=== PATIENT | female | born 1975 | race Caucasian/White ===

== ENCOUNTER 2024-11-18 18:51 | Inpatient (IN) | payer OTHER, SELFPAY ==
[2024-11-18 18:59] VITALS: BP 154/92; PULSE 102; RESP 20; TEMP 36.8; O2SAT 95; BMI 28.7
--- NOTE | 2024-11-18 19:41 | PD.EDFMALE ---
ED Female Urogenital RME/HPI General Chief complaint: Urogenital-Female Stated complaint: UTI, kidney transplant needs Ertapenem IV Time Seen by Provider: 11/18/24 19:24 Arrival date/time: 11/18/24 18:51 RME / HPI RME / HPI Narrative: 48-year-old female with a past medical history of type 1 diabetes and kidney transplant in June, presents to the ED under the direction of her metal products viewer for IV antibiotics due to a urine culture that was resulted on 11/16/2024. She has been taking Macrobid for a urinary tract infection, but the culture results indicate there is no sensitivity to Macrobid. A note was sent to the patient by [facility] that indicates she needs IV ertapenem for 10 days. She does not indicate a specific dose whether 1 g or 500 mg for renal disease dosing. A new urinalysis was obtained and CBC and CMP were ordered for evaluation of her renal function. Related Data Home Medications ?Medication ?Instructions ?Recorded ?Confirmed clonazepam 0.5 mg tablet 0.5 mg PO HS 06/02/21 01/28/24 duloxetine 60 mg capsule,delayed 60 mg PO HS 07/02/21 01/28/24 release hydralazine 100 mg tablet 100 mg PO TID 09/06/21 01/28/24 pregabalin 150 mg capsule (Lyrica) 150 mg PO HS 05/26/22 01/28/24 ondansetron HCl 4 mg tablet 4 mg PRN PRN Nausea 10/14/22 01/28/24 glucagon 1 mg/0.2 mL subcutaneous 1 mg subcut PRN PRN Hypoglycemia 02/16/23 01/28/24 auto-injector (Gvoke HypoPen 2-Pack) sevelamer carbonate 800 mg tablet 800 mg PO TID 02/16/23 01/28/24 bupropion HCl 150 mg 24 hr tablet, 150 mg PO DAILY 11/18/23 01/28/24 extended release furosemide 80 mg tablet 80 mg PO DAILY 11/18/23 01/28/24 losartan 100 mg tablet 100 mg PO DAILY 11/18/23 01/28/24 vitamin B complex-vitamin C-folic 1 tab DAILY 11/18/23 01/28/24 acid 0.8 mg tablet (Alma-Farzana) Allergies Allergy/AdvReac Type Severity Reaction Status Date / Time No Known Allergies Allergy Verified 11/18/24 18:56 Course Course Course Narrative: Initial vital signs blood pressure 154/92, pulse 102, respirations 20 and nonlabored, temperature 98.3, O2 sat 95% on room air. CBC reveals a normal white count of 7.4, elevated H&H of 16.5 and 49.1 with normal platelets. ANC is normal at 6.6. CMP reveals a low sodium of 128, low chloride of 94, normal potassium, normal CO2 and gap. BUN and creatinine are mildly elevated at 27/1.4. Glucose is severely elevated at 659. Urinalysis reveals clear colorless urine with a specific gravity of 1.023 with 4+ glucose, negative ketones, negative leukocyte esterase, 1 RBC, 5 WBCs, and rare bacteria. Patient has an insulin pump and she gave herself 13 units of insulin after the lab result came back with 659. Recheck of her blood sugar revealed the low 300s. She was given 1 L of sodium chloride. Although the note from [facility] kidney transplant center indicated that the patient needed to be on IV ertapenem for 10 days, this facility does not carry or ertapenem therefore the patient was given meropenem 1000 mg IV. Contact was made with [facility] hygiene coordinator, Rafaela, who indicates the patient should be admitted to our facility at this time and if her physicians determine she needs to be transferred, they will contact this facility tomorrow. Resident hospitalist service contacted for admission. Quality Measures none Orders Category Date Time Status COVID-19 Screening Questionnaire NOW Care 11/18/24 23:19 Active Fingerstick [Bedside Blood Glucose] NOW Care 11/18/24 23:06 Active IV [Insert IV] NOW Care 11/18/24 19:44 Completed CBC Stat Lab 11/18/24 20:21 Completed CMP [Comprehensive Metabolic Panel] Stat Lab 11/18/24 20:21 Completed Urinalysis, C/S if Indicated Stat Lab 11/18/24 19:48 Completed Meropenem Inj [Merrem Inj] 1,000 mg Med 11/19/24 00:11 Discontinued SODIUM CHLORIDE 0.9% (Popper) [Ns 0.9% (P)] 50 ml IV X1 Sodium Chloride 0.9% 1000 ml [Ns] 1,000 ml Med 11/18/24 22:19 Discontinued IV 999 mls/hr Vital Signs Vital signs: Vital Signs Temperature 98.3 F 11/18/24 18:59 Pulse Rate 102 H 11/18/24 18:59 Respiratory Rate 20 11/18/24 18:59 Blood Pressure 154/92 H 11/18/24 18:59 Pulse Oximetry (%) 95 11/18/24 18:59 Oxygen Delivery Method Room Air 11/18/24 18:59 Urogenital - Female Medications / Prescriptions Medication administrations:: Medication Administration History Discontinued Medications Sodium Chloride (Ns) 1,000 mls @ 999 mls/hr IV .Q1H1M ONE Stop: 11/18/24 23:19 Last Admin: 11/18/24 23:18 Dose: 999 mls/hr Documented By: CVL Meropenem 1,000 mg/ Sodium (Chloride) 50 mls @ 100 mls/hr IV X1 ONE Stop: 11/19/24 00:12 Discharge Plan Prescriptions/Referrals Prescriptions/Med Rec: No Action clonazepam 0.5 mg tablet 0.5 mg PO HS duloxetine 60 mg capsule,delayed release(DR/EC) 60 mg PO HS Patient Comments: TAKE 1 CAPSULE BY MOUTH AT BEDTIME hydralazine 100 mg tablet 100 mg PO TID pregabalin [Lyrica] 150 mg Capsule 150 mg PO HS sevelamer carbonate 800 mg tablet 800 mg PO TID Patient Comments: TAKE 1 TABLET BY MOUTH THREE TIMES A DAY WITH MEALS Gvoke HypoPen 2-Pack 1 mg/0.2 mL auto-injector 1 mg SUBCUT PRN PRN (Reason: Hypoglycemia) Patient Comments: INJECT 1MG SUBCUTANEOUS NEEDED FOR LOW BS 30 DAYS furosemide 80 mg tablet 80 mg PO DAILY Alma-Farzana 0.8 mg Tablet 1 tab DAILY losartan 100 mg tablet 100 mg PO DAILY Patient Comments: TAKE 1 TABLET BY MOUTH EVERY DAY bupropion HCl 150 mg tablet extended release 24 hr 150 mg PO DAILY Patient Comments: TAKE 1 TABLET BY MOUTH EVERY DAY IN THE MORNING FOR 30 DAYS ondansetron HCl 4 mg tablet 4 mg PRN PRN (Reason: Nausea) Patient Comments: TAKE 1 TABLET BY MOUTH EVERY 8 HOURS NEEDED FOR NAUSEA Referrals: Sofi Granados MD [Primary Care Provider] - In 1 week Patient/Caregiver Discharge Instructions Print Language: Greek
[2024-11-18 19:52] LABS: Collection Type, Urine Clean Catch; Squamous Epithelial Cell,Urine 0 /hpf (0-5)
[2024-11-18 20:13] LABS: Bacteria,Urine Rare; Bilirubin,Urine Negative (Negative); Blood,Urine Negative (Negative); Clarity,Urine Clear (Clear/Hazy); Color,Urine Colorless (Lt Yel-Yel); Culture Indicated,Urine Not Indicated; Glucose, Urine 4+ (Negative); Ketones,Urine Negative (Negative); Leukocyte Esterase,Urine Negative (Negative); Nitrite,Urine Negative (Negative); PH,Urine 6.0 (5.0-7.0); Protein,Urine Negative (Neg - Trace); RBC,Urine 1 /hpf (0-3); Specific Gravity,Urine 1.023 (1.001-1.035); Urobilinogen,Urine Negative mg/dL (0.0-1.0); WBC,Urine 5 /hpf (0-5)
[2024-11-18 20:41] LABS: Basophils # (Auto) 0.0 Thou/mm3 (0.0-0.2); Basophils % (Auto) 0 % (0-2.5); Eosinophils # (Auto) 0.0 Thou/mm3 (0.0-0.5); Eosinophils % (Auto) 0 % (0-10); Hematocrit 49.1 % (36.0-46.0); Hemoglobin 16.5 g/dL (12.0-16.0); Immature Granulocytes Auto 0.02 Thou/mm3 (0.00-0.00); Lymphocytes # (Auto) 0.2 Thou/mm3 (1.0-4.8); Lymphocytes % (Auto) 2 % (10-50); Mean Corpuscular HGB Conc 33.6 g/dl (31.0-37.0); Mean Corpuscular Hemoglobin 32.2 pg (25.0-35.0); Mean Corpuscular Volume 96 fL (80-100); Monocytes # (Auto) 0.6 Thou/mm3 (0.0-0.8); Monocytes % (Auto) 8 % (0-12); Neutrophils # (Auto) 6.6 Thou/mm3 (1.8-7.7); Neutrophils % (Auto) 89 % (37-80); Nucleated Red Blood Cell # 0.00 Thou/mm3 (0.00-0.00); Nucleated Red Blood Cell % 0 /100 WBC (0); Platelet Count 172 Thou/mm3 (140-440); RDW Standard Deviation 45.3 fL (36.4-46.3); Red Blood Count 5.13 Miln/mm3 (4.00-5.20); White Blood Count 7.4 Thou/mm3 (3.6-11.0)
[2024-11-18 21:11] LABS: Alanine Aminotransferase 15 U/L (10-49); Albumin, Serum 4.2 gm/dL (3.5-5.0); Albumin/Globulin Ratio 1.8 (1.2-2.2); Alkaline Phosphatase 135 U/L (46-116); Anion Gap 10 (7-16); Aspartate Amino Transferase 12 U/L (0-34); BUN/Creatinine Ratio 19 Ratio (12-20); Bilirubin,Total 0.7 mg/dL (0.3-1.2); Blood Urea Nitrogen 27 mg/dL (9-23); Calcium 9.5 mg/dL (8.3-10.6); Calcium (Corrected) 9.5 mg/dL (8.5-10.1); Carbon Dioxide 23.9 mMol/L (20.0-31.0); Chloride 94 mMol/L (98-107); Creatinine (Component) 1.4 mg/dL (0.6-1.3); Estimated Creatinine Clearance 58.7 mL/min (>60); Globulin 2.3 gm/dL (2.3-3.5); Osmolality,Calculated 293 (275-295); Potassium 4.5 mMol/L (3.4-5.1); Sodium 128 mMol/L (136-145); Total Protein 6.5 gm/dL (5.7-8.2); eGFR 46 See Note
[2024-11-18 21:14] LABS: Glucose 659 mg/dL (74-106)
--- NOTE | 2024-11-18 21:19 | PC.NURSE ---
Lab called with critical lab value blood glucose of 659. Patient is type one diabetic. Patient alert and oriented, denies malaise, abdominal pain, n/v. Patient wears insulin pump but does not have CGM on so pump has not been auto-correcting. Patient input blood glucose to insulin pump and bolus'd 13 units short acting Humalog. Provider in room with patient during bolus. Charge nurse made aware. Recheck blood sugar @8983.
[2024-11-18 23:10] VITALS: BP 120/76; PULSE 85; RESP 20; TEMP 37.1; O2SAT 97
[2024-11-18] MEDS: SODIUM CHLORIDE 0.9% 1000 ML 1,000 ML 999 ML IV (23:18)
--- NOTE | 2024-11-19 01:07 | ESHP_ITS ---
<Statement entered by Gurdeep Ledbetter MD - 11/20/24 06:26> I have discussed and was present for the essential components of the history, physical examination, diagnosis, and treatment plan with the resident. I agree with the patient's care as documented by the resident and amended herein by me. Gurdeep Ledbetter MD FACP. Documentation for date of: 11/19/24 HPI History of Present Illness Chief complaint: I was told by my transplant team to come for IV antibiotics History of present illness: 48-year-old female with history of type 1 diabetes mellitus, ESRD s/p kidney transplant (08/14/24 at [facility]), and MRSA osteomyelitis (remote) presenting at the request of her transplant team for initiation of IV antibiotics for a urinary tract infection. UTI symptoms began ~1 week ago, with urinary pressure and incomplete emptying. Initially started on nitrofurantoin (Macrobid) as outpatient, but [facility] culture revealed resistance; she was contacted today by her plastic surgery coordinator and instructed to present for 10 days of IV antibiotics. Due to recent transplant, PICC line is avoided. Currently denies dysuria, urgency, frequency, flank pain, hematuria, foul- smelling urine, fever, or chills. No history of resistant gram-negative UTIs, but history of MRSA osteomyelitis. Found to have hyperglycemia in ED (BG 659) due to missed insulin overnight, her Dexcom sensor was charging and not connected to pump; she gave herself 13 units before arrival. BG improved to low 300s with fluids and insulin. No symptoms of DKA or HHS. No missed immunosuppressant doses. No chest pain, palpitations, SOB, orthopnea, edema, headache, vision changes, nausea, vomiting, diarrhea, constipation, or focal neurologic deficits. Review of Systems: All systems reviewed and negative except as noted above. Past Medical History: * ESRD secondary to type 1 DM * Type 1 diabetes mellitus * MRSA osteomyelitis (remote) * Hypertension * Dyslipidemia * Orthostatic hypotension Past Surgical History: * Kidney transplant (08/14/24) * AV fistula placement (2022) * Partial toe amputation for osteomyelitis * * Appendectomy * Tonsillectomy * Cataract extraction with lens replacement Medications (per patient?s [facility] binder, confirmed with patient) Immunosuppressants / Prophylaxis: (All continue) * Tacrolimus (Prograf) ? 2 mg AM, 1.5 mg PM * Mycophenolate mofetil (Cellcept) ? 750 mg AM, 750 mg PM * Prednisone ? 5 mg daily * Valganciclovir ? 450 mg daily * Fluconazole ? 100 mg daily (lifelong) * Dapsone ? 100 mg daily for polycythemia Other chronic meds: (All continued, besides losartan and nifedipine) * Pantoprazole 40 mg daily * Docusate 100 mg BID * Ezetimibe 10 mg daily * Pregabalin 150 mg at bedtime * Duloxetine 60 mg daily * Clonazepam 0.5 mg at bedtime * Bupropion XL 150 mg AM * Nifedipine 30 mg BID (held) * Losartan 50 mg daily (held) * Hydralazine 100 mg TID PRN SBP >140 * Ondansetron 4 mg q4?6h PRN * Phosphate neutral 250 mg BID * ASA 81 mg daily * Diclofenac topical PRN neck pain Diabetes management: * Insulin pump (basal/bolus per home settings) linked to Dexcom sensor Allergies: * Chlorhexidine ? rash * Most adhesive tapes ? rash/irritation (tolerates briefly) Family History: * Mother: Rheumatoid arthritis, glomerulonephritis * Father: Autoimmune arthritis (unspecified) Social History: * Lives with , mother, and daughter. * No tobacco, alcohol, or illicit drug use. Exam Vital Signs Temp Pulse Resp BP Pulse Ox O2 Del Method 98.7 F 85 20 120/76 97 Room Air 11/18/24 23:10 11/18/24 23:10 11/18/24 23:10 11/18/24 23:10 11/18/24 23:10 11/18/24 23:10 Narrative Exam General: Well-appearing, alert, and oriented ?3; in no acute distress. HEENT: Normocephalic, atraumatic. PERRLA, EOMI. No scleral icterus or conjunctival injection. Oropharynx clear, mucous membranes moist. Neck: Supple, no lymphadenopathy, no JVD. Cardiac: Regular rate and rhythm; normal S1, S2; no murmurs, rubs, or gallops. Lungs: Clear to auscultation bilaterally; no wheezes, rales, or rhonchi. Non- labored respirations. Abdomen: Soft, non-tender, non-distended. No CVA tenderness bilaterally. No suprapubic tenderness. Bowel sounds present. Extremities: No peripheral edema; pulses 2+ bilaterally in all extremities. Skin: Warm, dry, intact; no rash or lesions. Neuro: Alert and oriented ?3; normal speech; no focal motor or sensory deficits. Psych: Cooperative, normal mood and affect. Results: Labs 11/18/24 20:21 11/18/24 20:21 Labs: Short CBC 11/18/24 Range/Units 20:21 WBC 7.4 (3.6-11.0) Thou/mm3 Hgb 16.5 H (12.0-16.0) g/dL Hct 49.1 H (36.0-46.0) % Plt Count 172 (140-440) Thou/mm3 BMP 11/18/24 20:21 Sodium 128 L Potassium 4.5 Chloride 94 L Carbon Dioxide 23.9 BUN 27 H Creatinine 1.4 H Glucose 659 H* Calcium 9.5 Liver Function 11/18/24 Range/Units 20:21 Total Bilirubin 0.7 (0.3-1.2) mg/dL AST 12 (0-34) U/L ALT 15 (10-49) U/L Alkaline Phosphatase 135 H (46-116) U/L Albumin 4.2 (3.5-5.0) gm/dL Urine 11/18/24 Range/Units 19:48 Urine Color Colorless A (Lt Yel-Yel) Urine Clarity Clear (Clear/Hazy) Urine pH 6.0 (5.0-7.0) Ur Specific Eldred 1.023 (1.001-1.035) Urine Protein Negative (Neg - Trace) Urine Glucose (UA) 4+ A (Negative) Quality Measures Quality Measures VTE prophylaxis Medications Home Medications and Allergies Home Medications ?Medication ?Instructions ?Recorded ?Confirmed ?Type clonazepam 0.5 mg tablet 0.5 mg PO HS 06/02/21 History duloxetine 60 mg capsule,delayed 60 mg PO .AM 07/02/21 11/19/24 History release pregabalin 150 mg capsule (Lyrica) 150 mg PO HS 11/19/24 History ondansetron HCl 4 mg tablet 4 mg PO PRN PRN Nausea 10/3011/19/24 History glucagon 1 mg/0.2 mL subcutaneous 1 mg subcut PRN PRN Hypoglycemia 02/16/23 11/19/24 History auto-injector (Erniealan Tayoen 2-Pack) bupropion HCl 150 mg 24 hr tablet, 150 mg PO DAILY 01/3111/19/24 History extended release losartan 100 mg tablet 100 mg PO DAILY 11/18/2304/03 History Held on 11/19/24. Instructions: Doctor's Order aspirin 81 mg tablet,delayed 81 mg PO QDAY 11/19/24 History release (Adult Low Dose Aspirin) dapsone 100 mg tablet 100 mg PO DAILY 11/19/2404/03 History docusate sodium 100 mg capsule 100 mg PO BID 11/19/24 11/19/24 History ezetimibe 10 mg tablet 10 mg PO QDAY 11/19/2411/19 History fluconazole 100 mg tablet 100 mg PO Q24H 11/19/2411/08 History mycophenolate mofetil 250 mg 750 mg PO Q12H 11/19/24 0 11/19/24 History capsule nifedipine 90 mg tablet,extended 90 mg PO PRN 11/19/24 11/19/24 History release 24 hr pantoprazole 40 mg tablet,delayed 40 mg PO DAILY 11/1911/19/24 History release prednisone 5 mg tablet 5 mg PO DAILY 11/19/2411/19 History sodium di- and 2 tab PO BID 11/19/24 History monophosphate-potassium phos monobasic 250 mg tablet (Phospha Neutral) tacrolimus 1 mg capsule, 2 mg PO .AM 11/19/24 5 History immediate-release valganciclovir 450 mg tablet 450 mg PO DAILY 11/19/24 11/19/24 History Allergies Allergy/AdvReac Type Severity Reaction Status Date / Time No Known Allergies Allergy Verified 11/18/24 18:56 Visit Medications Discontinued Medications Sodium Chloride (Ns) 1,000 mls @ 999 mls/hr IV .Q1H1M ONE Stop: 11/18/24 23:19 Last Infusion: 11/19/24 00:28 Dose: Infused Meropenem 1,000 mg/ Sodium (Chloride) 50 mls @ 100 mls/hr IV X1 ONE Stop: 11/19/24 00:12 Assessment & Plan Plan 48F with type 1 DM s/p kidney transplant (08/14/24) presenting for IV antibiotics per transplant team for resistant UTI, unable to receive PICC, on meropenem; also had hyperglycemia from missed insulin, now improving. # Urinary Tract Infection Kidney transplant patient with culture-confirmed nitrofurantoin-resistant UTI, afebrile, hemodynamically stable, minimal urinary symptoms, UA with mild pyuria; PICC avoided due to infection risk in early post-transplant period. [facility] transplant team recommended ertapenem for 10 days, but ertapenem is not available at this facility, initiating meropenem as alternative. Plan: * Meropenem 1 g IV q8h (start: 11/19- ) in place of ertapenem * Anticipate 10-day course; confirmed duration with [facility] transplant ID * Monitor for fever, flank pain, dysuria, or worsening labs * Request [facility] records for urine culture, sensitivities, and ID report instead of repeating urine culture here # s/p Kidney Transplant 08/14/24 transplant for ESRD from type 1 DM; no prior rejection, creatinine slightly above baseline, on triple immunosuppression with antiviral, antifungal, and PJP prophylaxis; fully adherent by report. Plan: * Continue tacrolimus, mycophenolate, prednisone * Continue valganciclovir, fluconazole, dapsone * Avoid nephrotoxic medications * Notify [facility] plastic surgery coordinator * Daily BMP # Type 1 Diabetes Mellitus with Hyperglycemia Long-standing type 1 DM on insulin pump; hyperglycemia to 659 due to missed insulin overnight from Dexcom charging; improved to low 300s with insulin/fluids; no symptoms or labs consistent with DKA. Plan: * Resume insulin pump per home settings * BG q6hr * Check b-hydroxybutyrate to definitively exclude ketosis # Hyponatremia Mild, asymptomatic hyponatremia (Na 128); likely pseudohyponatremia without true hypotonic state. Plan: * Repeat BMP once BG normalized * Daily BMP monitoring # Orthostatic Hypotension Chronic issue post-transplant; BP medications (nifedipine, losartan) held unless SBP elevated; no recent syncope. Plan: * Continue to hold nifedipine/losartan unless SBP elevated * Orthostatic vitals daily Health Maintenance: Dispo: Admit to medicine Diet: Diabetic DVT prophylaxis: N/A GI prophylaxis: Pantoprazole Code status: Full ----- Plan discussed with attending physician Dr. Khloe Saavedra MD PGY-1 Internal Medicine
--- NOTE | 2024-11-19 01:07 | PD.RESHP ---
Documentation for date of: 11/19/24 HPI History of Present Illness Chief complaint: I was told by my transplant team to come for IV antibiotics History of present illness: 48-year-old female with history of type 1 diabetes mellitus, ESRD s/p kidney transplant (08/14/[address] [facility]), and MRSA osteomyelitis (remote) presenting at the request of her transplant team for initiation of IV antibiotics for a urinary tract infection. UTI symptoms began ~1 week ago, with urinary pressure and incomplete emptying. Initially started on nitrofurantoin (Macrobid) as outpatient, but [facility] culture revealed resistance; she was contacted today by her talent development coordinator and instructed to present for 10 days of IV antibiotics. Due to recent transplant, PICC line is avoided. Currently denies dysuria, urgency, frequency, flank pain, hematuria, foul-smelling urine, fever, or chills. No history of resistant gram-negative UTIs, but history of MRSA osteomyelitis. Found to have hyperglycemia in ED (BG 659) due to missed insulin overnight, her Dexcom sensor was charging and not connected to pump; she gave herself 13 units before arrival. BG improved to low 300s with fluids and insulin. No symptoms of DKA or HHS. No missed immunosuppressant doses. No chest pain, palpitations, SOB, orthopnea, edema, headache, vision changes, nausea, vomiting, diarrhea, constipation, or focal neurologic deficits. Review of Systems: All systems reviewed and negative except as noted above. Past Medical History: ESRD secondary to type 1 DM Type 1 diabetes mellitus MRSA osteomyelitis (remote) Hypertension Dyslipidemia Orthostatic hypotension Past Surgical History: Kidney transplant (08/14/24) AV fistula placement (2022) Partial toe amputation for osteomyelitis Appendectomy Tonsillectomy Cataract extraction with lens replacement Medications (per patient?s [facility] binder, confirmed with patient) Immunosuppressants / Prophylaxis: (All continue) Tacrolimus (Prograf) ? 2 mg AM, 1.5 mg PM Mycophenolate mofetil (Cellcept) ? 750 mg AM, 750 mg PM Prednisone ? 5 mg daily Valganciclovir ? 450 mg daily Fluconazole ? 100 mg daily (lifelong) Dapsone ? 100 mg daily for polycythemia Other chronic meds: (All continued, besides losartan and nifedipine) Pantoprazole 40 mg daily Docusate 100 mg BID Ezetimibe 10 mg daily Pregabalin 150 mg at bedtime Duloxetine 60 mg daily Clonazepam 0.5 mg at bedtime Bupropion XL 150 mg AM Nifedipine 30 mg BID (held) Losartan 50 mg daily (held) Hydralazine 100 mg TID PRN SBP >140 Ondansetron 4 mg q4?6h PRN Phosphate neutral 250 mg BID ASA 81 mg daily Diclofenac topical PRN neck pain Diabetes management: Insulin pump (basal/bolus per home settings) linked to Dexcom sensor Allergies: Chlorhexidine ? rash Most adhesive tapes ? rash/irritation (tolerates briefly) Family History: Mother: Rheumatoid arthritis, glomerulonephritis Father: Autoimmune arthritis (unspecified) Social History: Lives with , mother, and daughter. No tobacco, alcohol, or illicit drug use. Exam Vital Signs Temp Pulse Resp BP Pulse Ox O2 Del Method 98.7 F 85 20 120/76 97 Room Air 11/18/24 23:10 11/18/24 23:10 11/18/24 23:10 11/18/24 23:10 11/18/24 23:10 11/18/24 23:10 Narrative Exam General: Well-appearing, alert, and oriented ?3; in no acute distress. HEENT: Normocephalic, atraumatic. PERRLA, EOMI. No scleral icterus or conjunctival injection. Oropharynx clear, mucous membranes moist. Neck: Supple, no lymphadenopathy, no JVD. Cardiac: Regular rate and rhythm; normal S1, S2; no murmurs, rubs, or gallops. Lungs: Clear to auscultation bilaterally; no wheezes, rales, or rhonchi. Non-labored respirations. Abdomen: Soft, non-tender, non-distended. No CVA tenderness bilaterally. No suprapubic tenderness. Bowel sounds present. Extremities: No peripheral edema; pulses 2+ bilaterally in all extremities. Skin: Warm, dry, intact; no rash or lesions. Neuro: Alert and oriented ?3; normal speech; no focal motor or sensory deficits. Psych: Cooperative, normal mood and affect. Results: Labs 11/18/24 20:21 11/18/24 20:21 Labs: Short CBC 11/18/24 Range/Units 20:21 WBC 7.4 (3.6-11.0) Thou/mm3 Hgb 16.5 H (12.0-16.0) g/dL Hct 49.1 H (36.0-46.0) % Plt Count 172 (140-440) Thou/mm3 BMP 11/18/24 20:21 Sodium 128 L Potassium 4.5 Chloride 94 L Carbon Dioxide 23.9 BUN 27 H Creatinine 1.4 H Glucose 659 H* Calcium 9.5 Liver Function 11/18/24 Range/Units 20:21 Total Bilirubin 0.7 (0.3-1.2) mg/dL AST 12 (0-34) U/L ALT 15 (10-49) U/L Alkaline Phosphatase 135 H (46-116) U/L Albumin 4.2 (3.5-5.0) gm/dL Urine 11/18/24 Range/Units 19:48 Urine Color Colorless A (Lt Yel-Yel) Urine Clarity Clear (Clear/Hazy) Urine pH 6.0 (5.0-7.0) Ur Specific [place] 1.023 (1.001-1.035) Urine Protein Negative (Neg - Trace) Urine Glucose (UA) 4+ A (Negative) Quality Measures Quality Measures VTE prophylaxis Medications Home Medications and Allergies Home Medications ?Medication ?Instructions ?Recorded ?Confirmed ?Type clonazepam 0.5 mg tablet 0.5 mg PO HS 06/02/21 11/19/24 History duloxetine 60 mg capsule,delayed 60 mg PO .AM 07/02/21 11/19/24 History release pregabalin 150 mg capsule (Lyrica) 150 mg PO HS 05/26/22 11/19/24 History ondansetron HCl 4 mg tablet 4 mg PO PRN PRN Nausea 10/14/22 11/19/24 History glucagon 1 mg/0.2 mL subcutaneous 1 mg subcut PRN PRN Hypoglycemia 02/16/23 11/19/24 History auto-injector (Gvoke HypoPen 2-Pack) bupropion HCl 150 mg 24 hr tablet, 150 mg PO DAILY 11/18/23 11/19/24 History extended release losartan 100 mg tablet 100 mg PO DAILY 11/18/23 11/19/24 History Held on 11/19/24. Instructions: Doctor's Order aspirin 81 mg tablet,delayed 81 mg PO QDAY 11/19/24 11/19/24 History release (Adult Low Dose Aspirin) dapsone 100 mg tablet 100 mg PO DAILY 11/19/24 11/19/24 History docusate sodium 100 mg capsule 100 mg PO BID 11/19/24 11/19/24 History ezetimibe 10 mg tablet 10 mg PO QDAY 11/19/24 11/19/24 History fluconazole 100 mg tablet 100 mg PO Q24H 11/19/24 11/19/24 History mycophenolate mofetil 250 mg 750 mg PO Q12H 11/19/24 11/19/24 History capsule nifedipine 90 mg tablet,extended 90 mg PO PRN 11/19/24 11/19/24 History release 24 hr pantoprazole 40 mg tablet,delayed 40 mg PO DAILY 11/19/24 11/19/24 History release prednisone 5 mg tablet 5 mg PO DAILY 11/19/24 11/19/24 History sodium di- and 2 tab PO BID 11/19/24 11/19/24 History monophosphate-potassium phos monobasic 250 mg tablet (Phospha Neutral) tacrolimus 1 mg capsule, 2 mg PO .AM 11/19/24 11/19/24 History immediate-release valganciclovir 450 mg tablet 450 mg PO DAILY 11/19/24 11/19/24 History Allergies Allergy/AdvReac Type Severity Reaction Status Date / Time No Known Allergies Allergy Verified 11/18/24 18:56 Visit Medications Discontinued Medications Sodium Chloride (Ns) 1,000 mls @ 999 mls/hr IV .Q1H1M ONE Stop: 11/18/24 23:19 Last Infusion: 11/19/24 00:28 Dose: Infused Meropenem 1,000 mg/ Sodium (Chloride) 50 mls @ 100 mls/hr IV X1 ONE Stop: 11/19/24 00:12 Assessment & Plan Plan 48F with type 1 DM s/p kidney transplant (08/14/24) presenting for IV antibiotics per transplant team for resistant UTI, unable to receive PICC, on meropenem; also had hyperglycemia from missed insulin, now improving. # Urinary Tract Infection Kidney transplant patient with culture-confirmed nitrofurantoin-resistant UTI, afebrile, hemodynamically stable, minimal urinary symptoms, UA with mild pyuria; PICC avoided due to infection risk in early post-transplant period. [facility] transplant team recommended ertapenem for 10 days, but ertapenem is not available at this facility, initiating meropenem as alternative. Plan: Meropenem 1 g IV q8h (start: 11/19- ) in place of ertapenem Anticipate 10-day course; confirmed duration with [facility] transplant ID Monitor for fever, flank pain, dysuria, or worsening labs Request [facility] records for urine culture, sensitivities, and ID report instead of repeating urine culture here # s/p Kidney Transplant 08/14/24 transplant for ESRD from type 1 DM; no prior rejection, creatinine slightly above baseline, on triple immunosuppression with antiviral, antifungal, and PJP prophylaxis; fully adherent by report. Plan: Continue tacrolimus, mycophenolate, prednisone Continue valganciclovir, fluconazole, dapsone Avoid nephrotoxic medications Notify [facility] talent development coordinator Daily BMP # Type 1 Diabetes Mellitus with Hyperglycemia Long-standing type 1 DM on insulin pump; hyperglycemia to 659 due to missed insulin overnight from Dexcom charging; improved to low 300s with insulin/fluids; no symptoms or labs consistent with DKA. Plan: Resume insulin pump per home settings BG q6hr Check b-hydroxybutyrate to definitively exclude ketosis # Hyponatremia Mild, asymptomatic hyponatremia (Na 128); likely pseudohyponatremia without true hypotonic state. Plan: Repeat BMP once BG normalized Daily BMP monitoring # Orthostatic Hypotension Chronic issue post-transplant; BP medications (nifedipine, losartan) held unless SBP elevated; no recent syncope. Plan: Continue to hold nifedipine/losartan unless SBP elevated Orthostatic vitals daily Health Maintenance: Dispo: Admit to medicine Diet: Diabetic DVT prophylaxis: N/A GI prophylaxis: Pantoprazole Code status: Full ----- Plan discussed with attending physician Dr. Khloe Saavedra MD PGY-1 Internal Medicine
[2024-11-19 01:33] LABS: Beta Hydroxybutyrate 0.2 mmol/L (<0.6)
[2024-11-19] MEDS: MEROPENEM INJ 1,000 MG in SODIUM CHLORIDE 0.9% (Popper) 50 ML 100 MG IV ×4 (01:38→21:17)
--- NOTE | 2024-11-19 02:03 | PC.NURSE ---
MYCOPHENOLATE AND FUCONAZOLE NOT GIVEN PT ALREADY TOOK IT.
--- NOTE | 2024-11-19 02:24 | PC.LAC ---
REPORT GIVEN TO ARABELLA MYERS AT [facility].
[2024-11-19 02:36] VITALS: BMI 30.4
[2024-11-19 02:56] VITALS: BP 146/84; PULSE 88; RESP 18; TEMP 36.2; O2SAT 95
--- NOTE | 2024-11-19 03:30 | PC.NURSE ---
called Dr. Saavedra regarding patient's sodium of 128 on admission, per doctor, no need to add fluids as of now, hyponatremia may be related to her hyperglycemia and patient has no symptoms. Per doctor to wait for chemistry draw in the AM labs to see how her sodium is. No new orders at this time.
[2024-11-19 04:00] VITALS: BP 135/79; PULSE 78; RESP 18; TEMP 36.2; O2SAT 94
--- NOTE | 2024-11-19 06:03 | XR_ITS ---
Examination: Renal sonography Renal Doppler sonographic evaluation transplant kidney Date and time: November 19, 2024 0726 hours INDICATIONS: Status post renal transplant August 14, 2024 with urinary tract infections beginning November 13, 2024. FINDINGS: Transplant kidney 12.3 cm renal cortex 2.3 cm No elevation of peak systolic velocities Renal arterial and venous flow noted Normal resistive index Mildly dilated renal pelvis IMPRESSION: No renal cortical thinning No elevation of peak systolic velocities No sonographic Doppler findings of renal artery stenosis
[2024-11-19 06:29] LABS: Basophils # (Auto) 0.0 Thou/mm3 (0.0-0.2); Basophils % (Auto) 1 % (0-2.5); Eosinophils # (Auto) 0.1 Thou/mm3 (0.0-0.5); Eosinophils % (Auto) 2 % (0-10); Hematocrit 49.4 % (36.0-46.0); Hemoglobin 16.4 g/dL (12.0-16.0); Immature Granulocytes Auto 0.03 Thou/mm3 (0.00-0.00); Lymphocytes # (Auto) 0.2 Thou/mm3 (1.0-4.8); Lymphocytes % (Auto) 3 % (10-50); Mean Corpuscular HGB Conc 33.2 g/dl (31.0-37.0); Mean Corpuscular Hemoglobin 31.8 pg (25.0-35.0); Mean Corpuscular Volume 96 fL (80-100); Monocytes # (Auto) 0.7 Thou/mm3 (0.0-0.8); Monocytes % (Auto) 11 % (0-12); Neutrophils # (Auto) 5.3 Thou/mm3 (1.8-7.7); Neutrophils % (Auto) 83 % (37-80); Nucleated Red Blood Cell # 0.00 Thou/mm3 (0.00-0.00); Nucleated Red Blood Cell % 0 /100 WBC (0); Platelet Count 155 Thou/mm3 (140-440); RDW Standard Deviation 44.2 fL (36.4-46.3); Red Blood Count 5.15 Miln/mm3 (4.00-5.20); White Blood Count 6.3 Thou/mm3 (3.6-11.0)
[2024-11-19 06:45] LABS: Anion Gap 11 (7-16); BUN/Creatinine Ratio 16 Ratio (12-20); Blood Urea Nitrogen 16 mg/dL (9-23); Calcium 9.5 mg/dL (8.3-10.6); Carbon Dioxide 23.5 mMol/L (20.0-31.0); Chloride 101 mMol/L (98-107); Creatinine (Component) 1.0 mg/dL (0.6-1.3); Estimated Creatinine Clearance 84.6 mL/min (>60); Glucose 337 mg/dL (74-106); Magnesium 1.7 mg/dL (1.6-2.6); Osmolality,Calculated 284 (275-295); Potassium 4.2 mMol/L (3.4-5.1); Sodium 135 mMol/L (136-145); eGFR > 60 See Note
[2024-11-19] MEDS: ACETAMINOPHEN 325 MG TABLET 650 MG PO (07:03)
[2024-11-19 07:24] LABS: Beta Hydroxybutyrate 0.3 mmol/L (<0.6)
[2024-11-19 08:00] VITALS: BP 128/81; PULSE 77; RESP 17; TEMP 36.2; O2SAT 96
[2024-11-19 08:25] LABS: Phosphorous 2.2 mg/dL (2.4-5.1)
[2024-11-19 08:26] LABS: Glucose Estimated Average 154 mg/dL (80-131); Hemoglobin A1C 7.0 % Hgb (4.8-6.0)
[2024-11-19] MEDS: ASPIRIN EC 81 MG TABEC PO (09:10)
[2024-11-19] MEDS: PANTOPRAZOLE 40 MG TABLET PO (09:10)
[2024-11-19] MEDS: EZETIMIBE 10 MG TABLET PO (09:10)
[2024-11-19] MEDS: DULoxetine HCL 30 MG CAPSULE 60 MG PO (09:11)
[2024-11-19] MEDS: MYCOPHENOLATE 250 MG CAPSULE (NON-FORMULARY) 750 MG PO ×2 (10:40→21:14)
[2024-11-19] MEDS: BuPROPion HCL XL 150 MG TABCR PO (10:40)
[2024-11-19] MEDS: DAPSONE 100 MG TABLET PO (10:41)
[2024-11-19] MEDS: TACROLIMUS 1 MG CAPSULE (NON-FORMULARY) 2 MG PO (10:41)
[2024-11-19 12:00] VITALS: BP 128/79; PULSE 70; RESP 17; TEMP 36.2; O2SAT 93
[2024-11-19] MEDS: PHOSPHA 250 NEUTRAL TABLET PO ×2 (12:06→18:38)
[2024-11-19] MEDS: VALGANCICLOVIR 450 MG TABLET PO (12:08)
--- NOTE | 2024-11-19 15:06 | PC.SS ---
SS met with patient who is alert/oriented. Patient states she resides at home with . Patient was admitted for a UTI. Patient states she's independent with ADL's. Patient does not use any DME. Patient states she's post kidney transplant in August of this year at [facility]. Patient follows with an [employer] in [place] for her insulin pump, [employer] Technician in [place], Storage Facility Rental Clerk is Dr. Samaniego and PCP: Dr. Emre Granados. Last p.c.p. appointment was a month ago. Patient may need a picc line for i.v. antibiotics up to 10 days. Patient preference was [facility] as she has had them before. Alt medical decision maker: Trell Rutherford, spouse, D/c plan: [facility] if needing i.v. antibiotics transportation: family
[2024-11-19 16:00] VITALS: BP 129/71; PULSE 79; RESP 17; TEMP 36.3; O2SAT 94
[2024-11-19 20:00] VITALS: BP 115/76; PULSE 85; RESP 18; TEMP 36.2; O2SAT 95
--- NOTE | 2024-11-19 20:21 | ESPR_ITS ---
<Statement entered by John Beltran MD - 11/20/24 15:10> Patient was seen and examined at bedside. Called Clarissa Judah the transplant nurse and coordinator verbalized that the patient can have a PICC line for IV abx ertapeneme for total of 10 days. I reviewed the medication list with her also to confirm getting the patient the right dosages. Anticipated discharge tomorrow with ertapeneme for 10 days till the 11/29/2024 - Patient's plan and care discussed with my attending, Dr. Contreras Beltran MD Internal Medicine PGY-3 Documentation for date of: 11/19/24 Subjective Subjective Interval history: Patient seen at bedside, she is comfortable and calm. She has no complaints, stating she is here for her UTI s/p renal transplant and that she has no current feelings of fever, NVD, SOB, chest pain, or discomfort at all. The transplant center was also called for clarity on PICC line and urine and blood culture sensitivities. They confirm a PICC line is OK as there are no signs of blood infection currently and since meropenem is the only suitable alternative our hospital has for their drug of choice ertapenem. Patient is agreeable to these plans. Patient also confirms she insulin pump and glucose monitor that she is charging and can manage her diabetes without hospital help. Exam Vital Signs Temp Pulse Resp BP Pulse Ox O2 Del Method 97.3 F 79 17 129/71 94 L Room Air 11/19/24 16:00 11/19/24 16:11/19/24 16:11/19/24 16:11/19/24 16:11/19/24 16:00 Narrative Exam General: Well-appearing, alert, and oriented ?3; in no acute distress. HEENT: Normocephalic, atraumatic. PERRLA, EOMI. No scleral icterus or conjunctival injection. Oropharynx clear, mucous membranes moist. Neck: Supple, no lymphadenopathy, no JVD. Cardiac: Regular rate and rhythm; normal S1, S2; no murmurs, rubs, or gallops. Lungs: Clear to auscultation bilaterally; no wheezes, rales, or rhonchi. Non- labored respirations. Abdomen: Soft, non-tender, non-distended. No CVA tenderness bilaterally. No suprapubic tenderness. Bowel sounds present. Extremities: No peripheral edema; pulses 2+ bilaterally in all extremities. Skin: Warm, dry, intact; no rash or lesions. Neuro: Alert and oriented ?3; normal speech; no focal motor or sensory deficits. Psych: Cooperative, normal mood and affect. Objective Labs 11/20/24 05:13 11/20/24 05:13 Labs: Laboratory Results - last 24 hr 11/18/24 11/19/24 11/19/24 20:21 01:20 06:07 WBC 7.4 6.3 RBC 5.13 5.15 Hgb 16.5 H 16.4 H Hct 49.1 H 49.4 H MCV 96 96 MCH 32.2 31.8 MCHC 33.6 33.2 RDW Std Deviation 45.3 44.2 Plt Count 172 155 Neut % (Auto) 89 H 83 H Lymph % (Auto) 2 L 3 L [place] % (Auto) 8 11 Eos % (Auto) 0 2 Baso % (Auto) 0 1 Neut # (Auto) 6.6 5.3 Lymph # (Auto) 0.2 L 0.2 L [place] # (Auto) 0.6 0.7 Eos # (Auto) 0.0 0.1 Baso # (Auto) 0.0 0.0 Immature Gran # (Auto) 0.02 H 0.03 H Absolute Nucleated RBC 0.00 0.00 Immature Gran % 0 1 H Nucleated RBC % 0 0 Sodium 128 L 135 L Potassium 4.5 4.2 Chloride 94 L 101 Carbon Dioxide 23.9 23.5 Anion Gap 10 11 BUN 27 H 16 Creatinine 1.4 H 1.0 Estim Creat Clear Calc 58.7 L 84.6 eGFR 46 L > 60 BUN/Creatinine Ratio 19 16 Glucose 659 H* [address] Glu mg/dL 154 H Hemoglobin A1c 7.0 H Calculated Osmolality 293 284 Calcium 9.5 9.5 Corrected Calcium 9.5 Phosphorus 2.2 L Magnesium 1.7 Total Bilirubin 0.7 AST 12 ALT 15 Alkaline Phosphatase 135 H Total Protein 6.5 Albumin 4.2 Globulin 2.3 Albumin/Globulin Ratio 1.8 Beta-Hydroxybutyrate/Acetoacetate 0.2 0.3 Quality Measures Quality Measures VTE prophylaxis Assessment & Plan Assessment Current Active Medications: Generic Name Dose Route Start Last Admin Trade Name Freq PRN Reason Stop Dose Admin Acetaminophen 650 mg 11/19/24 01:01 11/19/24 07:03 Acetaminophen 325 Mg Tablet PO 12/19/24 01:00 650 mg Q6H PRN Administration Fever >100.4 Aspirin 81 mg 11/19/24 09:00 11/19/24 09:10 Aspirin Ec 81 Mg Tabec PO 12/19/24 08:59 81 mg QDAY CRISTIANE Administration Bupropion HCl 150 mg 11/19/24 09:00 11/19/24 10:40 Bupropion Hcl Xl 150 Mg Tabcr PO 12/19/24 08:59 150 mg DAILY CRISTIANE Administration Clonazepam 0.5 mg 11/19/24 21:00 Clonazepam 0.5 Mg Tablet PO 11/24/24 20:59 HS CRISTIANE Valganciclovir 450 0 ea 11/19/24 11:00 11/19/24 12:08 Mg Tablet PO 12/19/24 10:59 1 tablet QDAY CRISTIANE Administration Dapsone 100 Mg 0 ea 11/19/24 10:00 11/19/24 10:41 Tablet PO 12/19/24 09:59 1 tablet QDAY CRISTIANE Administration Phospha 250 Neutral 0 ea 11/19/24 12:00 11/19/24 18:38 Tablet PO 12/19/24 11:59 2 tablet BIDWM CRISTIANE Administration Dextrose 25 ml 11/19/24 07:53 Dextrose 50%-Water Inj 50 Ml Syringe IV 12/19/24 07:52 Q15MIN PRN BG 50-70 responsive npo pt Dextrose 50 ml 11/19/24 07:53 Dextrose 50%-Water Inj 50 Ml Syringe IV 12/19/24 07:52 Q15MIN PRN BG <50 OR BG <70 & pt unresponsive Docusate Sodium 100 mg 11/19/24 09:00 11/19/24 09:17 Docusate Sod 100 Mg Capsule PO 12/19/24 08:59 Not Given BID CRISTIANE Protocol Duloxetine HCl 60 mg 11/19/24 09:00 11/19/24 09:11 Duloxetine Hcl 30 Mg Capsule PO 12/19/24 08:59 60 mg QDAY CRISTIANE Administration Ezetimibe 10 mg 11/19/24 09:00 11/19/24 09:10 Ezetimibe 10 Mg Tablet PO 12/19/24 08:59 10 mg QDAY CRISTIANE Administration Fluconazole 100 mg 11/19/24 01:45 11/19/24 02:01 Fluconazole 100 Mg Tablet PO 11/26/24 01:44 Not Given Q24H CRISTIANE Glucagon 1 mg 11/19/24 07:53 Glucagon Inj 1 Mg Vial IM Q15MIN PRN BG <70, and no IV access Meropenem 1,000 mg/ Sodium 50 mls @ 100 mls/hr 11/19/24 07:45 11/19/24 14:48 Chloride IV 11/26/24 07:44 100 mls/hr Q8HR CRISTIANE Administration Insulin Human Lispro 0 unit 11/19/24 11:30 11/19/24 17:00 Insulin Lispro (Admelog) 1 Unit/0.01 Ml Unit SC 12/19/24 11:29 Not Given AC CRISTIANE Protocol Mycophenolate Mofetil 750 mg 11/19/24 09:00 11/19/24 10:40 Mycophenolate 250 Mg Capsule (Non-Formulary) PO 12/19/24 01:44 750 mg Q12HR CRISTIANE Administration Ondansetron HCl 4 mg 11/19/24 03:12 Ondansetron Odt 4 Mg Tabrap PO 12/19/24 01:38 Q6HR PRN Nausea Protocol Pantoprazole Sodium 40 mg 11/19/24 09:00 11/19/24 09:10 Pantoprazole 40 Mg Tablet PO 12/19/24 08:59 40 mg DAILY CRISTIANE Administration Prednisone 5 mg 11/19/24 09:00 11/19/24 09:10 Prednisone 5 Mg Tablet PO 12/19/24 08:59 5 mg DAILY CRISTIANE Administration Pregabalin 150 mg 11/19/24 21:00 Pregabalin 50 Mg Capsule PO 12/19/24 20:59 HS CRISTIANE Tacrolimus 2 mg 11/19/24 09:00 11/19/24 10:41 Tacrolimus 1 Mg Capsule (Non-Formulary) PO 12/19/24 08:59 2 mg QDAY CRISTIANE Administration Plan 48F with type 1 DM s/p kidney transplant (08/14/24) presenting for IV antibiotics per transplant team for resistant UTI, PICC line ok per transplant center, on meropenem; also had hyperglycemia from missed insulin, now improved.. # Urinary Tract Infection Kidney transplant patient with culture-confirmed nitrofurantoin-resistant UTI, afebrile, hemodynamically stable, minimal urinary symptoms, UA with mild pyuria; PICC avoided due to infection risk in early post-transplant period. [facility] transplant team recommended ertapenem for 10 days, but ertapenem is not available at this facility, initiating meropenem as alternative. Plan: * Meropenem 1 g IV q8h (start: 11/19- ) in place of ertapenem * Anticipate 10-day course; confirmed duration with [facility] transplant ID * Monitor for fever, flank pain, dysuria, or worsening labs * Request [facility] records for urine culture, sensitivities, and ID report instead of repeating urine culture here * PICC line ordered # s/p Kidney Transplant 08/14/24 transplant for ESRD from type 1 DM; no prior rejection, creatinine slightly above baseline, on triple immunosuppression with antiviral, antifungal, and PJP prophylaxis; fully adherent by report. Plan: * Continue tacrolimus, mycophenolate, prednisone * Continue valganciclovir, fluconazole, dapsone * Avoid nephrotoxic medications * Notify [facility] lab coordinator - completed * Daily BMP # Type 1 Diabetes Mellitus with Hyperglycemia Long-standing type 1 DM on insulin pump; hyperglycemia to 659 due to missed insulin overnight from Dexcom charging; improved to low 300s with insulin/fluids; no symptoms or labs consistent with DKA. Plan: * Resume insulin pump per home settings * BG q6hr * ISS * Check b-hydroxybutyrate to definitively exclude ketosis # Hyponatremia Mild, asymptomatic hyponatremia (Na 128); likely pseudohyponatremia without true hypotonic state. Plan: * Repeat BMP once BG normalized * Daily BMP monitoring # Orthostatic Hypotension Chronic issue post-transplant; BP medications (nifedipine, losartan) held unless SBP elevated; no recent syncope. Plan: * Continue to hold nifedipine/losartan unless SBP elevated * Orthostatic vitals daily Health Maintenance: Dispo: Admit to medicine Diet: Carb consistent DVT prophylaxis: N/A GI prophylaxis: Pantoprazole Code status: Full ----- Plan discussed with attending physician Dr. Chairez and supervising resident Dr. Devin Preciado MD PGY-1 Internal Medicine Attending Provider Attestation/Addendum I have discussed and was present for the essential components of the history, physical examination, diagnosis, and treatment plan with the resident. I agree with the patient's care as documented by the resident and amended herein by me. Abhijeet Chairez DO. Although this document has been carefully reviewed, there may still be some phonetic and other typographical errors. These errors are purely grammatical due to imperfections in the software program and should not be construed in any way to compromise the substance of the patient's medical care during this visit. Continue meropenem for now, will reach out to [facility], transplant nephrology, would like to place a PICC line to get the patient out of the hospital on ertapenem but we will verify their recommendations
[2024-11-19] MEDS: PREGABALIN 50 MG CAPSULE 150 MG PO (21:12)
[2024-11-19] MEDS: DOCUSATE SOD 100 MG CAPSULE PO (21:12)
[2024-11-19] MEDS: TACROLIMUS 0.5 MG CAPSULE PO (22:57)
[2024-11-20] VITALS (16 sets, daily range): BP systolic 139–166; BP diastolic 78–94; PULSE 75–92; RESP 16–19; TEMP 35.9–36.4; O2SAT 95–99
--- NOTE | 2024-11-20 | XR_ITS ---
Examination: No successful venous access right arm for PICC line placement Ultrasound-guided needle placement right internal jugular vein. Triple lumen tunneled central line Fluoroscopy AP chest, portable, single view Exam date and time:November 20, 2024 0909 hours INDICATIONS: Need for long-term intravenous antibiotic therapy A timeout was completed verifying correct patient, procedure, site, positioning Informed consent provided Technique: The patient's site was prepped and draped in sterile fashion. Maximum Sterile Barrier Technique used including cap, mask, sterile gown, sterile gloves, and sterile full body drape. If ultrasound technique used: sterile gel and sterile probe covers. Hand Hygiene performed using proper scrub, soap and water, or alcohol-based hand rub. Site right portable apparatus utilized to confirm patency of the right internal jugular vein Utilizing ultrasonographic guidance successful 21-gauge needle puncture into the right internal jugular vein Ultrasound images recorded and stored. 5 cc 1% lidocaine administered for local anesthetic. Successful micropuncture with a 21-gauge needle is performed. 0.18 wire guide is then introduced into the SVC under fluoroscopic guidance. Subcutaneous tunnel formed in the upper anterior chest and triple-lumen tunneled dialysis catheter placed through a venous sheath into the superior vena cava in satisfactory position. Successful aspiration of blood and flushing with heparinized saline is then performed in the 2 venous limbs. The catheter sutured in place. Findings: Under fluoroscopy, the tip of the catheter is in good position in the vena cava. Portable chest x-ray, post line placement is ordered. Estimated blood loss 1 cc The patient tolerated the procedure well and was in stable and satisfactory condition at completion of the procedure Impression: Successful ultrasound-guided needle placement right internal jugular vein Successful placement tunneled central line in the right internal jugular vein, tip in the SVC satisfactory position Fluoroscopy 0.1 minute radiation dose 0.12 milligray. AP chest completion procedure demonstrates satisfactory position central line. May use central line.
--- NOTE | 2024-11-20 | XR_ITS ---
Examination: AP chest single view TECHNIQUE: AP portable sitting chest single view Date and time: November 20, 2024 1421 hours Comparison February 27, 2024 INDICATIONS: Shortness of breath leg swelling this week. FINDINGS: Mild heart failure Moderate enlargement cardiac contour Prominent vascular congestion with early edema at the lung bases IMPRESSION: Mild heart failure
--- NOTE | 2024-11-20 05:28 | PC.NURSE ---
Dr. Butler was made aware that pt is requesting to get diflucan pill at 8/9 am instead of the dose at 0145 am. will change the order.
[2024-11-20] MEDS: ONDANSETRON ODT 4 MG TABRAP PO (05:54)
[2024-11-20] MEDS: MEROPENEM INJ 1,000 MG in SODIUM CHLORIDE 0.9% (Popper) 50 ML 100 MG IV ×3 (05:54→21:06)
[2024-11-20] MEDS: FLUCONAZOLE 100 MG TABLET PO (05:54)
[2024-11-20 06:33] LABS: Basophils # (Auto) 0.0 Thou/mm3 (0.0-0.2); Basophils % (Auto) 1 % (0-2.5); Eosinophils # (Auto) 0.1 Thou/mm3 (0.0-0.5); Eosinophils % (Auto) 2 % (0-10); Hematocrit 53.2 % (36.0-46.0); Hemoglobin 17.4 g/dL (12.0-16.0); Immature Granulocytes Auto 0.02 Thou/mm3 (0.00-0.00); Lymphocytes # (Auto) 0.3 Thou/mm3 (1.0-4.8); Lymphocytes % (Auto) 4 % (10-50); Mean Corpuscular HGB Conc 32.7 g/dl (31.0-37.0); Mean Corpuscular Hemoglobin 31.4 pg (25.0-35.0); Mean Corpuscular Volume 96 fL (80-100); Monocytes # (Auto) 0.7 Thou/mm3 (0.0-0.8); Monocytes % (Auto) 12 % (0-12); Neutrophils # (Auto) 5.1 Thou/mm3 (1.8-7.7); Neutrophils % (Auto) 82 % (37-80); Nucleated Red Blood Cell # 0.00 Thou/mm3 (0.00-0.00); Nucleated Red Blood Cell % 0 /100 WBC (0); Platelet Count 195 Thou/mm3 (140-440); RDW Standard Deviation 45.5 fL (36.4-46.3); Red Blood Count 5.54 Miln/mm3 (4.00-5.20); White Blood Count 6.2 Thou/mm3 (3.6-11.0)
[2024-11-20 06:54] LABS: Anion Gap 10 (7-16); BUN/Creatinine Ratio 14 Ratio (12-20); Blood Urea Nitrogen 11 mg/dL (9-23); Calcium 10.0 mg/dL (8.3-10.6); Carbon Dioxide 26.4 mMol/L (20.0-31.0); Chloride 105 mMol/L (98-107); Creatinine (Component) 0.8 mg/dL (0.6-1.3); Estimated Creatinine Clearance 105.7 mL/min (>60); Glucose 95 mg/dL (74-106); Magnesium 1.7 mg/dL (1.6-2.6); Osmolality,Calculated 280 (275-295); Phosphorous 2.3 mg/dL (2.4-5.1); Potassium 3.7 mMol/L (3.4-5.1); Sodium 141 mMol/L (136-145); eGFR > 60 See Note
[2024-11-20 06:58] LABS: INR 1.0 (0.9-1.3); Partial Thromboplastin Time 23.8 Seconds (22.0-36.0); Prothrombin Time 10.9 Seconds (9.0-12.2)
[2024-11-20] MEDS: DULoxetine HCL 30 MG CAPSULE 60 MG PO (09:11)
[2024-11-20] MEDS: DOCUSATE SOD 100 MG CAPSULE PO (09:11)
[2024-11-20] MEDS: EZETIMIBE 10 MG TABLET PO (09:12)
[2024-11-20] MEDS: TACROLIMUS 1 MG CAPSULE (NON-FORMULARY) 2 MG PO (09:13)
[2024-11-20] MEDS: BuPROPion HCL XL 150 MG TABCR PO (09:13)
[2024-11-20] MEDS: MYCOPHENOLATE 250 MG CAPSULE (NON-FORMULARY) 750 MG PO ×2 (09:13→21:02)
[2024-11-20] MEDS: VALGANCICLOVIR 450 MG TABLET PO (09:14)
[2024-11-20] MEDS: PHOSPHA 250 NEUTRAL TABLET PO ×2 (09:14→17:46)
[2024-11-20] MEDS: DAPSONE 100 MG TABLET PO (09:15)
--- NOTE | 2024-11-20 10:19 | PD.RESDS ---
Planned Discharge Date 11/20/24 DS: Providers Provider Date of admission: 11/19/24 00:54 Primary care physician: Sofi Granados MD Admitting Provider: Gurdeep Ledbetter MD Attending Provider on Admission: Gurdeep Ledbetter MD Consults: 11/19/24 02:56 Referral [place]ablito Routine Comment: Referral Respiratory Therapy Routine Comment: 11/19/24 09:36 Consult to Infectious Diseases Stat Comment: MERROPENEM ORDERED PER PROTOCOL NEED ID CONSULT Consulting Provider: Shashank Gonslaez Attending Provider on DC: RESIDENT Donta Discharging Provider: RESIDENT Donta Hospital Course Hospital Course Hospital course: 77 M with PMHx CPAP 5L H2O with supplemental oxygen at home, hypertension, hyperlipidemia, type 2 diabetes mellitus, obesity, CHF, SP, CKD stage III who was BIBA from SNF due to slurred speech and left sided weakness admitted for stroke work up. ED Course Summary: In the ED he had elevated HR and blood pressure. Stroke work up was negative. ABG revealed hypercarbia. Patient started on 4L O2 nasal cannula. Hospital Course: Patient was seen by Neurology NIHSS: 2 with asterixis deemed most likely secondary to lyrica. Repeat ABG confirmed hypercarbia and patient deemed to be encephalopathic due to CO2 retention. Patient improved on CPAP with settings: IPAP: 14, EPAP: 6, FiO2:50% on 4-5 L nasal cannula. Family confirmed back to baseline. Patient encouraged to follow up with resistance welder to adjust vent settings. Discharge Instructions: #Acute encephalopathy #Stroke ruled out #Respiratory acidosis with metabolic alkalosis, in setting of #SP #PAH #Hx of HTN #HLD #Non insulin dependent type II Diabetes mellitus Patient's plan and care discussed with my attending, Dr. Chairez, and supervising residents John Beltran MD, and MD Miller Parrish MD Internal Medicine PGY-1 Time Spent with Patient Time attestation: Total time spent providing and/or coordinating discharge services: Exam Vital Signs Temp Pulse Resp BP Pulse Ox O2 Del Method 97.0 F 75 18 148/94 H 97 Room Air 11/20/24 08:00 11/20/24 10:05 11/20/24 10:05 11/20/24 08:00 11/20/24 10:05 11/20/24 10:05 Narrative Exam General: Well-appearing, alert, and oriented ?3; in no acute distress. HEENT: Normocephalic, atraumatic. PERRLA, EOMI. No scleral icterus or conjunctival injection. Oropharynx clear, mucous membranes moist. Neck: Supple, no lymphadenopathy, no JVD. Cardiac: Regular rate and rhythm; normal S1, S2; no murmurs, rubs, or gallops. Lungs: Clear to auscultation bilaterally; no wheezes, rales, or rhonchi. Non-labored respirations. Abdomen: Soft, non-tender, non-distended. No CVA tenderness bilaterally. No suprapubic tenderness. Bowel sounds present. Extremities: No peripheral edema; pulses 2+ bilaterally in all extremities. Skin: Warm, dry, intact; no rash or lesions. Neuro: Alert and oriented ?3; normal speech; no focal motor or sensory deficits. Psych: Cooperative, normal mood and affect. Discharge Plan Plan Patient condition on transfer: Stable Prescriptions/Referrals Prescriptions/Med Rec: No Action clonazepam 0.5 mg tablet 0.5 mg PO HS duloxetine 60 mg capsule,delayed release(DR/EC) 60 mg PO .AM Patient Comments: TAKE 1 CAPSULE BY MOUTH AT BEDTIME pregabalin [Lyrica] 150 mg Capsule 150 mg PO HS Gvoke HypoPen 2-Pack 1 mg/0.2 mL auto-injector 1 mg SUBCUT PRN PRN (Reason: Hypoglycemia) Patient Comments: INJECT 1MG SUBCUTANEOUS NEEDED FOR LOW BS 30 DAYS losartan 100 mg tablet 100 mg PO DAILY Patient Comments: TAKE 1 TABLET BY MOUTH EVERY DAY bupropion HCl 150 mg tablet extended release 24 hr 150 mg PO DAILY Patient Comments: TAKE 1 TABLET BY MOUTH EVERY DAY IN THE MORNING FOR 30 DAYS ondansetron HCl 4 mg tablet 4 mg PO PRN PRN (Reason: Nausea) Patient Comments: TAKE 1 TABLET BY MOUTH EVERY 8 HOURS NEEDED FOR NAUSEA tacrolimus 1 mg capsule 2 mg PO .AM fluconazole 100 mg tablet 100 mg PO Q24H Patient Comments: TAKE 1 TABLET BY MOUTH EVERY DAY valganciclovir 450 mg tablet 450 mg PO DAILY Patient Comments: TAKE 1 TABLET BY MOUTH EVERY DAY mycophenolate mofetil 250 mg capsule 750 mg PO Q12H Patient Comments: TAKE 2 CAPSULES BY MOUTH TWICE A DAY dapsone 100 mg tablet 100 mg PO DAILY Patient Comments: TAKE 1 TABLET BY MOUTH EVERY DAY pantoprazole 40 mg tablet,delayed release (DR/EC) 40 mg PO DAILY nifedipine 90 mg tablet extended release 24hr 90 mg PO PRN Patient Comments: TAKE 1 TABLET BY MOUTH TWICE A DAY docusate sodium 100 mg capsule 100 mg PO BID Phospha 250 Neutral 250 mg tablet 2 tab PO BID Patient Comments: TAKE 1 TABLET BY MOUTH TWICE A DAY prednisone 5 mg tablet 5 mg PO DAILY Patient Comments: TAKE 1 TABLET BY MOUTH DAILY WITH FOOD ezetimibe 10 mg tablet 10 mg PO QDAY aspirin [Adult Low Dose Aspirin] 81 mg tablet,delayed release (DR/EC) 81 mg PO QDAY tacrolimus [Prograf] 0.5 mg capsule 1.5 mg PO HS Patient Comments: take 1.5 mg po every night Referrals: Sofi Granados MD [Primary Care Provider] - Patient/Caregiver Discharge Instructions Print Language: Azeri
--- NOTE | 2024-11-20 11:27 | PC.NURSE ---
pt spoke with Dr buchanan: taking protonix at night instead of morning, he said he would change it
--- NOTE | 2024-11-20 11:58 | PC.CC ---
Addendum entered by Yissel Jc RN 11/20/24 18:20: Informed Dr. Chairez, [facility] can see the pt tomorrow. Pt can be discharged tomorrow after abx dose. [facility] hasn't confirmed the delivery yet. Addendum entered by Yissel Jc RN 11/20/24 18:15: [facility] the pt [facility], booked [facility]. Addendum entered by Yissel Jc RN 11/20/24 18:03: Spoke to pt and informed [facility] is able to accept and they wants to see her before 1400 tomorrow. Addendum entered by Yissel Jc RN 11/20/24 18:03: [facility] at [facility] stated they are able to see the pt tomorrow. But before 1400. Their nurses don't go out to admit pt after 1400. Addendum entered by Yissel Jc RN 11/20/24 17:18: sent referral to [facility] again. Addendum entered by Yissel Jc RN 11/20/24 17:18: I informed [facility] , pt doesn't want to wait till Monday and therefore unbooking the referral. Addendum entered by Yissel Jc RN 11/20/24 17:13: I asked [facility] if there is any out of pocket cost for abx. [facility] responded Looks as though patient has met their annual deductible and out of pocket max so insurance should cover at 100%. We will send an advisory letter in the event that there is portion due. Addendum entered by Yissel Jc RN 11/20/24 17:12: Pt doesn't want to wait until Monday and request that she is willing to pay out of pocket for the visits for . She prefers [facility]. I called [facility], spoke to Mylene. She stated they can accept the pt and pt doesn't have to pay anything out of pocket. But they will be able to cover only 6 visits or less. I informed her pt only need 9 days of abx which will be less than 6 visits. [facility] stated to find out from [facility] if there will be any out of pocket cost for abx. Addendum entered by Yissel Jc RN 11/20/24 15:40: Informed [facility] Stephanie about soonest SOC available is 11/23/24. Addendum entered by Yissel Jc RN 11/20/24 15:39: [facility]. [facility]ed [facility]. Addendum entered by Yissel Jc RN 11/20/24 15:39: [facility] accepted the pt. Soonest SOC is Monday11/23/24. [facility]ed [facility]. Addendum entered by Yissel Jc RN 11/20/24 14:38: called [facility] , spoke to Perla. She stated they no longer take pt insurance which is [facility] PPO. There are total 11 HH agencies declined the pt. Addendum entered by Yissel Jc RN 11/20/24 12:55: HH referral sent to other HH agencies. Addendum entered by Yissel Jc RN 11/20/24 12:55: [facility] declined the referral saying insurance is out of network. Original Note: pt needs Home health for IV abx. Per SS notes pt preference is [facility]. [facility] referral sent to [facility] and [facility] on [address]. Awaiting responses. Pending start of care date.
[2024-11-20] MEDS: NAPH,KPH MBDB 1 PACKET (1.5 GM) 2 PACKET PO (12:06)
--- NOTE | 2024-11-20 12:26 | PC.NURSE ---
consulted dr weiner regarding order for tunneled central line placement, patient took aspirin 81mg yesterday, review coagulation labs, ok to proceed with procedure.
[2024-11-20] MEDS: fentaNYL CIT INJ 50 mCg/ML AMP 2ML IVP (13:15)
[2024-11-20] MEDS: LIDOCAINE INJ PF 1% 30 ML VIAL 5 ML INFL (13:16)
[2024-11-20] MEDS: HEPARIN SOD LOCK SYR 100 UNIT/ML 500 UNIT STFIELD (13:16)
--- NOTE | 2024-11-20 13:44 | PC.NURSE ---
1344 patient is awake, alert, breathing unlabored, s/p tunneled central line insertion to right IJ, no bleeding noted. report given to Meghan MYERS, patient transferred to room 368.
--- NOTE | 2024-11-20 13:47 | ESPR_ITS ---
Subjective Subjective Interval history: unable to see pt. prior txp noted. presumably txp team where she was transplanted does not want to take her back.ua with just 5 wbc. cxr last nearly a year ago in january. pt out of room so visit limited on that basis. Exam Vital Signs Temp Pulse Resp BP Pulse Ox O2 Del Method O2 Flow Rate 97.5 F 87 16 160/85 H 96 Nasal Cannula 3 11/20/24 12:00 11/20/24 13:35 11/20/24 13:35 11/20/24 13:35 11/20/24 13:35 11/20/24 13:35 11/20/24 13:35 Narrative Exam unable to see as out of room. will see monday Objective - Internal Medicine Labs 11/20/24 05:13 11/20/24 05:13 Labs: Laboratory Results - last 24 hr 11/20/24 05:13 WBC 6.2 RBC 5.54 H Hgb 17.4 H Hct 53.2 H MCV 96 MCH 31.4 MCHC 32.7 RDW Std Deviation 45.5 Plt Count 195 D Neut % (Auto) 82 H Lymph % (Auto) 4 L [place] % (Auto) 12 Eos % (Auto) 2 Baso % (Auto) 1 Neut # (Auto) 5.1 Lymph # (Auto) 0.3 L [place] # (Auto) 0.7 Eos # (Auto) 0.1 Baso # (Auto) 0.0 Immature Gran # (Auto) 0.02 H Absolute Nucleated RBC 0.00 Immature Gran % 0 Nucleated RBC % 0 PT 10.9 INR 1.0 APTT 23.8 Sodium 141 Potassium 3.7 D Chloride 105 Carbon Dioxide 26.4 Anion Gap 10 BUN 11 Creatinine 0.8 Estim Creat Clear Calc 105.7 eGFR > 60 BUN/Creatinine Ratio 14 Glucose 95 D Calculated Osmolality 280 Calcium 10.0 Phosphorus 2.3 L Magnesium 1.7 Assessment & Plan A&P Narrative prior txp. on immunosuppression usually the txp team wants first dibs on txp pts so you may want to document the refusal of the txp team to take her in transfer unless she is transferred. will see otherwise on monday late am if still here . no active id issues noted on review of record. role of abx in doubt and it looks like merrem was stopped. looks ok as no fever and neg cx and neg ua Time Spent With Patient Time: Total time spent is greater than 50% in coordination of care (as documented) at patient's floor/unit and/or counseling patient:
--- NOTE | 2024-11-20 14:27 | PC.SS ---
darrell note: Unable to get a picc line. Patient to have a central line then d/c home with services for i.v. antibiotics for 10 days.
--- NOTE | 2024-11-20 16:30 | ESCONSULT_ITS ---
RE: LUCRETIA PINA : 1975 DATE OF CONSULTATION: 11/19/2024 REFERRING PHYSICIAN: Gurdeep Ledbetter MD. REASON FOR CONSULTATION: Acute illness. HISTORY OF PRESENT ILLNESS: The patient was admitted for presumptive UTI. She has a transplant. I am not sure what organ, but it seems to be working well. It looks like it may be the kidneys. She is on immunosuppression and has been afebrile. Empiric antibiotics were initiated by an ICU presumably with meropenem, but all cultures have been negative. The patient is discharged at this time or may go home. That is okay or she may be transferred to a transplant center, which is also acceptable. Usually transplant patients are transferred. Her medical problems are as listed in the record. She is unable to offer any history at this time. The patient's surgical history is similar. Allergies are similar. Family and social history are unchanged from prior records. Her exam is limited because she is out of the room. I will see her again on Monday if she remains. If she goes home or to her txp center, I have no objection. It does not look like there are any positive cultures of any kind. I will check on her again on Monday if she remains. DT: 13:58:06 TT: 16:21:00 Ref: [id number] - TID: [id number] MTDD
--- NOTE | 2024-11-20 18:49 | ESPR_ITS ---
<Statement entered by Josse Marr MD - 11/21/24 13:47> I have reviewed the note and agree with the resident's assessment & plan with exceptions as below. I have personally reviewed labs, imaging, home meds/prior records, examined the patient, formulated and discussed management plan with the IM team. Patient examined at bedside today. No acute overnight events. Patient continues to improve, pending authorization with home health for IV antibiotics as she will need ertapenem and this will be dosed once a day, will continue with meropenem while inpatient. Repeat hematology and chemistry in AM. Anticipate discharge within the next 24 to 48 hours pending authorization. Josse Marr, PGY-2 Internal Medicine Documentation for date of: 11/20/24 Subjective Subjective Interval history: Patient seen and examined bedside. Due to unfortunate circumstances insurances will not be able to OK IV medication until Monday possibly. PICC line placement not possible either, so tunneled IV catheter was placed instead. Today she tells me she gets nauseas from the protonix and would like it to be distributed at night. She denies SOB, chest pain, fevers, chills night, sweats. Exam Vital Signs Temp Pulse Resp BP Pulse Ox O2 Del Method O2 Flow Rate 97.1 F 80 17 146/89 H 97 Nasal Cannula 3 11/20/24 16:00 11/20/24 16:00 11/20/24 16:11/20/24 16:00 11/20/24 16:00 11/20/24 16:11/20/24 16:00 Narrative Exam General: Well-appearing, alert, and oriented ?3; in no acute distress. HEENT: Normocephalic, atraumatic. PERRLA, EOMI. No scleral icterus or conjunctival injection. Oropharynx clear, mucous membranes moist. Neck: Supple, no lymphadenopathy, no JVD. Cardiac: Regular rate and rhythm; normal S1, S2; no murmurs, rubs, or gallops. Lungs: Clear to auscultation bilaterally; no wheezes, rales, or rhonchi. Non- labored respirations. Abdomen: Soft, non-tender, non-distended. No CVA tenderness bilaterally. No suprapubic tenderness. Bowel sounds present. Extremities: No peripheral edema; pulses 2+ bilaterally in all extremities. Skin: Warm, dry, intact; no rash or lesions. Neuro: Alert and oriented ?3; normal speech; no focal motor or sensory deficits. Psych: Cooperative, normal mood and affect. Objective Labs 11/21/24 05:20 11/21/24 05:20 Labs: Laboratory Results - last 24 hr 11/20/24 05:13 WBC 6.2 RBC 5.54 H Hgb 17.4 H Hct 53.2 H MCV 96 MCH 31.4 MCHC 32.7 RDW Std Deviation 45.5 Plt Count 195 D Neut % (Auto) 82 H Lymph % (Auto) 4 L [place] % (Auto) 12 Eos % (Auto) 2 Baso % (Auto) 1 Neut # (Auto) 5.1 Lymph # (Auto) 0.3 L [place] # (Auto) 0.7 Eos # (Auto) 0.1 Baso # (Auto) 0.0 Immature Gran # (Auto) 0.02 H Absolute Nucleated RBC 0.00 Immature Gran % 0 Nucleated RBC % 0 PT 10.9 INR 1.0 APTT 23.8 Sodium 141 Potassium 3.7 D Chloride 105 Carbon Dioxide 26.4 Anion Gap 10 BUN 11 Creatinine 0.8 Estim Creat Clear Calc 105.7 eGFR > 60 BUN/Creatinine Ratio 14 Glucose 95 D Calculated Osmolality 280 Calcium 10.0 Phosphorus 2.3 L Magnesium 1.7 Quality Measures Quality Measures VTE prophylaxis Assessment & Plan Assessment Current Active Medications: Generic Name Dose Route Start Last Admin Trade Name Freq PRN Reason Stop Dose Admin Acetaminophen 650 mg 11/19/24 01:01 11/19/24 07:03 Acetaminophen 325 Mg Tablet PO 12/19/24 01:00 650 mg Q6H PRN Administration Fever >100.4 Aspirin 81 mg 11/19/24 09:00 11/20/24 11:26 Aspirin Ec 81 Mg Tabec PO 12/19/24 08:59 Not Given QDAY CRISTIANE Bupropion HCl 150 mg 11/19/24 09:00 11/20/24 09:13 Bupropion Hcl Xl 150 Mg Tabcr PO 12/19/24 08:59 150 mg DAILY CRISTIANE Administration Clonazepam 0.5 mg 11/19/24 21:00 11/19/24 21:12 Clonazepam 0.5 Mg Tablet PO 11/24/24 20:59 0.5 mg HS CRISTIANE Administration Valganciclovir 450 0 ea 11/19/24 11:00 11/20/24 09:14 Mg Tablet PO 12/19/24 10:59 1 tablet QDAY CRISTIANE Administration Dapsone 100 Mg 0 ea 11/19/24 10:00 11/20/24 09:15 Tablet PO 12/19/24 09:59 1 tablet QDAY CRISTIANE Administration Phospha 250 Neutral 0 ea 11/19/24 12:00 11/20/24 17:46 Tablet PO 12/19/24 11:59 2 tablet BIDWM CRISTIANE Administration Tacrolimus 0.5 Mg 0 ea 11/19/24 22:45 11/19/24 22:57 Capsule PO 12/19/24 22:44 3 capsule HS CRISTIANE Administration Dextrose 25 ml 11/19/24 07:53 Dextrose 50%-Water Inj 50 Ml Syringe IV 12/19/24 07:52 Q15MIN PRN BG 50-70 responsive npo pt Dextrose 50 ml 11/19/24 07:53 Dextrose 50%-Water Inj 50 Ml Syringe IV 12/19/24 07:52 Q15MIN PRN BG <50 OR BG <70 & pt unresponsive Docusate Sodium 100 mg 11/19/24 09:00 11/20/24 09:11 Docusate Sod 100 Mg Capsule PO 12/19/24 08:59 100 mg BID CRISTIANE Administration Protocol Duloxetine HCl 60 mg 11/19/24 09:00 11/20/24 09:11 Duloxetine Hcl 30 Mg Capsule PO 12/19/24 08:59 60 mg QDAY CRISTIANE Administration Ezetimibe 10 mg 11/19/24 09:00 11/20/24 09:12 Ezetimibe 10 Mg Tablet PO 12/19/24 08:59 10 mg QDAY CRISTIANE Administration Fluconazole 100 mg 11/20/24 05:27 11/20/24 05:54 Fluconazole 100 Mg Tablet PO 11/26/24 07:59 100 mg Q24H CRISTIANE Administration Glucagon 1 mg 11/19/24 07:53 Glucagon Inj 1 Mg Vial IM Q15MIN PRN BG <70, and no IV access Meropenem 1,000 mg/ Sodium 50 mls @ 100 mls/hr 11/19/24 07:45 11/20/24 14:47 Chloride IV 11/26/24 07:44 100 mls/hr Q8HR CRISTIANE Administration Insulin Human Lispro 0 unit 11/19/24 11:30 11/20/24 17:46 Insulin Lispro (Admelog) 1 Unit/0.01 Ml Unit SC 12/19/24 11:29 Not Given AC CRISTIANE Protocol Mycophenolate Mofetil 750 mg 11/19/24 09:00 11/20/24 09:13 Mycophenolate 250 Mg Capsule (Non-Formulary) PO 12/19/24 01:44 750 mg Q12HR CRISTIANE Administration Ondansetron HCl 4 mg 11/19/24 03:12 11/20/24 05:54 Ondansetron Odt 4 Mg Tabrap PO 12/19/24 01:38 4 mg Q6HR PRN Administration Nausea Protocol Pantoprazole Sodium 40 mg 11/20/24 21:00 Pantoprazole 40 Mg Tablet PO 12/20/24 20:59 HS CRISTIANE Prednisone 5 mg 11/19/24 09:00 11/20/24 09:11 Prednisone 5 Mg Tablet PO 12/19/24 08:59 5 mg DAILY CRISTIANE Administration Pregabalin 150 mg 11/19/24 21:00 11/19/24 21:12 Pregabalin 50 Mg Capsule PO 12/19/24 20:59 150 mg HS CRISTIANE Administration Tacrolimus 2 mg 11/19/24 09:00 11/20/24 09:13 Tacrolimus 1 Mg Capsule (Non-Formulary) PO 12/19/24 08:59 2 mg QDAY CRISTIANE Administration Tacrolimus 1.5 mg 11/19/24 10:45 Tacrolimus 0.5 Mg Capsule (Non-Formulary) PO 12/19/24 10:44 QPM CRISTIANE Tacrolimus 0.5 mg 11/20/24 21:00 Tacrolimus 0.5 Mg Capsule (Non-Formulary) PO 11/20/24 21:01 X1 ONE Tacrolimus 1 mg 11/20/24 21:00 Tacrolimus 1 Mg Capsule (Non-Formulary) PO 11/20/24 21:01 X1 ONE Plan 48F with type 1 DM s/p kidney transplant (08/14/24) presenting for IV antibiotics per transplant team for resistant UTI, PICC line ok per transplant center, on meropenem; also had hyperglycemia from missed insulin, now improved. Awaiting discharge pending insurance approval for IV antibiotics. # Urinary Tract Infection Kidney transplant patient with culture-confirmed nitrofurantoin-resistant UTI, afebrile, hemodynamically stable, minimal urinary symptoms, UA with mild pyuria; PICC avoided due to infection risk in early post-transplant period. [facility] transplant team recommended ertapenem for 10 days, but ertapenem is not available at this facility, initiating meropenem as alternative. [facility] contacted and ok with our plan. Plan: * Meropenem 1 g IV q8h (start: 11/19- ) in place of ertapenem * Anticipate 10-day course; confirmed duration with [facility] transplant ID * Monitor for fever, flank pain, dysuria, or worsening labs * Request [facility] records for urine culture, sensitivities, and ID report instead of repeating urine culture here * PICC line ordered --> changed to tunneled IV catheter (unable to find vein for PICC line) # s/p Kidney Transplant 08/14/24 transplant for ESRD from type 1 DM; no prior rejection, creatinine slightly above baseline, on triple immunosuppression with antiviral, antifungal, and PJP prophylaxis; fully adherent by report. Plan: * Continue tacrolimus, mycophenolate, prednisone * Continue valganciclovir, fluconazole, dapsone * Avoid nephrotoxic medications * Notify [facility] receiving coordinator - completed * Daily BMP # Type 1 Diabetes Mellitus with Hyperglycemia Long-standing type 1 DM on insulin pump; hyperglycemia to 659 due to missed insulin overnight from Dexcom charging; improved to low 300s with insulin/fluids; no symptoms or labs consistent with DKA. Plan: * Resume insulin pump per home settings * BG q6hr * ISS * Check b-hydroxybutyrate to definitively exclude ketosis # Hyponatremia Mild, asymptomatic hyponatremia (Na 128); likely pseudohyponatremia without true hypotonic state. Plan: * Repeat BMP once BG normalized * Daily BMP monitoring # Orthostatic Hypotension Chronic issue post-transplant; BP medications (nifedipine, losartan) held unless SBP elevated; no recent syncope. Plan: * Continue to hold nifedipine/losartan unless SBP elevated * Orthostatic vitals daily Health Maintenance: Dispo: Admit to medicine Diet: Carb consistent DVT prophylaxis: N/A GI prophylaxis: Pantoprazole Code status: Full ----- Plan discussed with attending physician Dr. Chairez and supervising resident Dr. Devin Marr. Miller Preciado MD PGY-1 Internal Medicine Attending Provider Attestation/Addendum I have discussed and was present for the essential components of the history, physical examination, diagnosis, and treatment plan with the resident. I agree with the patient's care as documented by the resident and amended herein by me. Abhijeet Chairez DO. Although this document has been carefully reviewed, there may still be some phonetic and other typographical errors. These errors are purely grammatical due to imperfections in the software program and should not be construed in any way to compromise the substance of the patient's medical care during this visit. Continue meropenem for now, will reach out to Kaye, transplant nephrology, would like to place a PICC line to get the patient out of the hospital on ertapenem but we will verify their recommendations
[2024-11-20] MEDS: PANTOPRAZOLE 40 MG TABLET PO (21:02)
[2024-11-20] MEDS: PREGABALIN 50 MG CAPSULE 150 MG PO (21:02)
[2024-11-20] MEDS: TACROLIMUS 0.5 MG CAPSULE (NON-FORMULARY) PO (21:05)
[2024-11-20] MEDS: TACROLIMUS 1 MG CAPSULE (NON-FORMULARY) PO (21:06)
[2024-11-21] VITALS: BP 151/83; PULSE 79; RESP 17; TEMP 35.9; O2SAT 95
[2024-11-21 04:00] VITALS: BP 139/84; PULSE 74; RESP 16; TEMP 35.9; O2SAT 95
[2024-11-21] MEDS: MEROPENEM INJ 1,000 MG in SODIUM CHLORIDE 0.9% (Popper) 50 ML 100 MG IV (05:48)
[2024-11-21] MEDS: FLUCONAZOLE 100 MG TABLET PO (05:48)
[2024-11-21 05:57] LABS: Basophils # (Auto) 0.0 Thou/mm3 (0.0-0.2); Basophils % (Auto) 0 % (0-2.5); Eosinophils # (Auto) 0.1 Thou/mm3 (0.0-0.5); Eosinophils % (Auto) 2 % (0-10); Hematocrit 53.6 % (36.0-46.0); Hemoglobin 17.3 g/dL (12.0-16.0); Immature Granulocytes Auto 0.03 Thou/mm3 (0.00-0.00); Lymphocytes # (Auto) 0.2 Thou/mm3 (1.0-4.8); Lymphocytes % (Auto) 3 % (10-50); Mean Corpuscular HGB Conc 32.3 g/dl (31.0-37.0); Mean Corpuscular Hemoglobin 31.4 pg (25.0-35.0); Mean Corpuscular Volume 97 fL (80-100); Monocytes # (Auto) 0.9 Thou/mm3 (0.0-0.8); Monocytes % (Auto) 13 % (0-12); Neutrophils # (Auto) 5.4 Thou/mm3 (1.8-7.7); Neutrophils % (Auto) 81 % (37-80); Nucleated Red Blood Cell # 0.00 Thou/mm3 (0.00-0.00); Nucleated Red Blood Cell % 0 /100 WBC (0); Platelet Count 176 Thou/mm3 (140-440); RDW Standard Deviation 46.6 fL (36.4-46.3); Red Blood Count 5.51 Miln/mm3 (4.00-5.20); White Blood Count 6.7 Thou/mm3 (3.6-11.0)
[2024-11-21 06:28] LABS: Anion Gap 8 (7-16); BUN/Creatinine Ratio 12 Ratio (12-20); Blood Urea Nitrogen 11 mg/dL (9-23); Calcium 9.6 mg/dL (8.3-10.6); Carbon Dioxide 26.1 mMol/L (20.0-31.0); Chloride 107 mMol/L (98-107); Creatinine (Component) 0.9 mg/dL (0.6-1.3); Estimated Creatinine Clearance 93.0 mL/min (>60); Glucose 89 mg/dL (74-106); Magnesium 1.8 mg/dL (1.6-2.6); Osmolality,Calculated 279 (275-295); Phosphorous 2.8 mg/dL (2.4-5.1); Potassium 3.9 mMol/L (3.4-5.1); Sodium 141 mMol/L (136-145); eGFR > 60 See Note
[2024-11-21 08:00] VITALS: BP 151/91; PULSE 80; RESP 18; TEMP 36.1; O2SAT 97
--- NOTE | 2024-11-21 09:14 | ESDS_ITS ---
<Statement entered by Josse Marr MD - 11/21/24 14:21> I have reviewed the note and agree with the resident's assessment & plan with exceptions as below. I have personally reviewed labs, imaging, home meds/prior records, examined the patient, formulated and discussed management plan with the IM team. Patient examined at bedside today. No acute overnight events. Patient continues to improve, and will be discharged with ertapenem home health IV antibiotics. Pt was then discharged with home health IV Ertapenem as she is to complete 10 days of tx (stop date of 11/28). Patient was then discharged with the following instructions listed below. Josse Marr, PGY-2 Internal Medicine Planned Discharge Date 11/21/24 DS: Providers Provider Date of admission: 11/19/24 00:54 Primary care physician: Sofi Granados MD Admitting Provider: Gurdeep Ledbetter MD Attending Provider on Admission: Gurdeep Ledbetter MD Consults: 11/19/24 02:56 Referral Cascade Routine Comment: Referral Respiratory Therapy Routine Comment: 11/19/24 09:36 Consult to Infectious Diseases Stat Comment: MERROPENEM ORDERED PER PROTOCOL NEED ID CONSULT Consulting Provider: Shashank Gonsalez Attending Provider on DC: Kartik Chairez DO Discharging Provider: Kartik Chairez DO DS: Diagnosis Problem List Completed Was Problem List Reviewed/Reconciled?: Yes Hospital Course Hospital Course Hospital course: 48F with type 1 DM s/p kidney transplant (08/14/24) presenting for IV antibiotics per transplant team for resistant UTI. In the ED f/t/h hyperglycemia in (BG 659) due to missed insulin overnight, she gave herself 13 units before arrival. BG improved to low 300s with fluids and insulin. In the hospital the transplant center was contacted and OK'd PICC line placement, use of meropenem, and confirmed her cultures and sensitivities. She managed her diabetes with CGM and insulin pump and ISS and we continued her home meds of immunosuppressants. A tunneled IV catheter was placed due to inability to find veins for PICC line. Pt was then discharged with home health IV Ertapenem as she is to complete 10 days of tx (stop date of 11/28). Discharge Instructions: Follow-up with your PCP within 1 week Follow up with your marbleizing machine tender Continue Take your medicines as prescribed Return to ED if your symptoms worsen or return Rickey [phone] # Urinary Tract Infection # s/p Kidney Transplant # Type 1 Diabetes Mellitus with Hyperglycemia # Hyponatremia # Orthostatic Hypotension Patient's plan and care discussed with my attending, Dr. Chairez, and supervising residents John Beltran MD, and MD Miller Parrish MD Internal Medicine PGY-1 Time Spent with Patient Time attestation: Total time spent providing and/or coordinating discharge services: Time spent: Greater than 30 minutes Home Health Home Health Referral Orders: 11/20/24 11:35 Home Health Referral Routine Reason For Exam: IV Abx Home-Bound The patient must either because of illness or injury, need the aid of supportive devices such as crutches, canes, wheelchairs, and walkers; the use of special transportation; or the assistance of another person in order to leave their place of residence; OR have a condition such that leaving his or her home is medically contraindicated. In addition, the patient also meets the following criteria: patient is normally unable to leave the home and leaving home requires considerable taxing effort. Addendum to Home Health Certification Practitioner's Certification: I certify that the patient has been under my care in the hospital and the care of attending physician (see below). We had a vuqe-ow-[id number] encounter on (see date below). My clinical findings indicate that the patient is home bound per the above criteria and the Home Health Services noted in these orders are medically necessary. The primary reason for the [id number]-bm-[id number] encounter is related to the fact that the patient requires home health services. Date Certifying Oskc-ct-Tocw Physician Encounter: 11/19/24 Physician's Name who will Assume Oversight for Services: Sofi Granados Physician's Phone No.who will Assume Oversight for Service: CHIEF DIGITAL MEDIA OFFICER - Community Resources: No PT to Evaluate: No PT to evaluate and provide a treatmnet plan to increase patient's mobility and strength. Wound Care: No IV Therapy: Yes IV Medication: Ertapenem IV Dose: 1Gm IV Frequency: Daily IV Stop Date: 11/29/24 Discontinue PICC Line Once Treatment Complete: No RN Safety Evaluation: Yes RN to evaluate and create a plan of care that will produce positive outcomes. Palliative Treatment: No Palliative treatment and evaluate the need for hospice. Home Health Aide - Personal Care: No Home Health Aide to assist with any ADL's. Exam Vital Signs Temp Pulse Resp BP Pulse Ox O2 Del Method O2 Flow Rate 97.0 F 80 18 151/91 H 97 Room Air 3 11/21/24 08:00 11/21/24 08:00 11/21/24 08:00 11/21/24 08:00 11/21/24 08:00 11/21/24 08:00 11/20/24 16:00 Narrative Exam General: Well-appearing, alert, and oriented ?3; in no acute distress. HEENT: Normocephalic, atraumatic. PERRLA, EOMI. No scleral icterus or conjunctival injection. Oropharynx clear, mucous membranes moist. Neck: Supple, no lymphadenopathy, no JVD. Cardiac: Regular rate and rhythm; normal S1, S2; no murmurs, rubs, or gallops. Lungs: Clear to auscultation bilaterally; no wheezes, rales, or rhonchi. Non- labored respirations. Abdomen: Soft, non-tender, non-distended. No CVA tenderness bilaterally. No suprapubic tenderness. Bowel sounds present. Extremities: No peripheral edema; pulses 2+ bilaterally in all extremities. Skin: Warm, dry, intact; no rash or lesions. Neuro: Alert and oriented ?3; normal speech; no focal motor or sensory deficits. Psych: Cooperative, normal mood and affect. Discharge Plan Plan Patient Disposition: Home w/HOME HEALTH Patient condition on transfer: Stable Care Plan Goals: Discharge instructions Follow-up with your PCP within 1 week, primary care physician can arrange removal of the tunneled central venous catheter. Follow up with your marbleizing machine tender Continue Take your medicines as prescribed Return to ED if your symptoms worsen or return Rickey [phone] Prescriptions/Referrals Prescriptions/Med Rec: Continued clonazepam 0.5 mg tablet 0.5 mg PO HS duloxetine 60 mg capsule,delayed release(DR/EC) 60 mg PO .AM Patient Comments: TAKE 1 CAPSULE BY MOUTH AT BEDTIME pregabalin [Lyrica] 150 mg Capsule 150 mg PO HS Gvoke HypoPen 2-Pack 1 mg/0.2 mL auto-injector 1 mg SUBCUT PRN PRN (Reason: Hypoglycemia) Patient Comments: INJECT 1MG SUBCUTANEOUS NEEDED FOR LOW BS 30 DAYS bupropion HCl 150 mg tablet extended release 24 hr 150 mg PO DAILY Patient Comments: TAKE 1 TABLET BY MOUTH EVERY DAY IN THE MORNING FOR 30 DAYS ondansetron HCl 4 mg tablet 4 mg PO PRN PRN (Reason: Nausea) Patient Comments: TAKE 1 TABLET BY MOUTH EVERY 8 HOURS NEEDED FOR NAUSEA tacrolimus 1 mg capsule 2 mg PO .AM fluconazole 100 mg tablet 100 mg PO Q24H Patient Comments: TAKE 1 TABLET BY MOUTH EVERY DAY valganciclovir 450 mg tablet 450 mg PO DAILY Patient Comments: TAKE 1 TABLET BY MOUTH EVERY DAY mycophenolate mofetil 250 mg capsule 750 mg PO Q12H Patient Comments: TAKE 2 CAPSULES BY MOUTH TWICE A DAY dapsone 100 mg tablet 100 mg PO DAILY Patient Comments: TAKE 1 TABLET BY MOUTH EVERY DAY pantoprazole 40 mg tablet,delayed release (DR/EC) 40 mg PO DAILY nifedipine 90 mg tablet extended release 24hr 90 mg PO PRN Patient Comments: TAKE 1 TABLET BY MOUTH TWICE A DAY docusate sodium 100 mg capsule 100 mg PO BID Phospha 250 Neutral 250 mg tablet 2 tab PO BID Patient Comments: TAKE 1 TABLET BY MOUTH TWICE A DAY prednisone 5 mg tablet 5 mg PO DAILY Patient Comments: TAKE 1 TABLET BY MOUTH DAILY WITH FOOD ezetimibe 10 mg tablet 10 mg PO QDAY aspirin [Adult Low Dose Aspirin] 81 mg tablet,delayed release (DR/EC) 81 mg PO QDAY tacrolimus [Prograf] 0.5 mg capsule 1.5 mg PO HS Patient Comments: take 1.5 mg po every night Held losartan 100 mg tablet 100 mg PO DAILY Hold Instructions: resume with pcp Patient Comments: TAKE 1 TABLET BY MOUTH EVERY DAY Referrals: Sofi Granados MD [Primary Care Provider] - Patient/Caregiver Discharge Instructions Other Discharge Activity Instructions:: Follow-up with your PCP within 1 week Follow up with your marbleizing machine tender Continue Take your medicines as prescribed Return to ED if your symptoms worsen or return Rickey [phone] Education Materials: Urinary Tract Infections in Women Print Language: [place]ese Stand Alone Forms: Cynthia Award Info., Patient Portal Info Letter Discharge Order Discharge Orders: Discharge (Routine); Ordered 08/14/25 Ordered By: Zade Kurdieh Quality Discharge Quality Measures VTE prophylaxis Attestestation MD Attestation I have discussed and was present for the essential components of the discharge history, physical examination, diagnosis, and discharge treatment plan with the resident. I agree with the patient's discharge care as documented by the resident and amended herein by me. Abhijeet Chairez, DO. The patient understood all discharge instructions, all questions were answered satisfactorily. The patient was instructed to return to the Emergency Department is symptoms worsened or persisted. Patient will be discharged on ertapenem 1 g daily until 29 November 2024 as recommended by her transplant centers at [facility]. Fortunately we did not receive the final report of cultures from [facility] by time of discharge however it was believed to be ESBL E. coli which was MDRO. We did attempt PICC line prior to discharge however unable to be performed due to small vasculature, hence patient was discharged with tunneled central line which she will have to have removed after her course of antibiotics.. The patient was stable, afebrile, tolerating p.o. intake and ambulatory at time of discharge home with home health for IV antibiotics. Patient will need to follow-up with her primary care physician and arrange removal of the line at the end of her antibiotic course. Although this document has been carefully reviewed, there may still be some phonetic and other typographical errors. These errors are purely grammatical due to imperfections in the software program and should not be construed in any way to compromise the substance of the patient's medical care during this visit.
[2024-11-21] MEDS: EZETIMIBE 10 MG TABLET PO (09:16)
[2024-11-21] MEDS: TACROLIMUS 1 MG CAPSULE (NON-FORMULARY) 2 MG PO (09:17)
[2024-11-21] MEDS: DULoxetine HCL 30 MG CAPSULE 60 MG PO (09:17)
[2024-11-21] MEDS: BuPROPion HCL XL 150 MG TABCR PO (09:17)
[2024-11-21] MEDS: ASPIRIN EC 81 MG TABEC PO (09:17)
[2024-11-21] MEDS: VALGANCICLOVIR 450 MG TABLET PO (09:18)
[2024-11-21] MEDS: MYCOPHENOLATE 250 MG CAPSULE (NON-FORMULARY) 750 MG PO (09:18)
[2024-11-21] MEDS: PHOSPHA 250 NEUTRAL TABLET PO (09:19)
[2024-11-21] MEDS: DAPSONE 100 MG TABLET PO (09:20)
--- NOTE | 2024-11-21 09:39 | PC.CC ---
Addendum entered by Brianna Kenyon RN 11/21/24 09:58: Informed bedside nurse Meghan of times. Addendum entered by Brianna Kenyon RN 11/21/24 09:47: informed Meghan of dc time to coordinate HH and ICS. DR. Chairez called me and stated he is entering DC orders now. Called and spoke to Gloria at [facility], she was told by Nicolasa at [facility] that meds will be delivered by 1pm and a HH nurse will be out about the same time. Original Note: Vick segura/ MISAEL, meds will be delivered at 130 pm today. Spoke to Meghan bedside nurse
[2024-11-26 06:26] LABS: Tacrolimus,highly sensitive* 11.7 mcg/L (5.0-20.0)
== END 2024-11-21 10:52 | disposition home health service (06) | DRG 690 ==
LOC: SERX 19:48 → SERHOLD 11-19 01:40 → S3SX 11-19 02:36
PROVIDERS: Physician Assistant; Student in an Organized Health Care Education/Training Program; Admitting Provider Internal Medicine; Emergency Provider Emergency Medicine; PCP Family Medicine; Visit Provider Internal Medicine
DX: N39.0 Urinary tract infection, site not specified (principal); Z94.0 Kidney transplant status; E87.1 Hypo-osmolality and hyponatremia; D84.821 Immunodeficiency due to drugs; E10.65 Type 1 diabetes mellitus with hyperglycemia; Z96.41 Presence of insulin pump (external) (internal); E10.22 Type 1 diabetes mellitus with diabetic chronic kidney disease; I95.1 Orthostatic hypotension; Z79.624 Long term (current) use of inhibitors of nucleotide synthesis; Z79.82 Long term (current) use of aspirin; Z86.14 Personal history of Methicillin resistant Staphylococcus aureus infection
CPT/HCPCS: 36415; 76776; 77001; 80048; 80053; 80197; 81001; 82010; 83036; 83735; 84100; 85025; 85610; 85730; 87040; 87086; 96361; 96365; 99284; C1751; C1894; J1642; J2185; J3010; J3490; J7030; J7050; J7507; J7512; J7517; Q0162; A9270

== ENCOUNTER 2024-12-16 09:06 | Outpatient (CLI) | payer OTHER, SELFPAY ==
[2024-12-13 16:08] VITALS: BMI 29.4
[2024-12-16] VITALS (7 sets, daily range): BP systolic 135–170; BP diastolic 75–97; PULSE 69–85; RESP 9–20; TEMP 36.4; O2SAT 93–97
--- NOTE | 2024-12-16 10:00 | XR_ITS ---
Examination: Venous access removal of tunneled central line Fluoroscopy AP chest 2 views Date and time: December 16, 2024 1027 hours INDICATIONS: No longer needed for intravenous antibiotic therapy for urinary tract infection TECHNIQUE AND FINDINGS: Informed consent provided. Timeout performed. Skin prepped over the entrance site of the tunneled central line hand hygiene sterile drape applied 1% lidocaine administered for local anesthesia Careful dissection around the tunneled central line was successful removal, 1 cc blood loss Patient instable condition at completion procedure IMPRESSION: Successful venous access removal of tunneled central line Fluoroscopy 0.1 minute radiation dose 0.15 milligray 2 spot fluoroscopic chest films Second chest film post removal central line no longer demonstrates the central line
--- NOTE | 2024-12-16 10:35 | PC.NURSE ---
per md weiner no labs required.
[2024-12-16] MEDS: LIDOCAINE INJ PF 1% 30 ML VIAL INFL (11:10)
== END 2024-12-16 12:00 | disposition home or self-care (01) ==
PROVIDERS: PCP Family Medicine; Referring Provider Internal Medicine Nephrology; Visit Provider Internal Medicine Nephrology
DX: Z94.0 Kidney transplant status (principal)
CPT/HCPCS: 36589; 77001; A4649; J3490

== ENCOUNTER 2025-01-25 15:27 | Inpatient (IN) | payer MEDICARE, OTHER, SELFPAY ==
[2025-01-25 15:28] VITALS: BMI 28.7
[2025-01-25 15:46] VITALS: BP 95/68; PULSE 94; RESP 18; TEMP 36.4; O2SAT 95
--- NOTE | 2025-01-25 15:58 | EKG_ITS ---
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
--- NOTE | 2025-01-25 15:59 | XR_ITS ---
EXAMINATION: AP chest single view TECHNIQUE: AP portable upright chest single view Date and time: January 25, 2025, 1626 hours, comparison January 28, 2024 INDICATIONS: Fever today. FINDINGS: Normal heart size The lungs are clear. The osseous structures are intact. IMPRESSION: No active disease
--- NOTE | 2025-01-25 16:01 | EDRME_ITS ---
<Statement entered by Altagracia Barajas MD - 01/31/25 13:26> I personally discussed the patient care with the emergency room physician appears show developed episode of chest pain was found to have acute NSTEMI recommend admission to the hospital will continue to monitor the patient consultation and follow-up after admission Rapid Medical Screening Exam RME Arrival date/time: 01/25/25 15:27 This is a 49-year-old female that comes into the emergency room with complaints of dizziness shortness of breath and feeling weak. Patient reports that she has had a kidney transplant in the past. Patient being followed by a physician at [facility] for polycythemia. Patient reports that she does not know if she had a fever but she definitely had chills. Patient reports that her blood pressure was in the 80s systolic at home. Patient arrives to the emergency room and blood pressure in the 90s systolic. Patient reports history of diabetes type 1 . Patient reports that she has an insulin pump. Patient also reports history of cardiac stents in the past. She denies chest pain but does report shortness of breath. Also has history of depression and hypertension. I have greeted and performed a focused initial assessment of this patient. Initial appropriate labs ordered at this time. A comprehensive ED assessment and evaluation of the patient and analysis of all test and completion of medical decision making process will be conducted by additional ED provider. Chief Complaint: Dizziness Time Seen by Provider: 01/25/25 15:36 Vital signs: Vital Signs Temperature 97.5 F 01/25/25 15:46 Pulse Rate 94 01/25/25 15:46 Respiratory Rate 18 01/25/25 15:46 Blood Pressure 95/68 01/25/25 15:46 Pulse Oximetry (%) 95 01/25/25 15:46 Oxygen Delivery Method Room Air 01/25/25 15:46
[2025-01-25 16:10] VITALS: BP 111/76; PULSE 84; RESP 19; TEMP 37.1; O2SAT 100
[2025-01-25 16:43] LABS: Lactate (Lactic Acid) 1.8 mMol/L (0.4-2.0)
[2025-01-25 16:52] LABS: Basophils # (Auto) 0.0 Thou/mm3 (0.0-0.2); Basophils % (Auto) 1 % (0-2.5); Eosinophils # (Auto) 0.0 Thou/mm3 (0.0-0.5); Eosinophils % (Auto) 0 % (0-10); Hematocrit 64.5 % (36.0-46.0); Immature Granulocytes Auto 0.02 Thou/mm3 (0.00-0.00); Lymphocytes # (Auto) 0.3 Thou/mm3 (1.0-4.8); Lymphocytes % (Auto) 4 % (10-50); Mean Corpuscular HGB Conc 31.8 g/dl (31.0-37.0); Mean Corpuscular Hemoglobin 30.3 pg (25.0-35.0); Mean Corpuscular Volume 95 fL (80-100); Monocytes # (Auto) 0.8 Thou/mm3 (0.0-0.8); Monocytes % (Auto) 10 % (0-12); Neutrophils # (Auto) 6.9 Thou/mm3 (1.8-7.7); Neutrophils % (Auto) 85 % (37-80); Nucleated Red Blood Cell # 0.00 Thou/mm3 (0.00-0.00); Nucleated Red Blood Cell % 0 /100 WBC (0); Platelet Count 171 Thou/mm3 (140-440); RDW Standard Deviation 48.5 fL (36.4-46.3); Red Blood Count 6.77 Miln/mm3 (4.00-5.20); White Blood Count 8.2 Thou/mm3 (3.6-11.0)
--- NOTE | 2025-01-25 17:14 | XR_ITS ---
Examination: CT brain head without contrast. 2-D sagittal coronal reconstructions Date and time of exam: January 25, 2025, 1826 hours, comparison August 27, 2023 INDICATIONS: Headaches beginning 2 days ago CTDI: vol (mGy): 48.8 DLP: (mGycm): 956 Technique: Multiple CT axial sections of the brain have been obtained, 5 mm slice thickness. Contrast has not been administered. 2-D sagittal, coronal reconstructions have been obtained Low dose protocols were performed. One or more of the following dose reduction techniques were used; automated exposure control, adjustment of the mA and/or KV according to patient size, use of iterative reconstruction technique. Findings: No significant ventricular enlargement. Intra-axial or extra-axial hemorrhage density is not seen. No mass effect or midline shift Basal cisterns are not remarkable. Fourth ventricle is midline. Cranial vault intact. Impression: Negative for acute hemorrhage, mass effect or midline shift Advise clinical correlation and follow-up accordingly
--- NOTE | 2025-01-25 17:16 | PD.EDWEAK ---
ED Weakness RME/HPI General Chief complaint: Dizziness Stated complaint: DIZZY, WEAK, NAUSEA X3 DAYS Time Seen by Provider: 01/25/25 15:36 Arrival date/time: 01/25/25 15:27 Limitations: no limitations RME / HPI RME / HPI Narrative: 01/25/25 15:27 This is a 49-year-old female that comes into the emergency room with complaints of dizziness shortness of breath and feeling weak. Patient reports that she has had a kidney transplant in the past. Patient being followed by a physician at [facility] for polycythemia. Patient reports that she does not know if she had a fever but she definitely had chills. Patient reports that her blood pressure was in the 80s systolic at home. Patient arrives to the emergency room and blood pressure in the 90s systolic. Patient reports history of diabetes type 1 . Patient reports that she has an insulin pump. Patient also reports history of cardiac stents in the past. She denies chest pain but does report shortness of breath. Also has history of depression and hypertension. I have greeted and performed a focused initial assessment of this patient. Initial appropriate labs ordered at this time. A comprehensive ED assessment and evaluation of the patient and analysis of all test and completion of medical decision making process will be conducted by additional ED provider. 4:45p Dr. Kaplan evaluation. Patient is a 49-year-old female with medical history notable for coronary artery disease status post stent follows with Dr. Cartwright and Dr. Srinath Barajas, diabetes, complicated by renal failure, status post renal transplant performed at [facility] earlier this year, GERD, that send emergency department with concerns for weakness since Monday. Patient also had 1 episode of diarrhea. Patient also with nausea however no vomiting. No recent travel however does have a sick contact with URI symptoms. Patient feels that she has been overexerting herself over the last couple weeks because of family demands at home. She denies chest pain palpitations however does have occasional PVCs and this is known. Denies dysuria hematuria melena bloody stools. Patient states that her urine output has not changed. Denies drugs alcohol smoking. States that she also has a history of polycythemia and in the past has had to have apheresis because her hemoglobin has been too high. Patient states that she has a headache right now however no longer is dizzy. With regards to her dizziness she felt lightheaded and like she was going to pass out. Also at one point felt like the room was spinning. Denies any weakness in her extremities. No confusion. Patient follows with Dr. Srinath Barajas. Patient does not follow with a bariatric nurse. Patient has never had a SHASHANK. Related Data Home Medications ?Medication ?Instructions ?Recorded ?Confirmed clonazepam 0.5 mg tablet 0.5 mg PO HS 06/02/21 12/16/24 duloxetine 60 mg capsule,delayed 60 mg PO .AM 07/02/21 12/16/24 release pregabalin 150 mg capsule (Lyrica) 150 mg PO DAILY 05/26/22 12/16/24 glucagon 1 mg/0.2 mL subcutaneous 1 mg subcut PRN PRN Hypoglycemia 02/16/23 12/16/24 auto-injector ([employer] HypoPen 2-Pack) bupropion HCl 150 mg 24 hr tablet, 150 mg PO DAILY 11/18/23 12/16/24 extended release aspirin 81 mg tablet,delayed 81 mg PO QDAY 11/19/24 12/16/24 release (Adult Low Dose Aspirin) Held on 12/16/24. Instructions: Resume on 12/18/24. dapsone 100 mg tablet 100 mg PO DAILY 11/19/24 12/16/24 docusate sodium 100 mg capsule 100 mg PO BID PRN constipation 11/19/24 12/16/24 ezetimibe 10 mg tablet 10 mg PO QDAY 11/19/24 12/16/24 fluconazole 100 mg tablet 100 mg PO Q24H 11/19/24 12/16/24 mycophenolate mofetil 250 mg 750 mg PO BID 11/19/24 12/16/24 capsule nifedipine 90 mg tablet,extended 90 mg PO PRN 11/19/24 12/16/24 release 24 hr pantoprazole 40 mg tablet,delayed 40 mg PO DAILY 11/19/24 12/16/24 release prednisone 5 mg tablet 5 mg PO DAILY 11/19/24 12/16/24 tacrolimus 0.5 mg capsule, 1 mg PO HS 11/19/24 12/16/24 immediate-release (Prograf) tacrolimus 1 mg capsule, 2 mg PO .AM 11/19/24 12/16/24 immediate-release valganciclovir 450 mg tablet 450 mg PO DAILY 11/19/24 12/16/24 acetaminophen 300 mg-codeine 30 mg 1 tab PO Q6H PRN pain 12/16/24 12/16/24 tablet biotin 5,000 mcg chewable tablet 5,000 mcg PO DAILY 12/16/24 12/16/24 cetirizine 10 mg tablet (All Day 10 mg PO QDAY PRN allergy symptoms 12/16/24 12/16/24 Allergy (cetirizine)) losartan 50 mg tablet 50 mg PO DAILY 12/16/24 12/16/24 sodium di- and 2 tab PO QDAY 12/16/24 12/16/24 monophosphate-potassium phos monobasic 250 mg tablet (J-Cofa-Mgxubau) Allergies Allergy/AdvReac Type Severity Reaction Status Date / Time adhesive Allergy Mild itching Verified 01/25/25 15:31 ED Exam General Limitations: Present no limitations General appearance: Present alert, in no apparent distress and other (Acutely ill-appearing) Head Head exam: Present atraumatic and normocephalic Eye Eye exam: Present normal appearance, PERRL and EOMI ENT ENT exam: Present normal exam, normal oropharynx and mucous membranes moist Neck Neck exam: Present normal inspection and full ROM Chest Chest inspection: Present symmetric chest wall rise and rash (Patient with scattered petechiae, and spider angiomata on chest) Respiratory Respiratory exam: Present normal lung sounds bilaterally; Absent respiratory distress or wheezes Cardiovascular Cardiovascular exam: Present regular rate and normal rhythm Abdominal Exam Abdominal exam: Present soft; Absent distention, tenderness or guarding Extremities Exam Extremities exam: Present normal inspection (No acute abnormalities, patient does have well-healing chronic superficial wounds on her toes patient states that this did not change and minimal. States that she has poor wound healing.) Neurological Exam Neurological exam: Present alert, oriented X3 and CN II-XII intact; Absent motor sensory deficit Psychiatric Psychiatric exam: Present normal affect Skin Skin exam: Present warm and dry; Absent rash Course Quality Measures none Orders Category Date Time Status Bedside COVID-19 Antigen Test NOW Care 01/25/25 17:17 Active Bedside Influenza A&B Antigen Test NOW Care 01/25/25 17:17 Completed EKG (ED ONLY) *Do not use* NOW Care 01/25/25 15:59 Completed EKG (ED ONLY) *Do not use* NOW Care 01/25/25 19:[address] head/brain wo con Stat Exams 01/25/25 17:14 Completed EKG (ED Only) Stat Exams 01/25/25 15:58 Draft EKG (ED Only) Stat Exams 01/25/25 19:50 Ordered XR chest 1V Stat Exams 01/25/25 15:59 Completed BNP [B-Type Natriuretic Peptide] Stat Lab 01/25/25 16:39 Completed Blood Culture (Lab) Stat Lab 01/25/25 16:39 Received CBC Stat Lab 01/25/25 16:39 Completed Comprehensive Metabolic Panel Stat Lab 01/25/25 16:39 Completed Lactate (Lactic Acid) Stat Lab 01/25/25 16:27 Completed Procalcitonin Stat Lab 01/25/25 16:39 Completed Troponin I Stat Lab 01/25/25 16:39 Completed Troponin I Stat Lab 01/25/25 19:24 Completed Urinalysis, C/S if Indicated Stat Lab 01/25/25 17:21 Completed Acetaminophen Tab [Tylenol Tab] Med 01/25/25 18:36 Discontinued 650 mg PO X1 ONE Ondansetron Inj [Zofran Inj] Med 01/25/25 18:58 Discontinued 4 mg IVP X1 ONE Ringers Lactated 1000 ml [Lactated Ringers] 1,000 ml Med 01/25/25 17:14 Discontinued IV 999 mls/hr Ringers Lactated 1000 ml [Lactated Ringers] 1,000 ml Med 01/25/25 17:25 Discontinued IV 999 mls/hr Ringers Lactated 500 ml [Lactated Ringers] 500 ml Med 01/25/25 17:15 Discontinued IV 500 mls/hr Ringers Lactated 500 ml [Lactated Ringers] 500 ml Med 01/25/25 19:53 Active IV 500 mls/hr Vital Signs Vital signs: Vital Signs Temperature 97.5 F 01/25/25 15:46 Pulse Rate 94 01/25/25 15:46 Respiratory Rate 18 01/25/25 15:46 Blood Pressure 95/68 01/25/25 15:46 Pulse Oximetry (%) 95 01/25/25 15:46 Oxygen Delivery Method Room Air 01/25/25 15:46 Weakness MDM Narrative MDM Narrative:: Patient is a 49-year-old female with medical history notable for renal transplant, diabetes, hypertension, GERD sent to the Emergency Department concerns for weakness, nausea, diarrhea, and episode of vertigo since Monday. Vital signs and exam as listed. Concern for ACS arrhythmia electrolyte abnormality transplant rejection, viral syndrome urinary tract infection metabolic disturbance among others. Also concern for intracranial hemorrhage however patient does not have any focal neurodeficits. Ordered labs, EKG chest x-ray CT brain. Also ordered gentle fluid hydration. Patient states she does not have a history of heart failure and has been encouraged to have fluids in the past. EKG performed today at 1650 notable for sinus rhythm, heart rate 86, normal intervals, ST elevation in lead I, mild elevation in aVR aVL V1, as well as V6, no depressions appreciated. In comparison to EKG from 2023, grossly unchanged. Chest x-ray unremarkable. Labs with evidence of hemoglobin 20.5. Patient has a history of polycythemia previously hemoglobin was 17. Patient's hematocrit is 64.5%. Fluids provided. Patient normal white blood cell count, platelets not elevated. Patient without any acute electrolyte abnormalities, creatinine is 1.4 previously normal in November of this year. Fluids were provided. Will hydrate gently. Lactic acid normal. T. bili is 1.3 AST is 48 ALT is normal. Alk phos normal. Initial troponin is 0.137. Patient denies any chest pain or shortness of breath. She does endorse nausea. Will get a repeat troponin, EKG. urinalysis leuk esterase negative nitrate -1 white blood cell 2 red blood cells 7 squames rare bacteria patient without dysuria less likely urinary tract infection. CT brain and chest x-ray unremarkable. 7:55p on re-evaluation, patient continues to decline chest pain. No longer nauseated. Headache is improved. discussed case with Dr. Srinath Barajas. Reviewed the case. Recommends admission, echo, trend troponin, start heparin, and gentle hydration boluses. Will see the patient once admitted. 8:03p discussed case with hospitalist, kindly accepts patient for admission Patient data External records reviewed:: [facility] previous records Clinical information provided by:: patient and family Social determinants that could affect healthcare access:: none Patient has the following chronic illnesses:: See MDM How is presenting disease/condition affected by chronic disease/condition?: exacerbated by Evaluation data The following diagnostics were reviewed and interpreted by me:: lab results, radiology exam(s) and EKG tracing(s) Lab and/or radiology exams considered but not ordered:: None Interpretation Summary: See MDM Medications / Prescriptions Medications or Prescriptions considered but not ordered:: None Medication administrations:: Medication Administration History Lactated Ringer's (Lactated Ringers) 500 mls @ 500 mls/hr IV .Q1H ONE Stop: 01/25/25 20:52 Discontinued Medications Acetaminophen (Acetaminophen 325 Mg Tablet) 650 mg PO X1 ONE Stop: 01/25/25 18:37 Last Admin: 01/25/25 18:53 Dose: 650 mg Documented By: BY Lactated Ringer's (Lactated Ringers) 1,000 mls @ 999 mls/hr IV .Q1H1M ONE Stop: 01/25/25 18:14 Last Admin: 01/25/25 17:29 Dose: Not Given Documented By: BY Non-Admin Reason: Cancelled by Provider Lactated Ringer's (Lactated Ringers) 500 mls @ 500 mls/hr IV .Q1H ONE Stop: 01/25/25 18:14 Last Admin: 01/25/25 17:29 Dose: Not Given Documented By: BY Non-Admin Reason: Cancelled by Provider Lactated Ringer's (Lactated Ringers) 1,000 mls @ 999 mls/hr IV .Q1H1M ONE Stop: 01/25/25 18:25 Last Infusion: 01/25/25 19:18 Dose: Infused Documented By: Admin: 01/25/25 17:32 Dose: 999 mls/hr Documented By: BY Ondansetron HCl (Ondansetron Inj 2 Mg/Ml Inj 2 Ml) 4 mg IVP X1 ONE; Protocol Stop: 01/25/25 18:59 Last Admin: 01/25/25 19:24 Dose: 4 mg Documented By: CCT See above Consultations Consultation(s) initiated? (list below): Yes Diagnosis Weakness Differential Diagnosis: other (headache, elevated troponin, weakness, ) Most likely diagnosis given after review of the tests above:: Elevated troponin, weakness, elevated hemoglobin, dehydration, acute kidney injury Admission Indicated Admission indicated?: indicated Admission Request Was there a request for admission?: Yes Admission Attestation Admission request attestation: Discussed case with [] from Hospitalist service regarding admission. Discussed patients ED course, exam findings, labs, and radiology results. The Hospitalist [agrees,declines] to accept the patient for admission. Disposition Plan Disposition Plan: Admit Critical Care Time Critical Care Time Critical Care Time: Yes Total Critical Care Time (min.): 60 Attestation: Due to a high probability of clinically significant, life threatening deterioration, the patient required my highest level of preparedness to intervene emergently and I personally spent this critical care time directly and personally managing the patient. This critical care time included obtaining a history; examining the patient; pulse oximetry; ordering and review of studies; arranging urgent treatment with development of a management plan; evaluation of patient's response to treatment; frequent reassessment; and, discussions with other providers. This critical care time was performed to assess and manage the high probability of imminent, life-threatening deterioration that could result in multi-organ failure. It was exclusive of separately billable procedures and treating other patients and teaching time. Please see MDM section and the rest of the note for further information on patient assessment and treatment. Discharge Plan Plan Patient Disposition: Admit Acute Care w/in Hospital Prescriptions/Referrals Prescriptions/Med Rec: No Action clonazepam 0.5 mg tablet 0.5 mg PO HS duloxetine 60 mg capsule,delayed release(DR/EC) 60 mg PO .AM Patient Comments: TAKE 1 CAPSULE BY MOUTH AT BEDTIME pregabalin [Lyrica] 150 mg Capsule 150 mg PO DAILY [employer] HypoPen 2-Pack 1 mg/0.2 mL auto-injector 1 mg SUBCUT PRN PRN (Reason: Hypoglycemia) Patient Comments: INJECT 1MG SUBCUTANEOUS NEEDED FOR LOW BS 30 DAYS bupropion HCl 150 mg tablet extended release 24 hr 150 mg PO DAILY Patient Comments: TAKE 1 TABLET BY MOUTH EVERY DAY IN THE MORNING FOR 30 DAYS tacrolimus 1 mg capsule 2 mg PO .AM fluconazole 100 mg tablet 100 mg PO Q24H Patient Comments: TAKE 1 TABLET BY MOUTH EVERY DAY valganciclovir 450 mg tablet 450 mg PO DAILY Patient Comments: TAKE 1 TABLET BY MOUTH EVERY DAY mycophenolate mofetil 250 mg capsule 750 mg PO BID Patient Comments: TAKE 3 CAPSULES BY MOUTH TWICE A DAY dapsone 100 mg tablet 100 mg PO DAILY Patient Comments: TAKE 1 TABLET BY MOUTH EVERY DAY pantoprazole 40 mg tablet,delayed release (DR/EC) 40 mg PO DAILY nifedipine 90 mg tablet extended release 24hr 90 mg PO PRN Patient Comments: TAKE 1 TABLET BY MOUTH TWICE A DAY docusate sodium 100 mg capsule 100 mg PO BID PRN (Reason: constipation) prednisone 5 mg tablet 5 mg PO DAILY Patient Comments: TAKE 1 TABLET BY MOUTH DAILY WITH FOOD ezetimibe 10 mg tablet 10 mg PO QDAY aspirin [Adult Low Dose Aspirin] 81 mg tablet,delayed release (DR/EC) 81 mg PO QDAY tacrolimus [Prograf] 0.5 mg capsule 1 mg PO HS Patient Comments: take 1 mg po every night I-Qzzt-Eeacjzl 250 mg tablet 2 tab PO QDAY losartan 50 mg tablet 50 mg PO DAILY Patient Comments: TAKE 1 TABLET BY MOUTH EVERY DAY cetirizine [All Day Allergy (cetirizine)] 10 mg tablet 10 mg PO QDAY PRN (Reason: allergy symptoms) biotin 5,000 mcg tablet,chewable 5,000 mcg PO DAILY acetaminophen-codeine 300-30 mg tablet 1 tab PO Q6H PRN (Reason: pain) Patient Comments: TAKE 1 TABLET BY MOUTH EVERY 6 HOURS NEEDED Referrals: Sofi Granados MD [Primary Care Provider, Family Practice] - In 1 week Problem List Clinical Impression: Elevated troponin, Weakness, Nausea, Headache, Polycythemia, Acute kidney injury Patient/Caregiver Discharge Instructions Print Language: Citizen [place] Stand Alone Forms: Cynthia Award Info., Patient Portal Info Letter
[2025-01-25 17:20] LABS: Hemoglobin 20.5 g/dL (12.0-16.0)
[2025-01-25 17:30] LABS: B-Type Natriuretic Peptide 66 pg/mL (0-100)
[2025-01-25] MEDS: RINGERS LACTATED 1000 ML 1,000 ML 999 ML IV (17:32)
[2025-01-25 17:37] LABS: Collection Type, Urine Voided
[2025-01-25 17:58] LABS: Bacteria,Urine Rare; Bilirubin,Urine 1+ (Negative); Blood,Urine Negative (Negative); Clarity,Urine Clear (Clear/Hazy); Color,Urine Yellow (Lt Yel-Yel); Culture Indicated,Urine Not Indicated; Glucose, Urine Negative (Negative); Hyaline Casts,Urine 1 /hpf (0-1); Ketones,Urine 1+ (Negative); Leukocyte Esterase,Urine Negative (Negative); Nitrite,Urine Negative (Negative); PH,Urine 5.5 (5.0-7.0); Protein,Urine Trace (Neg - Trace); RBC,Urine 2 /hpf (0-3); Specific Gravity,Urine 1.022 (1.001-1.035); Squamous Epithelial Cell,Urine 7 /hpf (0-5); Urobilinogen,Urine 2.0 mg/dL (0.0-1.0); WBC,Urine 1 /hpf (0-5)
[2025-01-25 18:05] VITALS: BP 133/82; PULSE 88; RESP 18; TEMP 36.4; O2SAT 95
[2025-01-25 18:29] LABS: Alanine Aminotransferase 16 U/L (10-49); Albumin, Serum 4.5 gm/dL (3.5-5.0); Albumin/Globulin Ratio 2.1 (1.2-2.2); Alkaline Phosphatase 100 U/L (46-116); Anion Gap 18 (7-16); Aspartate Amino Transferase 48 U/L (0-34); BUN/Creatinine Ratio 15 Ratio (12-20); Bilirubin,Total 1.3 mg/dL (0.3-1.2); Blood Urea Nitrogen 21 mg/dL (9-23); Calcium 10.1 mg/dL (8.3-10.6); Calcium (Corrected) 10.1 mg/dL (8.5-10.1); Carbon Dioxide 20.8 mMol/L (20.0-31.0); Chloride 100 mMol/L (98-107); Creatinine (Component) 1.4 mg/dL (0.6-1.3); Estimated Creatinine Clearance 58.1 mL/min (>60); Globulin 2.1 gm/dL (2.3-3.5); Glucose 105 mg/dL (74-106); Osmolality,Calculated 280 (275-295); Potassium 4.6 mMol/L (3.4-5.1); Procalcitonin 0.11 ng/ml (0.0-0.49); Sodium 139 mMol/L (136-145); Total Protein 6.6 gm/dL (5.7-8.2); eGFR 46 See Note
[2025-01-25 18:36] LABS: Troponin I 0.137 ng/mL (0.0-0.045)
[2025-01-25] MEDS: ACETAMINOPHEN 325 MG TABLET 650 MG PO ×2 (18:53→23:32)
[2025-01-25] MEDS: ONDANSETRON INJ 2 MG/ML INJ 2 ML 4 MG IVP (19:24)
--- NOTE | 2025-01-25 19:50 | EKG_ITS ---
[facility] Test Date: 2025-01-25 Pat Name: LUCRETIA PINA Department: Room: - Gender: Female [employer] Sewer: : 1975 Requested By: Pauline Flalon Order Number: [id number] Reading MD: Pauline Fallon Measurements Intervals [place] Rate: 84 P: -14 PA: 172 QRS: 44 QRSD: 97 T: 89 QT: 392 QTc: 464 Interpretive Statements SINUS RHYTHM LOW QRS VOLTAGE IN EXTREMITY LEADS [QRS DEFLECTION < 0.5 mV IN LIMB LEADS] PATTERN CONSISTENT WITH PULMONARY DISEASE Compared to ECG 01/25/2025 16:01:44 Low QRS voltage now present Myocardial infarct finding no longer present /store/S0/[id number]/ecg/[id number].pdf
[2025-01-25 20:00] LABS: Troponin I 0.162 ng/mL (0.0-0.045)
[2025-01-25] MEDS: RINGERS LACTATED 500 ML 500 ML IV (20:12)
[2025-01-25 21:00] VITALS: BP 128/90; PULSE 83; RESP 18; TEMP 36.9; O2SAT 95
[2025-01-25 21:05] LABS: INR 1.2 (0.9-1.3); Partial Thromboplastin Time 28.5 Seconds (22.0-36.0); Prothrombin Time 12.9 Seconds (9.0-12.2)
[2025-01-25] MEDS: Heparin/D5w 25K 250 ML Ivpb 25,000 UNIT/250 ML BAG 9.979 UNIT IV (21:21)
[2025-01-25] MEDS: HEPARIN SOD INJ 5000 UNIT/ML VIAL 4000 UNIT IV (21:21)
--- NOTE | 2025-01-25 21:35 | ECHO_ITS ---
Transthoracic Echo Report Ht (in): 70 Wt (lb): 200 Exam Location: Echo Lab Status: Inpatient Dental Office Receptionist: Merle Rankin Indications: Procedure Performed: BP: 137 / 88 HR: 76 Technical Quality: Fair MEASUREMENTS (Male / Female) Normal Values 2D ECHO LV Diastolic Diameter PLAX 4.7 cm 4.2 - 5.9 / 3.9 - 5.3 cm LV Systolic Diameter PLAX 3.2 cm IVS Diastolic Thickness 1.0 cm 0.6 - 1.0 / 0.6 - 0.9 cm LVPW Diastolic Thickness 0.9 cm 0.6 - 1.0 / 0.6 - 0.9 cm LV Relative Wall Thickness 0.4 LVOT Diameter 2.0 cm Aortic Root Diameter 3.2 cm LA Systolic Diameter LX 3.0 cm 3.0 - 4.0 / 2.7 - 3.8 cm LV Ejection Fraction MOD BP 67.9 % >= 55 % LV Cardiac Index MOD BP 2561.2 cm?/min?m? LV Ejection Fraction MOD 4C 71.3 % LV Cardiac Index MOD 4C 2867.2 cm?/min?m? LV Ejection Fraction 4C AL 72.1 % LV Cardiac Index 4C AL 3015.6 cm?/min?m? LV Ejection Fraction MOD 2C 63.8 % LV Cardiac Index MOD 2C 2148.6 cm?/min?m? LV Ejection Fraction 2C AL 64.4 % LV Cardiac Index 2C AL 2209.2 cm?/min?m? LA Volume Index 21.4 cm?/m? 16 - 28 cm?/m? M-MODE Aortic Root Diameter MM 2.5 cm LA Systolic Diameter MM 3.7 cm LA Ao Ratio MM 1.5 AV Cusp Separation MM 1.9 cm DOPPLER AV Peak Velocity 151.0 cm/s AV Peak Gradient 9.1 mmHg AV Mean Gradient 4.0 mmHg AV Velocity Time Integral 28.5 cm LVOT Peak Velocity 112.0 cm/s LVOT Peak Gradient 5.0 mmHg LVOT Velocity Time Integral 20.6 cm LVOT Cardiac Index 2302.2 cm?/min?m? AV Area Cont Eq vti 2.3 cm? AV Area Cont Eq pk 2.3 cm? MV Area PHT 3.9 cm? Mitral E Point Velocity 46.6 cm/s Mitral A Point Velocity 73.7 cm/s Mitral E to A Ratio 0.6 LV E' Lateral Velocity 8.6 cm/s Mitral E to LV E' Lateral Ratio 5.4 LV E' Septal Velocity 3.8 cm/s Mitral E to LV E' Septal Ratio 12.2 PV Peak Velocity 90.9 cm/s PV Peak Gradient 3.3 mmHg FINDINGS Left Ventricle Normal left ventricular size, wall thickness, systolic function with no obvious regional wall motion abnormalities. There is grade I diastolic dysfunction of the left ventricle (impaired relaxation pattern). The ejection fraction is visually estimated at 55-60 %. Right Ventricle The right ventricle is normal in size and systolic function. Left Atrium The left atrium is normal by two-dimensional, color flow and Doppler imaging with no structural abnormalities, no thrombus formation present. Right Atrium The right atrium is normal by two-dimensional imaging, color flow and Doppler imaging with no structural abnormalities, no thrombus formation present. Atrial Septum The interatrial septum appears normal with no evidence of a shunt. Aorta The aorta is normal by two-dimensional, color flow and Doppler interrogation. Mitral Valve The mitral valve is normal by two-dimensional, color flow and Doppler interrogation. There is no significant mitral valve regurgitation, stenosis or prolapse. Aortic Valve The aortic valve is trileaflet and normal by two-dimensional, color flow and Doppler interrogation. There is no significant aortic valve regurgitation. Tricuspid Valve The tricuspid valve is normal by two-dimensional, color flow and Doppler interrogation. There is no significant tricuspid valve regurgitation. Pulmonic Valve The pulmonic valve is not well visualized. There is no significant pulmonic valve regurgitation. Vessels Inferior vena cava not well visualized. Pericardium The pericardium is normal by two-dimensional imaging. There is no significant pericardial effusion. CONCLUSIONS Indication: ACS Normal left ventricular size and function. Estimated EF at 55-60 %. The RV is normal in size and systolic function. Trace mitral and trace tricuspid regurgitation Yudith Mary (Electronically Signed) Final Date: 26 January 2025 14:23
[2025-01-25 22:41] LABS: Troponin I 0.133 ng/mL (0.0-0.045)
--- NOTE | 2025-01-25 22:47 | PD.RESHP ---
Documentation for date of: 01/25/25 [facility] History of Present Illness Chief complaint: Diziness,Weakness. History of present illness: This is a 49-year-old female with past medical history of hypertension, hyperlipidemia, ESRD s/p renal transplant ( 09/01), DM type I, polycythemia, LAD stent presented to the ED with complaints of dizziness, weakness. She has been experiencing weakness, dizziness, headache since last 4 days. She describes dizziness even when she lays flat on bed but denies any loss of consciousness, blackout, seizures or falls. She endorses headache mostly localized around the frontal and temporal part not relieved on Tylenol. She also endorses nausea but denies vomiting and takes Zofran as needed. She endorses shortness of breath but denies any chest pain, chest tightness, palpitations since last 3 days. She complains of fever and chills about 2 days back and loss of appetite but denies any cough, increased sputum, urinary frequency, urgency, burning micturition. Had an episode of diarrhea but denies any abdominal pain. Today ED visit vitals: BP 95/68, NM 83, respiratory 18, temperature 98.5 ?F, saturating 95% on room air. Pertinent labs are: Hemoglobin 20.5, hematocrit 64.5, BUN 21, creatinine 1.4, total bilirubin 1.3, AST 48, troponin 0.162, anion gap 18, PT 12.9, estimated creatinine clearance 58.1, eGFR 46. Imaging findings EKG possible anterior IA, CT head negative for any mass, hemorrhage or midline shift, chest x-ray looks normal. Past medical history: Polycythemia had 2 episodes of apheresis at [facility]. Allergy history: Chlorhexidine ? rash Most adhesive tapes ? rash/irritation (tolerates briefly) Family History: Mother: Rheumatoid arthritis, glomerulonephritis,Father: Autoimmune arthritis (unspecified) Social History: Lives with , mother, and daughter ,No tobacco, alcohol, or illicit drug use. Review of Systems Review of Systems Systems Reviewed: All systems reviewed, normal except as documented Exam Vital Signs Temp Pulse Resp BP Pulse Ox O2 Del Method 98.5 F 83 18 128/90 H 95 Room Air 01/25/25 21:00 01/25/25 21:00 01/25/25 21:00 01/25/25 21:00 01/25/25 21:00 01/25/25 21:00 Narrative Exam GENERAL: NAD, AAOx3 HEENT: Moist mucosa. Eyes open, symmetrical, & clear CARDIO: Regular rhythm Noted. No Murmurs. PULM: No noted coughing/dyspnea CTA B/L, no R/W/R GI: Abdomen soft, nondistended, No Tenderness on palpation. SKIN/MSK/EXT: No wounds/rashes/amputations, no pain on palpation.. Pedal pulses present B/L NEURO: AAOx3, no focal neuro deficits, able to move all 4 extremities Results: Labs 01/26/25 04:55 01/26/25 04:55 Labs: Short CBC 01/25/25 Range/Units 16:39 WBC 8.2 (3.6-11.0) Thou/mm3 Hgb 20.5 H* (12.0-16.0) g/dL Hct 64.5 H* (36.0-46.0) % Plt Count 171 (140-440) Thou/mm3 BMP 01/25/25 16:39 Sodium 139 Potassium 4.6 Chloride 100 Carbon Dioxide 20.8 BUN 21 Creatinine 1.4 H Glucose 105 Calcium 10.1 Cardiac Enzymes 01/25/25 01/25/25 01/25/25 Range/Units 16:39 19:24 22:07 Troponin I 0.137 H* 0.162 H* 0.133 H* (0.0-0.045) ng/mL Liver Function 01/25/25 Range/Units 16:39 Total Bilirubin 1.3 H (0.3-1.2) mg/dL AST 48 H (0-34) U/L ALT 16 (10-49) U/L Alkaline Phosphatase 100 (46-116) U/L Albumin 4.5 (3.5-5.0) gm/dL Urine 01/25/25 Range/Units 17:21 Urine Color Yellow (Lt Yel-Yel) Urine Clarity Clear (Clear/Hazy) Urine pH 5.5 (5.0-7.0) Ur Specific [place] 1.022 (1.001-1.035) Urine Protein Trace (Neg - Trace) Urine Glucose (UA) Negative (Negative) Quality Measures Quality Measures none Medications Home Medications and Allergies Home Medications ?Medication ?Instructions ?Recorded ?Confirmed ?Type clonazepam 0.5 mg tablet 0.5 mg PO HS 06/02/21 01/26/25 History duloxetine 60 mg capsule,delayed 60 mg PO .AM 07/02/21 01/26/25 History release pregabalin 150 mg capsule (Lyrica) 150 mg PO HS 05/26/22 01/26/25 History glucagon 1 mg/0.2 mL subcutaneous 1 mg subcut PRN PRN Hypoglycemia 02/16/23 01/26/25 History auto-injector ([place] HypoPen 2-Pack) bupropion HCl 150 mg 24 hr tablet, 150 mg PO DAILY 11/18/23 01/26/25 History extended release aspirin 81 mg tablet,delayed 81 mg PO QDAY 11/19/24 01/26/25 History release (Adult Low Dose Aspirin) Held on 12/16/24. Instructions: Resume on 12/18/24. dapsone 100 mg tablet 100 mg PO DAILY 11/19/24 01/26/25 History ezetimibe 10 mg tablet 10 mg PO HS 11/19/24 01/26/25 History fluconazole 100 mg tablet 100 mg PO Q24H 11/19/24 01/26/25 History mycophenolate mofetil 250 mg 750 mg PO BID 11/19/24 01/26/25 History capsule nifedipine 90 mg tablet,extended 90 mg PO PRN 11/19/24 01/26/25 History release 24 hr pantoprazole 40 mg tablet,delayed 40 mg PO DAILY 11/19/24 01/26/25 History release prednisone 5 mg tablet 5 mg PO DAILY 11/19/24 01/26/25 History tacrolimus 0.5 mg capsule, 1 mg PO HS 11/19/24 01/26/25 History immediate-release (Prograf) tacrolimus 1 mg capsule, 2 mg PO Q12H 11/19/24 01/26/25 History immediate-release valganciclovir 450 mg tablet 450 mg PO DAILY 11/19/24 01/26/25 History losartan 50 mg tablet 50 mg PO DAILY 12/16/24 01/26/25 History sodium di- and 2 tab PO QDAY 12/16/24 01/26/25 History monophosphate-potassium phos monobasic 250 mg tablet ([id number]) duloxetine 60 mg capsule,delayed 60 mg PO QDAY 01/26/25 01/26/25 History release ondansetron HCl 4 mg tablet 4 mg PO TID PRN nausea and vomiting 01/26/25 01/26/25 History Allergies Allergy/AdvReac Type Severity Reaction Status Date / Time adhesive Allergy Mild itching Verified 01/25/25 15:31 Visit Medications Acetaminophen (Acetaminophen 325 Mg Tablet) 650 mg PO Q6H PRN PRN Reason: Fever >100.4 Stop: 02/24/25 21:12 Acetaminophen (Acetaminophen 325 Mg Tablet) 650 mg PO Q6HR PRN PRN Reason: PAIN SCALE 1-3 (mild Stop: 02/24/25 21:28 Aspirin (Aspirin Ec 81 Mg Tabec) 81 mg PO QDAY [facility] Stop: 02/25/25 08:59 Dextrose (Dextrose 50%-Water Inj 50 Ml Syringe) 25 ml IV Q15MIN PRN PRN Reason: BG 50-70 responsive npo pt Stop: 02/24/25 21:27 Dextrose (Dextrose 50%-Water Inj 50 Ml Syringe) 50 ml IV Q15MIN PRN PRN Reason: BG <50 OR BG <70 & pt unresponsive Stop: 02/24/25 21:27 Fluconazole (Fluconazole 100 Mg Tablet) 100 mg PO QDAY [facility] Stop: 02/02/25 08:59 Glucagon (Glucagon Inj 1 Mg Vial) 1 mg IM Q15MIN PRN PRN Reason: BG <70, and no IV access Heparin Sodium/Dextrose (Heparin In D5w Ivpb) 25,000 unit in 250 mls @ 9.979 mls/hr IV .Q24H [facility]; Protocol Stop: 02/08/25 20:14 Last Admin: 01/25/25 21:21 Dose: 11 units/kg/hr, 9.979 mls/hr Lactated Ringer's (Lactated Ringers) 1,000 mls @ 60 mls/hr IV .[id number] [facility] Stop: 01/26/25 15:21 Mycophenolate Mofetil (Mycophenolate 250 Mg Capsule) 750 mg PO BID [facility] Stop: 02/25/25 08:59 Ondansetron HCl (Ondansetron Inj 2 Mg/Ml Inj 2 Ml) 4 mg IVP Q6H PRN; Protocol PRN Reason: NAUSEA OR VOMITING Stop: 02/24/25 21:12 Patient Own Medication (Patient's Own Med 1 Ea Ea) 450 ea PO QDAY [facility] Stop: 02/25/25 08:59 Patient Own Medication (Patient's Own Med 1 Ea Ea) 100 ea PO QDAY [facility] Stop: 02/25/25 08:59 Prednisone (Prednisone 5 Mg Tablet) 5 mg PO QAM [facility] Stop: 02/25/25 08:59 Sennosides (Senna Tablet) 1 tab PO QDAY PRN; Protocol PRN Reason: CONSTIPATION Stop: 02/24/25 21:28 Tacrolimus (Tacrolimus 1 Mg Capsule) 2 mg PO BID [facility] Stop: 02/25/25 08:59 Discontinued Medications Acetaminophen (Acetaminophen 325 Mg Tablet) 650 mg PO X1 ONE Stop: 01/25/25 18:37 Last Admin: 01/25/25 18:53 Dose: 650 mg Heparin Sodium (Porcine) (Heparin Sod Inj 5000 Unit/Ml Vial) 4,000 unit IV X1 ONE; Protocol Stop: 01/25/25 20:08 Last Admin: 01/25/25 21:21 Dose: 4,000 unit Lactated Ringer's (Lactated Ringers) 1,000 mls @ 999 mls/hr IV .Q1H1M ONE Stop: 01/25/25 18:14 Last Admin: 01/25/25 17:29 Dose: Not Given Lactated Ringer's (Lactated Ringers) 500 mls @ 500 mls/hr IV .Q1H ONE Stop: 01/25/25 18:14 Last Admin: 01/25/25 17:29 Dose: Not Given Lactated Ringer's (Lactated Ringers) 1,000 mls @ 999 mls/hr IV .Q1H1M ONE Stop: 01/25/25 18:25 Last Infusion: 01/25/25 19:18 Dose: Infused Lactated Ringer's (Lactated Ringers) 500 mls @ 500 mls/hr IV .Q1H ONE Stop: 01/25/25 20:52 Last Infusion: 01/25/25 20:59 Dose: Infused Ondansetron HCl (Ondansetron Inj 2 Mg/Ml Inj 2 Ml) 4 mg IVP X1 ONE; Protocol Stop: 01/25/25 18:59 Last Admin: 01/25/25 19:24 Dose: 4 mg Patient Own Medication (Patient's Own Med 1 Ea Ea) 100 ea PO X1 ONE Stop: 01/25/25 22:12 Assessment & Plan Plan This is a 49-year-old female with past medical history of hypertension, hyperlipidemia, ESRD s/p renal transplant ( 09/01), DM type I, polycythemia, LAD stent presented to the ED with complaints of dizziness, weakness. # ? Acute coronary syndrome # Polycythemia Troponins elevated 0.137 on initial presentation.Trending of troponins 0.137--->0.162--->0.133 ED Consulted cardiology spoke with Dr. Barajas and recommended starting on heparin drip Started on heparin drip ;Hemoglobin 20.5,Hematocrit 64.5 Ordered echo. - continue to Monitor Troponin -Consider apheresis # ESRD status post transplantation. Taking mycophenolate, tacrolimus and prednisone at home Follows [facility] [place]. ?Continue on home medication Mycophenolate 2mg BID, Prednisone 5mg qday,Mycophenolate 750mg BID -Continuing Prophylactic medications Dapsone 100mg,flucanazole 100mg,valganocyclovir 450mg -Consulted Broker Associate Dr Samaniego # Diabetes type 1 Type I takes insulin pump at home. Every 6 blood glucose checks # Hypertension Not on any medication because her blood pressure is running low. -Home medication Nifedipine and Losartan. - Holding them in view of Low BP. I discussed this case with my senior Dr. Puckett and my attending Dr. Kenney. Arthur De La Garza MD,PGY1 Attending Provider Attestation/Addendum 49-year-old female with diabetes, hypertension, polycythemia, end-stage renal disease status post renal transplant was admitted for dizziness shortness of breath. Patient has abnormal EKG with poor R wave progression possible Q waves. The patient was referred to cardiology service. Heparin drip was initiated. The patient will be admitted for further workup and treatment. I discussed with and supervised the resident physician who took care of this patient. I agree with the assessment and plan as above.
[2025-01-25] MEDS: RINGERS LACTATED 1000 ML 1,000 ML 60 ML IV (23:32)
[2025-01-26] VITALS (9 sets, daily range): BP systolic 103–156; BP diastolic 64–98; PULSE 76–94; RESP 14–19; TEMP 35.7–36.9; O2SAT 91–95; BMI 30.1
[2025-01-26 04:05] LABS: INR 1.2 (0.9-1.3); Partial Thromboplastin Time 70.6 Seconds (22.0-36.0); Prothrombin Time 12.4 Seconds (9.0-12.2); Troponin I 0.116 ng/mL (0.0-0.045)
[2025-01-26 05:54] LABS: Basophils # (Auto) 0.0 Thou/mm3 (0.0-0.2); Basophils % (Auto) 0 % (0-2.5); Eosinophils # (Auto) 0.0 Thou/mm3 (0.0-0.5); Eosinophils % (Auto) 1 % (0-10); Hematocrit 55.9 % (36.0-46.0); Hemoglobin 18.4 g/dL (12.0-16.0); Immature Granulocytes Auto 0.01 Thou/mm3 (0.00-0.00); Lymphocytes # (Auto) 0.3 Thou/mm3 (1.0-4.8); Lymphocytes % (Auto) 7 % (10-50); Mean Corpuscular HGB Conc 32.9 g/dl (31.0-37.0); Mean Corpuscular Hemoglobin 30.5 pg (25.0-35.0); Mean Corpuscular Volume 93 fL (80-100); Monocytes # (Auto) 0.6 Thou/mm3 (0.0-0.8); Monocytes % (Auto) 14 % (0-12); Neutrophils # (Auto) 3.5 Thou/mm3 (1.8-7.7); Neutrophils % (Auto) 78 % (37-80); Nucleated Red Blood Cell # 0.00 Thou/mm3 (0.00-0.00); Nucleated Red Blood Cell % 0 /100 WBC (0); Platelet Count 134 Thou/mm3 (140-440); RDW Standard Deviation 47.4 fL (36.4-46.3); Red Blood Count 6.03 Miln/mm3 (4.00-5.20); White Blood Count 4.5 Thou/mm3 (3.6-11.0)
[2025-01-26 06:25] LABS: Alanine Aminotransferase 9 U/L (10-49); Albumin, Serum 3.4 gm/dL (3.5-5.0); Albumin/Globulin Ratio 1.8 (1.2-2.2); Alkaline Phosphatase 75 U/L (46-116); Anion Gap 11 (7-16); Aspartate Amino Transferase 34 U/L (0-34); BUN/Creatinine Ratio 9 Ratio (12-20); Bilirubin,Total 0.9 mg/dL (0.3-1.2); Blood Urea Nitrogen 12 mg/dL (9-23); Calcium 9.2 mg/dL (8.3-10.6); Calcium (Corrected) 9.7 mg/dL (8.5-10.1); Carbon Dioxide 24.8 mMol/L (20.0-31.0); Cardiac Risk Estimate 4.9 RATIO (3.7-5.6); Chloride 103 mMol/L (98-107); Cholesterol 183 mg/dL (132-200); Creatinine (Component) 1.4 mg/dL (0.6-1.3); Estimated Creatinine Clearance 59.4 mL/min (>60); Globulin 1.9 gm/dL (2.3-3.5); Glucose 140 mg/dL (74-106); Glucose Estimated Average 128 mg/dL (80-131); HDL Cholesterol 37 mg/dL (40-60); Hemoglobin A1C 6.1 % Hgb (4.8-6.0); LDL Cholesterol,Calculated 125 mg/dL (0-130); Magnesium 1.7 mg/dL (1.6-2.6); Osmolality,Calculated 279 (275-295); Phosphorous 2.5 mg/dL (2.4-5.1); Potassium 4.2 mMol/L (3.4-5.1); Sodium 139 mMol/L (136-145); Total Protein 5.3 gm/dL (5.7-8.2); Triglycerides 106 mg/dL (30-150); eGFR 46 See Note
--- NOTE | 2025-01-26 09:56 | PC.SS ---
Patient is alert/oriented. Patient was able to verify demographics. Patient states she resides at home with spouse. Patient was admitted for dizziness. Patient is independent with ADL's. No DME. Patient is post transplant. Manager Commercial is Dr. Samaniego. Post transplant was at [facility] this last Aug, 2024. Patient has hx: Diabetes. Type 1 insulin pump. PCP: Dr. Emre Granados. Patient plans on returning home upon discharge. No d/c needs. Pharmacy: [facility]. Alt medical decision maker: , Trell Rutherford,
[2025-01-26 10:17] LABS: Troponin I 0.124 ng/mL (0.0-0.045)
[2025-01-26] MEDS: ACETAMINOPHEN 325 MG TABLET 650 MG PO (10:17)
[2025-01-26] MEDS: Magnesium Sulfate 2 GM Ivpb 2 GM/50 ML BAG IV (10:17)
[2025-01-26] MEDS: TACROLIMUS 1 MG CAPSULE 2 MG PO ×2 (10:18→20:04)
[2025-01-26] MEDS: FLUCONAZOLE 100 MG TABLET PO (10:18)
[2025-01-26] MEDS: MYCOPHENOLATE 250 MG CAPSULE 750 MG PO ×2 (10:18→20:03)
[2025-01-26] MEDS: ASPIRIN EC 81 MG TABEC PO (10:18)
[2025-01-26 10:43] LABS: Partial Thromboplastin Time 81.4 Seconds (22.0-36.0)
[2025-01-26] MEDS: VALGANCICLOVIR 450 MG TABLET PO (12:57)
[2025-01-26] MEDS: DAPSONE 100 MG TABLET PO (12:57)
[2025-01-26] MEDS: KETOROLAC INJ 30 MG/ML VIAL 15 MG IVP ×2 (13:00→20:04)
--- NOTE | 2025-01-26 13:01 | ESCONSULT_ITS ---
<Statement entered by Altagracia Barajas MD - 01/31/25 13:27> I personally examined evaluated this patient who has longstanding history of CAD previous stent placement to mid LAD in 2021 renal transplantation on multiple medications admitted to hospital with unspecified angina severe shortness of breath significant elevated troponin level suggestive acute myocardial infarction NSTEMI recommend heparin and aspirin loading dose of Brilinta will schedule for coronary angiogram discussed the case evaluate the patient with PGY 2 Dr. 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 States that she feels dizzy when walking as well as shortness of breath when walking up a flight of stairs but no associated chest discomfort, tightness, or pressure. Also generally feels weak with malaise and headaches. Of note, she had an angiogram done last year and an echo this year in [place] prior to renal transplant - echo was unremarkable and angiogram showed some disease but not enough to stent per patient. No other cardiac procedures done in between stent placement in 2020 and now. In ED, vital signs stable. CBC showed hemoglobin 20.5, hematocrit 64.5. CHEM panel showed creatinine 1.4, GFR 46 T. bili 1.3 initial troponin 0.127 at decreased to 0.162. CXR unremarkable. CT head unremarkable. Initial EKG with nonspecific T-ST changes and second EKG showing sinus rhythm and largely unremarkable. Admitted and cardiology consulted for work-up of acute coronary syndrome. cc:: cc: Arnie Kenney MD Review of Systems Review of Systems Systems Reviewed: All systems reviewed, normal except as documented Exam Vital Signs Temp Pulse Resp BP Pulse Ox O2 Del Method 97.6 F 79 14 142/98 H 95 Room Air 01/26/25 11:54 01/26/25 11:54 01/26/25 11:54 01/26/25 11:54 01/26/25 11:54 01/26/25 11:54 Narrative Exam General: AOx3, no acute distress, able to speak full sentences HEENT: NC/AT, mucous membranes moist, bilateral sclera anicteric Cardiovascular: regular rate and rhythm, S1/S2 present, no murmurs appreciated Pulmonary: clear to auscultation bilaterally, no rales/rhonchi/wheezes Abdominal: soft, non-tender, non-distended, no rebound/guarding, normal bowel sounds present Musculoskeletal: normal ROM, no peripheral edema Skin: warm and dry, intact, no rashes Neuro: CN II-XII intact, no focal deficits Results Labs 01/26/25 04:55 01/26/25 04:55 Labs: Short CBC 01/25/25 01/26/25 Range/Units 16:39 04:55 WBC 8.2 4.5 D (3.6-11.0) Thou/mm3 Hgb 20.5 H* 18.4 H D (12.0-16.0) g/dL Hct 64.5 H* 55.9 H (36.0-46.0) % Plt Count 171 134 L D (140-440) Thou/mm3 BMP 01/25/25 01/26/25 01/26/25 16:39 03:16 04:55 Sodium 139 Cancelled 139 Potassium 4.6 Cancelled 4.2 Chloride 100 Cancelled 103 Carbon Dioxide 20.8 Cancelled 24.8 BUN 21 Cancelled 12 Creatinine 1.4 H Cancelled 1.4 H Glucose 105 Cancelled 140 H Calcium 10.1 Cancelled 9.2 Cardiac Enzymes 01/25/25 01/25/25 01/25/25 Range/Units 16:39 19:24 22:07 Troponin I 0.137 H* 0.162 H* 0.133 H* (0.0-0.045) ng/mL 01/26/25 01/26/25 Range/Units 03:16 09:20 Troponin I 0.116 H* 0.124 H* (0.0-0.045) ng/mL Liver Function 01/25/25 01/26/25 01/26/25 Range/Units 16:39 03:16 04:55 Total Bilirubin 1.3 H Cancelled 0.9 (0.3-1.2) mg/dL AST 48 H Cancelled 34 (0-34) U/L ALT 16 Cancelled 9 L (10-49) U/L Alkaline Phosphatase 100 Cancelled 75 D (46-116) U/L Albumin 4.5 Cancelled 3.4 L D (3.5-5.0) gm/dL Urine 01/25/25 Range/Units 17:21 Urine Color Yellow (Lt Yel-Yel) Urine Clarity Clear (Clear/Hazy) Urine pH 5.5 (5.0-7.0) Ur Specific [place] 1.022 (1.001-1.035) Urine Protein Trace (Neg - Trace) Urine Glucose (UA) Negative (Negative) Quality Measures Quality Measures none Medications Home Medications and Allergies Home Medications ?Medication ?Instructions ?Recorded ?Confirmed ?Type clonazepam 0.5 mg tablet 0.5 mg PO HS 06/02/21 History duloxetine 60 mg capsule,delayed 60 mg PO .AM 07/02/21 01/26/25 History release pregabalin 150 mg capsule (Lyrica) 150 mg PO HS 01/26/25 History glucagon 1 mg/0.2 mL subcutaneous 1 mg subcut PRN PRN Hypoglycemia 02/16/23 01/26/25 History auto-injector ([place] HypoPen 2-Pack) bupropion HCl 150 mg 24 hr tablet, 150 mg PO DAILY 01/3101/26/25 History extended release aspirin 81 mg tablet,delayed 81 mg PO QDAY 11/19/24 History release (Adult Low Dose Aspirin) Held on 12/16/24. Instructions: Resume on 12/18/24. dapsone 100 mg tablet 100 mg PO DAILY 11/19/24 History ezetimibe 10 mg tablet 10 mg PO HS 11/19/24 5 History fluconazole 100 mg tablet 100 mg PO Q24H 11/19/2401/08 History mycophenolate mofetil 250 mg 750 mg PO BID 11/19/24 History capsule nifedipine 90 mg tablet,extended 90 mg PO PRN 11/19/24 01/26/25 History release 24 hr pantoprazole 40 mg tablet,delayed 40 mg PO DAILY 11/1901/26/25 History release prednisone 5 mg tablet 5 mg PO DAILY 11/19/2401/26 History tacrolimus 0.5 mg capsule, 1 mg PO HS 11/19/24 5 History immediate-release (Prograf) tacrolimus 1 mg capsule, 2 mg PO Q12H 11/19/24 History immediate-release valganciclovir 450 mg tablet 450 mg PO DAILY 11/19/24 01/26/25 History losartan 50 mg tablet 50 mg PO DAILY 12/16/2401/08 History sodium di- and 2 tab PO QDAY 12/16/2401/26 History monophosphate-potassium phos monobasic 250 mg tablet ([id number]) duloxetine 60 mg capsule,delayed 60 mg PO QDAY 5 01/26/25 History release ondansetron HCl 4 mg tablet 4 mg PO TID PRN nausea and vomiting 01/26/25 01/26/25 History Allergies Allergy/AdvReac Type Severity Reaction Status Date / Time adhesive Allergy Mild itching Verified 01/25/25 15:31 Visit Medications Acetaminophen (Acetaminophen 325 Mg Tablet) 650 mg PO Q6H PRN PRN Reason: Fever >100.4 Stop: 02/24/25 21:12 Last Admin: 01/26/25 10:17 Dose: 650 mg Acetaminophen (Acetaminophen 325 Mg Tablet) 650 mg PO Q6HR PRN PRN Reason: PAIN SCALE 1-3 (mild Stop: 02/24/25 21:28 Last Admin: 01/25/25 23:32 Dose: 650 mg Aspirin (Aspirin Ec 81 Mg Tabec) 81 mg PO QDAY [facility] Stop: 02/25/25 08:59 Last Admin: 01/26/25 10:18 Dose: 81 mg Bupropion HCl (Bupropion Hcl Xl 150 Mg Tabcr) 150 mg PO DAILY [facility] Stop: 02/25/25 12:59 Valganciclovir 450 (Mg Tablet) 0 ea PO QDAY [facility] Stop: 02/25/25 10:29 Last Admin: 01/26/25 12:57 Dose: 1 tablet Dapsone 100 Mg (Tablet) 0 ea PO QDAY [facility] Stop: 02/25/25 10:29 Last Admin: 01/26/25 12:57 Dose: 1 tablet Dextrose (Dextrose 50%-Water Inj 50 Ml Syringe) 25 ml IV Q15MIN PRN PRN Reason: BG 50-70 responsive npo pt Stop: 02/24/25 21:27 Dextrose (Dextrose 50%-Water Inj 50 Ml Syringe) 50 ml IV Q15MIN PRN PRN Reason: BG <50 OR BG <70 & pt unresponsive Stop: 02/24/25 21:27 Duloxetine HCl (Duloxetine Hcl 30 Mg Capsule) 60 mg PO QDAY [facility] Stop: 02/25/25 12:59 Fluconazole (Fluconazole 100 Mg Tablet) 100 mg PO QDAY [facility] Stop: 02/02/25 08:59 Last Admin: 01/26/25 10:18 Dose: 100 mg Glucagon (Glucagon Inj 1 Mg Vial) 1 mg IM Q15MIN PRN PRN Reason: BG <70, and no IV access Heparin Sodium/Dextrose (Heparin In D5w Ivpb) 25,000 unit in 250 mls @ 9.979 mls/hr IV .Q24H [facility]; Protocol Stop: 02/08/25 20:14 Last Titration: 01/26/25 11:39 Dose: 9 units/kg/hr, 8.165 mls/hr Lactated Ringer's (Lactated Ringers) 1,000 mls @ 60 mls/hr IV .[id number] [facility] Stop: 01/26/25 15:21 Last Admin: 01/25/25 23:32 Dose: 60 mls/hr Mycophenolate Mofetil (Mycophenolate 250 Mg Capsule) 750 mg PO BID [facility] Stop: 02/25/25 08:59 Last Admin: 01/26/25 10:18 Dose: 750 mg Ondansetron HCl (Ondansetron Inj 2 Mg/Ml Inj 2 Ml) 4 mg IVP Q6H PRN; Protocol PRN Reason: NAUSEA OR VOMITING Stop: 02/24/25 21:12 Pantoprazole Sodium (Pantoprazole Inj 40 Mg Vial) 40 mg IVP QDAY [facility] Stop: 02/25/25 12:29 Last Admin: 01/26/25 13:01 Dose: 40 mg Prednisone (Prednisone 5 Mg Tablet) 5 mg PO QAM [facility] Stop: 02/25/25 08:59 Last Admin: 01/26/25 10:18 Dose: 5 mg Sennosides (Senna Tablet) 1 tab PO QDAY PRN; Protocol PRN Reason: CONSTIPATION Stop: 02/24/25 21:28 Tacrolimus (Tacrolimus 1 Mg Capsule) 2 mg PO BID [facility] Stop: 02/25/25 08:59 Last Admin: 01/26/25 10:18 Dose: 2 mg Discontinued Medications Acetaminophen (Acetaminophen 325 Mg Tablet) 650 mg PO X1 ONE Stop: 01/25/25 18:37 Last Admin: 01/25/25 18:53 Dose: 650 mg Heparin Sodium (Porcine) (Heparin Sod Inj 5000 Unit/Ml Vial) 4,000 unit IV X1 ONE; Protocol Stop: 01/25/25 20:08 Last Admin: 01/25/25 21:21 Dose: 4,000 unit Lactated Ringer's (Lactated Ringers) 1,000 mls @ 999 mls/hr IV .Q1H1M ONE Stop: 01/25/25 18:14 Last Admin: 01/25/25 17:29 Dose: Not Given Lactated Ringer's (Lactated Ringers) 500 mls @ 500 mls/hr IV .Q1H ONE Stop: 01/25/25 18:14 Last Admin: 01/25/25 17:29 Dose: Not Given Lactated Ringer's (Lactated Ringers) 1,000 mls @ 999 mls/hr IV .Q1H1M ONE Stop: 01/25/25 18:25 Last Infusion: 01/25/25 19:18 Dose: Infused Lactated Ringer's (Lactated Ringers) 500 mls @ 500 mls/hr IV .Q1H ONE Stop: 01/25/25 20:52 Last Infusion: 01/25/25 20:59 Dose: Infused Magnesium Sulfate (Magnesium Sulfate Ivpb) 2 gm in 50 mls @ 25 mls/hr IV X1 ONE Stop: 01/26/25 09:22 Last Admin: 01/26/25 10:17 Dose: 25 mls/hr Ketorolac Tromethamine (Ketorolac Inj 30 Mg/Ml Vial) 15 mg IVP X1 ONE Stop: 01/26/25 12:30 Last Admin: 01/26/25 13:00 Dose: 15 mg Ondansetron HCl (Ondansetron Inj 2 Mg/Ml Inj 2 Ml) 4 mg IVP X1 ONE; Protocol Stop: 01/25/25 18:59 Last Admin: 01/25/25 19:24 Dose: 4 mg Patient Own Medication (Patient's Own Med 1 Ea Ea) 450 ea PO QDAY [facility] Stop: 02/25/25 08:59 Last Admin: 01/26/25 11:10 Dose: Not Given Patient Own Medication (Patient's Own Med 1 Ea Ea) 100 ea PO X1 ONE Stop: 01/25/25 22:12 Last Admin: 01/26/25 01:56 Dose: Not Given Patient Own Medication (Patient's Own Med 1 Ea Ea) 100 ea PO QDAY [facility] Stop: 02/25/25 08:59 Last Admin: 01/26/25 11:10 Dose: Not Given Assessment & Plan Plan 49-year-old female with a history of CAD status post stents in LAD, ESRD s/p renal transplant (08/2024), polycythemia, hypertension, hyperlipidemia, type 1 diabetes mellitus who is admitted for acute coronary syndrome. #Acute coronary syndrome #? NSTEMI type I versus type II #History of CAD status post stents in LAD (2020) Presents with some weakness with associated shortness of breath and nausea for the last 4 days but no chest discomfort. History of stent placement in LAD in 2020 but no other stents placed since then. 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 Initial troponin 0.137 and increased to 0.162 but then down trended 0.133. Initial EKG with nonspecific T-ST changes and second EKG unremarkable. ? Continue heparin drip ? Plan for cardiac cath tomorrow morning, 01/27 ? Aspirin 81 mg daily ? Loading dose of Ticagrelor 180 mg x1 ? Echo ordered ? N.p.o. after midnight #Polycythemia #ESRD s/p renal transplant #Diabetes mellitus #Hypertension #Hyperlipidemia ? Continue management per primary team ----- Plan discussed with attending physician Dr. Karl Lay MD PGY-2 Internal Medicine
--- NOTE | 2025-01-26 13:10 | PD.RESPRO ---
Documentation for date of: 01/26/25 Senior resident attestation: Patient evaluated and examined at the bedside, plan of care discussed with rest of the team including my attending physician, except as noted. Patient complained of presyncopal symptoms, reported that she felt dizzy and nauseous and was not able to eat well for the past few days, reported she is unable to take a few steps due to vomiting/vertigo, is asymptomatic laying down at rest, but as soon as she started to ambulate becomes symptomatic. Noted elevation in troponins, already peaked, cardiology following, tentative plan for cardiac catheterization tomorrow, patient will be made n.p.o. at midnight. Currently on maintenance IV fluids due to GILDA, started clear liquid diet advance as tolerated. #NSTEMI type I versus type II? Per cardiology, patient has history of PCI to LAD in the past, given current troponin elevation, patient is high risk, patient will be made n.p.o. at midnight, currently on heparin drip, cardiac cath tomorrow. #GILDA?baseline creatinine seems to be normal, currently creatinine 1.4, no improvement on IV fluids, will increase rate and encourage p.o. diet. 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 #Dizziness/vertigo?symptoms related to positional change, possible differentials include BPPV , labyrinthitis, orthostatic hypotension #Presyncopal symptoms?likely secondary to orthostatic hypotension,Patient had positive orthostatic vitals, continue IV fluids. #Renal transplant status?continue home immunosuppressive medications. Quresh PGY3 Subjective Subjective Interval history: Patient was seen and examined at bedside today; no acute events overnight. Patient stated that she had been feeling dizzy and not eating well for a few days; she elaborated that she felt like she was going to pass out initially, then she also started feeling a little bit like the room was spinning. She no longer feels that the room is spinning. Patient is on home insulin pump; she has enough Humalog in the pump for approximately 1-2 more days. Patient was advised that she if she wishes to continue on the pump she was bring home supplies, which she will do. Was started on a heparin drip overnight secondary to elevated troponins which were suspicious for ACS; lack of EKG changes or patient's symptomatology goes against this diagnosis. Patient's polycythemia is improving. Exam Vital Signs Temp Pulse Resp BP Pulse Ox O2 Del Method 97.6 F 79 14 142/98 H 95 Room Air 01/26/25 11:54 01/26/25 11:54 01/26/25 11:54 01/26/25 11:54 01/26/25 11:54 01/26/25 11:54 Narrative Exam General: A/O x3, no acute distress, well-nourished, well-developed Eyes: PERRL, EOMI. Anicteric, vision grossly intact. Ears: No ear pain, no ear discharge, Hearing grossly intact. Nose: No nasal discharge. Mouth/Throat: Moist mucous membranes, no redness, no lesions. Neck: Neck supple, non-tender, no cervical lymphadenopathy. Lungs: Clear RESHMA to auscultation and percussion, No accessory muscle use. Cardio: Normal S1/S2, regular rhythm, no murmurs, no JVD or carotid bruits. Abdomen: Soft, non-tender, no palpable masses, peristalsis present, no guarding or rebound. Extremities: Symmetrical, no significant deformities, no peripheral edema , non-tender, peripheral pulses presents. Skin: No rashes, no lesions, warm to touch. Neuro: No focal neurological deficits. Psych: Cooperative, appropriate mood and effect. Objective Labs 01/27/25 05:43 01/26/25 04:55 Labs: Laboratory Results - last 24 hr 01/25/25 01/25/25 01/25/25 16:27 16:39 17:21 WBC 8.2 RBC 6.77 H Hgb 20.5 H* Hct 64.5 H* MCV 95 MCH 30.3 MCHC 31.8 RDW Std Deviation 48.5 H Plt Count 171 Neut % (Auto) 85 H Lymph % (Auto) 4 L [place] % (Auto) 10 Eos % (Auto) 0 Baso % (Auto) 1 Neut # (Auto) 6.9 Lymph # (Auto) 0.3 L [place] # (Auto) 0.8 Eos # (Auto) 0.0 Baso # (Auto) 0.0 Immature Gran # (Auto) 0.02 H Absolute Nucleated RBC 0.00 Immature Gran % 0 Nucleated RBC % 0 PT INR APTT Sodium 139 Potassium 4.6 Chloride 100 Carbon Dioxide 20.8 Anion Gap 18 H BUN 21 Creatinine 1.4 H Estim Creat Clear Calc 58.1 L eGFR 46 L BUN/Creatinine Ratio [address] Glu mg/dL Hemoglobin A1c Calculated Osmolality 280 Lactic Acid 1.8 Calcium 10.1 Corrected Calcium 10.1 Phosphorus Magnesium Total Bilirubin 1.3 H AST 48 H ALT 16 Alkaline Phosphatase 100 Troponin I 0.137 H* B-Natriuretic Peptide 66 Total Protein 6.6 Albumin 4.5 Globulin 2.1 L Albumin/Globulin Ratio 2.1 Triglycerides Cholesterol LDL Cholesterol, Calc HDL Cholesterol Cholesterol/HDL Ratio Procalcitonin 0.11 Ur Collection Type Voided Urine Color Yellow Urine Clarity Clear Urine pH 5.5 Ur Specific [place] 1.022 Urine Protein Trace Urine Glucose (UA) Negative Urine Ketones 1+ A Urine Blood Negative Urine Nitrite Negative Urine Bilirubin 1+ A Urine Urobilinogen (Auto) 2.0 Ur Leukocyte Esterase Negative Urine RBC 2 Urine WBC 1 Ur Squamous Epith Cells 7 H Urine Bacteria Rare Hyaline Casts 1 Ur Culture Indicated? Not Indicated 01/25/25 01/25/25 01/25/25 19:24 20:32 22:07 WBC RBC Hgb Hct MCV MCH MCHC RDW Std Deviation Plt Count Neut % (Auto) Lymph % (Auto) [place] % (Auto) Eos % (Auto) Baso % (Auto) Neut # (Auto) Lymph # (Auto) [place] # (Auto) Eos # (Auto) Baso # (Auto) Immature Gran # (Auto) Absolute Nucleated RBC Immature Gran % Nucleated RBC % PT 12.9 H INR 1.2 APTT 28.5 Sodium Potassium Chloride Carbon Dioxide Anion Gap BUN Creatinine Estim Creat Clear Calc eGFR BUN/Creatinine Ratio Glucose Estimated Ave Glu mg/dL Hemoglobin A1c Calculated Osmolality Lactic Acid Calcium Corrected Calcium Phosphorus Magnesium Total Bilirubin AST ALT Alkaline Phosphatase Troponin I 0.162 H* 0.133 H* B-Natriuretic Peptide Total Protein Albumin Globulin Albumin/Globulin Ratio Triglycerides Cholesterol LDL Cholesterol, Calc HDL Cholesterol Cholesterol/HDL Ratio Procalcitonin Ur Collection Type Urine Color Urine Clarity Urine pH Ur Specific [place] Urine Protein Urine Glucose (UA) Urine Ketones Urine Blood Urine Nitrite Urine Bilirubin Urine Urobilinogen (Auto) Ur Leukocyte Esterase Urine RBC Urine WBC Ur Squamous Epith Cells Urine Bacteria Hyaline Casts Ur Culture Indicated? 01/26/25 01/26/25 01/26/25 03:16 04:55 09:20 WBC 4.5 D RBC 6.03 H Hgb 18.4 H D Hct 55.9 H MCV 93 MCH 30.5 MCHC 32.9 RDW Std Deviation 47.4 H Plt Count 134 L D Neut % (Auto) 78 Lymph % (Auto) 7 L [place] % (Auto) 14 H Eos % (Auto) 1 Baso % (Auto) 0 Neut # (Auto) 3.5 Lymph # (Auto) 0.3 L [place] # (Auto) 0.6 Eos # (Auto) 0.0 Baso # (Auto) 0.0 Immature Gran # (Auto) 0.01 H Absolute Nucleated RBC 0.00 Immature Gran % 0 Nucleated RBC % 0 PT 12.4 H INR 1.2 APTT 70.6 H D 81.4 H D Sodium Cancelled 139 Potassium Cancelled 4.2 Chloride Cancelled 103 Carbon Dioxide Cancelled 24.8 Anion Gap Cancelled 11 BUN Cancelled 12 Creatinine Cancelled 1.4 H Estim Creat Clear Calc Cancelled 59.4 L eGFR Cancelled 46 L BUN/Creatinine Ratio Cancelled 9 L Glucose Cancelled [address] Glu mg/dL 128 Hemoglobin A1c 6.1 H Calculated Osmolality Cancelled 279 Lactic Acid Calcium Cancelled 9.2 Corrected Calcium Cancelled 9.7 Phosphorus Cancelled 2.5 Magnesium Cancelled 1.7 Total Bilirubin Cancelled 0.9 AST Cancelled 34 ALT Cancelled 9 L Alkaline Phosphatase Cancelled 75 D Troponin I 0.116 H* 0.124 H* B-Natriuretic Peptide Total Protein Cancelled 5.3 L Albumin Cancelled 3.4 L D Globulin Cancelled 1.9 L Albumin/Globulin Ratio Cancelled 1.8 Triglycerides Cancelled 106 Cholesterol Cancelled 183 LDL Cholesterol, Calc Cancelled 125 HDL Cholesterol Cancelled 37 L Cholesterol/HDL Ratio Cancelled 4.9 Procalcitonin Ur Collection Type Urine Color Urine Clarity Urine pH Ur Specific [place] Urine Protein Urine Glucose (UA) Urine Ketones Urine Blood Urine Nitrite Urine Bilirubin Urine Urobilinogen (Auto) Ur Leukocyte Esterase Urine RBC Urine WBC Ur Squamous Epith Cells Urine Bacteria Hyaline Casts Ur Culture Indicated? Quality Measures Quality Measures none Assessment & Plan Assessment Current Active Medications: Generic Name Dose Route Start Last Admin Trade Name Freq PRN Reason Stop Dose Admin Acetaminophen 650 mg 01/25/25 21:13 01/26/25 10:17 Acetaminophen 325 Mg Tablet PO 02/24/25 21:12 650 mg Q6H PRN Administration Fever >100.4 Acetaminophen 650 mg 01/25/25 21:29 01/25/25 23:32 Acetaminophen 325 Mg Tablet PO 02/24/25 21:28 650 mg Q6HR PRN Administration PAIN SCALE 1-3 (mild Aspirin 81 mg 01/26/25 09:00 01/26/25 10:18 Aspirin Ec 81 Mg Tabec PO 02/25/25 08:59 81 mg QDAY CRISTIANE Administration Bupropion HCl 150 mg 01/26/25 13:00 Bupropion Hcl Xl 150 Mg Tabcr PO 02/25/25 12:59 DAILY CRISTIANE Valganciclovir 450 0 ea 01/26/25 10:30 01/26/25 12:57 Mg Tablet PO 02/25/25 10:29 1 tablet QDAY CRISTIANE Administration Dapsone 100 Mg 0 ea 01/26/25 10:30 01/26/25 12:57 Tablet PO 02/25/25 10:29 1 tablet QDAY CRISTIANE Administration Dextrose 25 ml 01/25/25 21:28 Dextrose 50%-Water Inj 50 Ml Syringe IV 02/24/25 21:27 Q15MIN PRN BG 50-70 responsive npo pt Dextrose 50 ml 01/25/25 21:28 Dextrose 50%-Water Inj 50 Ml Syringe IV 02/24/25 21:27 Q15MIN PRN BG <50 OR BG <70 & pt unresponsive Duloxetine HCl 60 mg 01/26/25 13:00 Duloxetine Hcl 30 Mg Capsule PO 02/25/25 12:59 QDAY CRISTIANE Fluconazole 100 mg 01/26/25 09:00 01/26/25 10:18 Fluconazole 100 Mg Tablet PO 02/02/25 08:59 100 mg QDAY CRISTIANE Administration Glucagon 1 mg 01/25/25 21:28 Glucagon Inj 1 Mg Vial IM Q15MIN PRN BG <70, and no IV access Heparin Sodium/Dextrose 25,000 unit in 250 mls @ 9.979 mls/hr 01/25/25 20:15 01/26/25 11:39 Heparin In D5w Ivpb IV 02/08/25 20:14 9 units/kg/hr .Q24H CRISTIANE 8.165 mls/hr Protocol Titration 11 UNITS/KG/HR Lactated Ringer's 1,000 mls @ 60 mls/hr 01/25/25 22:42 01/25/25 23:32 Lactated Ringers IV 01/26/25 15:21 60 mls/hr .[id number] CRISTIANE Administration Mycophenolate Mofetil 750 mg 01/26/25 09:00 01/26/25 10:18 Mycophenolate 250 Mg Capsule PO 02/25/25 08:59 750 mg BID CRISTIANE Administration Ondansetron HCl 4 mg 01/25/25 21:13 Ondansetron Inj 2 Mg/Ml Inj 2 Ml IVP 02/24/25 21:12 Q6H PRN NAUSEA OR VOMITING Protocol Pantoprazole Sodium 40 mg 01/26/25 12:30 01/26/25 13:01 Pantoprazole Inj 40 Mg Vial IVP 02/25/25 12:29 40 mg QDAY CRISTIANE Administration Prednisone 5 mg 01/26/25 09:00 01/26/25 10:18 Prednisone 5 Mg Tablet PO 02/25/25 08:59 5 mg QAM CRISTIANE Administration Sennosides 1 tab 01/25/25 21:29 Senna Tablet PO 02/24/25 21:28 QDAY PRN CONSTIPATION Protocol Tacrolimus 2 mg 01/26/25 09:00 01/26/25 10:18 Tacrolimus 1 Mg Capsule PO 02/25/25 08:59 2 mg BID CRISTIANE Administration Plan Patient is a 49-year-old female with past medical history of end-stage renal disease secondary to type 1 diabetes with renal transplant August 2024, hypertension, hyperlipidemia presenting to the ER on 01/25/2025 for dizziness; patient was admitted for workup of potential acute coronary syndrome and polycythemia. # Acute coronary syndrome (NSTEMI type I vs II) Troponins elevated 0.137 on initial presentation. Trending of troponins 0.137--->0.162--->0.133. Patient has previous AK with LAD stent placement and renal transplant, which are both risk factors. No changes seen on EKG on 01/25/2025 Plan: Started on heparin drip, aspirin [address] Barajas consulted thank you for recommendations, will perform cardiac cath monday (NPO @ midnight) #Presyncopal event #Hypotensive episodes #Orthostatic hypotension #Hx of hypertesion More likely presyncopal vs dizziness due to feeling of about to pass out vs room spinning; patient had not been eating well over past few days. Orthostatic vitals positive. BP was 95/68 on admission. Plan: Receiving 2L LR @ 75cc/hr; not aggressively bolusing secondary to GILDA, euvolemic, and ability to tolerate PO intake Hold home nifedipine and losartan secondary to soft BP # Polycythemia Patient hemoglobin on 01/25/2025 was 20.5; on 01/26/2025 it is 18.4. Plan: Patient is on 2 L LR at 75 cc/h Continue to monitor hemoglobin #GILDA Creatinine 1.4 on admission, and 1.4 today; baseline post-transplant is 0.8-1.0. Secondary to poor oral intake most likely. Plan: patient received 1L LR previously; currently receiving 2L LR @ 75cc/h # ESRD status post transplantation. # GILDA Taking mycophenolate, tacrolimus and prednisone at home Follows [facility]. Plan: Continue on home medication Prednisone 5mg qday,Mycophenolate 750mg BID Continuing Prophylactic medications Dapsone 100mg,flucanazole 100mg,valganocyclovir 450mg Consulted Information Assurance Engineer Dr Samaniego # Diabetes type 1 Uses insulin pump at home; patient does not report any hypoglycemic episodes, and when she does have those episodes they do not feel like the dizziness or syncopal events that she was feeling on this admission Plan: Patient will manage insulin with home pump; has brought humalog from home for pump q6h glucose checks #Hx of depression Home meds include wellbutrin and cymbalta. Plan: Restart home meds Disposition: Will have cath tomorrow DVT prophylaxis: Heparin drip GI prophylaxis: Pantoprazole Diet: clear liquid diet, NPO after midnight Lines: PIV CODE STATUS: Full code This case was discussed with my attending physician, Dr. Ba, and senior resident, Dr. Sargent. Jefferson Gomes MD-PhD, PGY1 Attending Provider Attestation/Addendum I have seen and examined the patient. I was physically present for the mal[place] portions of the services provided including history, physical exam, diagnosis, treatment plans and orders. I agree with assessment and plan of care as documented by residents. Patient seen and examined at bedside this morning. No acute overnight events. Appears comfortable and denies any new complaints. Patient has been feeling dizzy and feeling like passing out for few days. She also has noted that her blood pressure have been on the lower side and stopped taking her antihypertensives for the last week. Denied any chest pain, palpitation or shortness of breath. Patient follows cardiology in [place], had CAD with stent placed in LAD in 2020. She had another angiogram and echocardiogram last year, with unremarkable echocardiographic results and did not receive any stents although she was told that she has some coronary artery disease. Discussed with cardiology, recommended to continue heparin drip along with aspirin, patient is planned for cardiac catheterization tomorrow. We will keep her n.p.o. after midnight, echocardiography is pending. Stated that her polycythemia is secondary to kidney transplantation which has been extensively worked up outpatient. Patient goes periodic phlebotomy. Continues to be on insulin pump for diabetes, blood glucose level remained stable. Blood pressure continues to be on softer side, we will continue to hold her antihypertensives. Even though this this note was carefully revised there may still be minor errors in player piano technician due to voice recognition software. Roberto Ba MD
[2025-01-26] MEDS: DULoxetine HCL 30 MG CAPSULE 60 MG PO (13:12)
[2025-01-26] MEDS: RINGERS LACTATED 1000 ML 1,000 ML 75 ML IV (13:54)
[2025-01-26] MEDS: BuPROPion HCL XL 150 MG TABCR PO (15:01)
[2025-01-26] MEDS: TICAGRELOR 90 MG TABLET 180 MG PO (15:04)
[2025-01-26 19:40] LABS: Partial Thromboplastin Time 52.8 Seconds (22.0-36.0)
[2025-01-26] MEDS: Heparin/D5w 25K 250 ML Ivpb 25,000 UNIT/250 ML BAG 8.165 UNIT IV (20:05)
[2025-01-26] MEDS: PREGABALIN 50 MG CAPSULE 150 MG PO (20:42)
[2025-01-27] VITALS (34 sets, daily range): BP systolic 109–182; BP diastolic 66–121; PULSE 76–95; RESP 13–21; TEMP 36–36.4; O2SAT 92–100; BMI 30.8
[2025-01-27 02:11] LABS: Partial Thromboplastin Time 53.2 Seconds (22.0-36.0)
[2025-01-27] MEDS: ACETAMINOPHEN 325 MG TABLET 650 MG PO ×2 (02:16→10:16)
[2025-01-27] MEDS: RINGERS LACTATED 1000 ML 1,000 ML 75 ML IV (05:50)
[2025-01-27 06:53] LABS: Basophils # (Auto) 0.0 Thou/mm3 (0.0-0.2); Basophils % (Auto) 0 % (0-2.5); Eosinophils # (Auto) 0.0 Thou/mm3 (0.0-0.5); Eosinophils % (Auto) 1 % (0-10); Hematocrit 59.4 % (36.0-46.0); Hemoglobin 19.1 g/dL (12.0-16.0); Immature Granulocytes Auto 0.01 Thou/mm3 (0.00-0.00); Lymphocytes # (Auto) 0.2 Thou/mm3 (1.0-4.8); Lymphocytes % (Auto) 5 % (10-50); Mean Corpuscular HGB Conc 32.2 g/dl (31.0-37.0); Mean Corpuscular Hemoglobin 30.2 pg (25.0-35.0); Mean Corpuscular Volume 94 fL (80-100); Monocytes # (Auto) 0.5 Thou/mm3 (0.0-0.8); Monocytes % (Auto) 12 % (0-12); Neutrophils # (Auto) 3.5 Thou/mm3 (1.8-7.7); Neutrophils % (Auto) 82 % (37-80); Nucleated Red Blood Cell # 0.00 Thou/mm3 (0.00-0.00); Nucleated Red Blood Cell % 0 /100 WBC (0); Platelet Count 134 Thou/mm3 (140-440); RDW Standard Deviation 45.9 fL (36.4-46.3); Red Blood Count 6.32 Miln/mm3 (4.00-5.20); White Blood Count 4.3 Thou/mm3 (3.6-11.0)
[2025-01-27 06:56] LABS: INR 1.2 (0.9-1.3); Partial Thromboplastin Time 44.8 Seconds (22.0-36.0); Prothrombin Time 12.2 Seconds (9.0-12.2)
--- NOTE | 2025-01-27 07:45 | PC.NURSE ---
Back leaving for Licensed Guide at this time.
--- NOTE | 2025-01-27 08:43 | ESPR_ITS ---
<Statement entered by Altagracia Barajas MD - 01/31/25 13:51> I personally examined this patient following cardiac catheterization patient is recovering well underwent PCI stent placement of the large diagonal branch of LAD with excellent results following procedure no complication evaluated patient with resident physician PGY 2 Dr. Juan Wu will continue to monitor the patient closely will keep her 1 more day before discharging her home. Documentation for date of: 01/27/25 Subjective Subjective Interval history: No acute overnight events. Seen and examined in Area Intelligence Technician and patient resting comfortably. Underwent cardiac cath without complications and found to have approximately 80% stenosis in diagonal branch of LAD that was successfully stented. Moderate disease also seen in LAD and RCA but no stents needed. Given her polycythemia, also plan to remove approximately 400 cc of blood in total and gave approximately 500 cc of IVF. BP 160/90 but otherwise vital signs stable. Hemoglobin 19.1 this morning, CHEM panel still pending. Exam Vital Signs Temp Pulse Resp BP Pulse Ox O2 Del Method 97.6 F 77 16 144/94 H 98 Room Air 01/27/25 08:04 01/27/25 08:04 01/27/25 08:04 01/27/25 08:04 01/27/25 08:04 01/27/25 08:04 Narrative Exam General: AOx3, no acute distress, able to speak full sentences HEENT: NC/AT, mucous membranes moist, bilateral sclera anicteric Cardiovascular: regular rate and rhythm, S1/S2 present, no murmurs appreciated Pulmonary: clear to auscultation bilaterally, no rales/rhonchi/wheezes Abdominal: soft, non-tender, non-distended, no rebound/guarding, normal bowel sounds present Musculoskeletal: normal ROM, no peripheral edema Skin: warm and dry, intact, no rashes Neuro: CN II-XII intact, no focal deficits Objective Labs 01/27/25 13:55 01/27/25 13:55 Labs: Laboratory Results - last 24 hr 01/26/25 01/26/25 01/27/25 09:20 18:35 01:30 WBC RBC Hgb Hct MCV MCH MCHC RDW Std Deviation Plt Count Neut % (Auto) Lymph % (Auto) [place] % (Auto) Eos % (Auto) Baso % (Auto) Neut # (Auto) Lymph # (Auto) [place] # (Auto) Eos # (Auto) Baso # (Auto) Immature Gran # (Auto) Absolute Nucleated RBC Immature Gran % Nucleated RBC % PT INR APTT 81.4 H D 52.8 H D 53.2 H Troponin I 0.124 H* 01/27/25 05:43 WBC 4.3 RBC 6.32 H Hgb 19.1 H Hct 59.4 H MCV 94 MCH 30.2 MCHC 32.2 RDW Std Deviation 45.9 Plt Count 134 L Neut % (Auto) 82 H Lymph % (Auto) 5 L [place] % (Auto) 12 Eos % (Auto) 1 Baso % (Auto) 0 Neut # (Auto) 3.5 Lymph # (Auto) 0.2 L [place] # (Auto) 0.5 Eos # (Auto) 0.0 Baso # (Auto) 0.0 Immature Gran # (Auto) 0.01 H Absolute Nucleated RBC 0.00 Immature Gran % 0 Nucleated RBC % 0 PT 12.2 INR 1.2 APTT 44.8 H Troponin I Quality Measures Quality Measures none Assessment & Plan Assessment Current Active Medications: Generic Name Dose Route Start Last Admin Trade Name Freq PRN Reason Stop Dose Admin Acetaminophen 650 mg 01/25/25 21:13 01/26/25 10:17 Acetaminophen 325 Mg Tablet PO 02/24/25 21:12 650 mg Q6H PRN Administration Fever >100.4 Acetaminophen 650 mg 01/25/25 21:29 01/27/25 02:16 Acetaminophen 325 Mg Tablet PO 02/24/25 21:28 650 mg Q6HR PRN Administration PAIN SCALE 1-3 (mild Aspirin 81 mg 01/26/25 09:00 01/26/25 10:18 Aspirin Ec 81 Mg Tabec PO 02/25/25 08:59 81 mg QDAY CRISTIANE Administration Bupropion HCl 150 mg 01/26/25 13:00 01/26/25 15:01 Bupropion Hcl Xl 150 Mg Tabcr PO 02/25/25 12:59 150 mg DAILY CRISTIANE Administration Valganciclovir 450 0 ea 01/26/25 10:30 01/26/25 12:57 Mg Tablet PO 02/25/25 10:29 1 tablet QDAY CRISTIANE Administration Dapsone 100 Mg 0 ea 01/26/25 10:30 01/26/25 12:57 Tablet PO 02/25/25 10:29 1 tablet QDAY CRISTIANE Administration Dextrose 25 ml 01/25/25 21:28 Dextrose 50%-Water Inj 50 Ml Syringe IV 02/24/25 21:27 Q15MIN PRN BG 50-70 responsive npo pt Dextrose 50 ml 01/25/25 21:28 Dextrose 50%-Water Inj 50 Ml Syringe IV 02/24/25 21:27 Q15MIN PRN BG <50 OR BG <70 & pt unresponsive Duloxetine HCl 60 mg 01/26/25 13:00 01/26/25 13:12 Duloxetine Hcl 30 Mg Capsule PO 02/25/25 12:59 60 mg QDAY CRISTIANE Administration Fluconazole 100 mg 01/26/25 09:00 01/26/25 10:18 Fluconazole 100 Mg Tablet PO 02/02/25 08:59 100 mg QDAY CRISTIANE Administration Glucagon 1 mg 01/25/25 21:28 Glucagon Inj 1 Mg Vial IM Q15MIN PRN BG <70, and no IV access Heparin Sodium/Dextrose 25,000 unit in 250 mls @ 9.979 mls/hr 01/25/25 20:15 01/27/25 07:45 Heparin In D5w Ivpb IV 02/08/25 20:14 0 units/kg/hr .Q24H CRISTIANE 0 mls/hr Protocol Titration 11 UNITS/KG/HR Lactated Ringer's 1,000 mls @ 75 mls/hr 01/26/25 13:24 01/27/25 05:50 Lactated Ringers IV 01/27/25 16:02 75 mls/hr .[id number] CRISTIANE Administration Mycophenolate Mofetil 750 mg 01/26/25 09:00 01/26/25 20:03 Mycophenolate 250 Mg Capsule PO 02/25/25 08:59 750 mg BID CRISTIANE Administration Ondansetron HCl 4 mg 01/25/25 21:13 Ondansetron Inj 2 Mg/Ml Inj 2 Ml IVP 02/24/25 21:12 Q6H PRN NAUSEA OR VOMITING Protocol Pantoprazole Sodium 40 mg 01/26/25 12:30 01/26/25 13:01 Pantoprazole Inj 40 Mg Vial IVP 02/25/25 12:29 40 mg QDAY CRISTIANE Administration Prednisone 5 mg 01/26/25 09:00 01/26/25 10:18 Prednisone 5 Mg Tablet PO 02/25/25 08:59 5 mg QAM CRISTIANE Administration Pregabalin 150 mg 01/26/25 21:00 01/26/25 20:42 Pregabalin 50 Mg Capsule PO 02/25/25 20:59 150 mg HS CRISTIANE Administration Sennosides 1 tab 01/25/25 21:29 Senna Tablet PO 02/24/25 21:28 QDAY PRN CONSTIPATION Protocol Tacrolimus 2 mg 01/26/25 09:00 01/26/25 20:04 Tacrolimus 1 Mg Capsule PO 02/25/25 08:59 2 mg BID CRISTIANE Administration Plan 49-year-old female with a history of CAD status post stents in LAD, ESRD s/p renal transplant (08/2024), polycythemia, hypertension, hyperlipidemia, type 1 diabetes mellitus who is admitted for acute coronary syndrome. #Acute coronary syndrome #NSTEMI #History of CAD status post stents in LAD (2020) Presents with some weakness with associated shortness of breath and nausea for the last 4 days but no chest discomfort. History of stent placement in LAD in 2020 but no other stents placed since then. 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 Initial troponin 0.137 and increased to 0.162 but then down trended 0.133. Initial EKG with nonspecific T-ST changes and second EKG unremarkable. Echo: EF 55 to 60%, normal LV size and function, normal RV size and function, trace MR and TR. Cardiac cath: 80% stenosis in diagonal branch of LAD that was successfully stented. Moderate disease also seen in LAD and RCA but no stents needed. Given polycythemia, also plan to remove 400 cc of blood in total and give 500 cc of IVF. ? DAPT with aspirin 81 mg daily and ticagrelor 90 mg twice daily ? Statin intolerance secondary to muscles aches ? Will start patient on repatha vs leqvio outpatient with LDL goal < 50 ? If remains stable overnight, can likely be discharged from cardiology standpoint ? Follow-up in clinic within 1-2 weeks of discharge #Polycythemia #ESRD s/p renal transplant #Diabetes mellitus #Hypertension #Hyperlipidemia ? Continue management per primary team ----- Plan discussed with attending physician Dr. Karl Lay MD PGY-2 Internal Medicine
--- NOTE | 2025-01-27 09:59 | PC.NURSE ---
therapeutic phlebotomy is being performed by erika dominguez
[2025-01-27] MEDS: ASPIRIN 81 MG CHEW PO (10:12)
--- NOTE | 2025-01-27 11:36 | PC.NURSE ---
0900 Therapeutic Phlebotomy performed by Dr. Barajas in the golf course laborer 125 ml removed. 500ml of 1/2 NS bolus given per order 0950 Therapeutic phlebotomy performed 50 mls. Bolus still running. Per MD order 1020 Therapeutic phlebotomy perfomed 50 mls removed. Per MD order 1100 Therapeutic phlebotomy performed 50 mls removed. Per MD order
--- NOTE | 2025-01-27 12:06 | PC.NURSE ---
1130 and 1200 50mls of Blood removed into collection bag. Total of 250ml removed per MD order. Collection bag removed and line flushed with 20mls of saline. Patient AAOx3. No signs or symptoms of acute distress.
[2025-01-27] MEDS: HYDROcodone/APAP 5/325 TABLET 1 TAB PO (12:57)
--- NOTE | 2025-01-27 12:59 | PD.RESPRO ---
Documentation for date of: 01/27/25 Senior resident attestation: Patient evaluated and examined at the bedside, plan of care discussed with rest of the team including my attending physician, except as noted. Patient complained of presyncopal symptoms, reported that she felt dizzy and nauseous and was not able to eat well for the past few days, reported she is unable to take a few steps due to vomiting/vertigo, is asymptomatic laying down at rest, but as soon as she started to ambulate becomes symptomatic. Pt admitted for NSTEMI, s/p cardiac cath, s/p PCI to Diagonal branch on LAD, #NSTEMI type I? Per cardiology, patient has history of PCI to LAD in the past, given current troponin elevation, patient is high risk, patient will be made n.p.o. at midnight, currently on heparin drip, 01/27/25 s/p cardiac cath, s/p PCI to Diagonal branch on LAD, currently on ASA, brillinta and atorvastatin. #GILDA?baseline creatinine seems to be normal, currently creatinine 1.4, no improvement on IV fluids, will increase rate and encourage p.o. diet. 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 #Dizziness/vertigo?symptoms related to positional change, possible differentials include BPPV , labyrinthitis, orthostatic hypotension #Presyncopal symptoms?likely secondary to orthostatic hypotension,Patient had positive orthostatic vitals, continue IV fluids. #Renal transplant status?continue home immunosuppressive medications. Quresh PGY3 Subjective Subjective Interval history: Patient was seen and examined at bedside today; no acute events overnight. She was taken to laboratory mechanical technician in the AM, where stent was placed in diagonal branch of LAD. Post-cath, patient is comforatble with no actue compalints. Says that dizziness has lessend. Patient was asked if she had ever been on a statin; she says she has fibromyalgia, and the statin made it worse, and that Dr. Mcneill would start repatha. Exam Vital Signs Temp Pulse Resp BP Pulse Ox O2 Del Method 97.4 F 78 17 137/97 H 97 Room Air 01/27/25 09:45 01/27/25 12:30 01/27/25 12:30 01/27/25 12:30 01/27/25 12:30 01/27/25 12:30 Narrative Exam General: A/O x3, no acute distress, well-nourished, well-developed, renal transplant scar present Eyes: PERRL, EOMI. Anicteric, vision grossly intact. Ears: No ear pain, no ear discharge, Hearing grossly intact. Nose: No nasal discharge. Mouth/Throat: Moist mucous membranes, no redness, no lesions. Neck: Neck supple, non-tender, no cervical lymphadenopathy. Lungs: Clear RESHMA to auscultation and percussion, No accessory muscle use. Cardio: Normal S1/S2, regular rhythm, no murmurs, no JVD or carotid bruits. Abdomen: Soft, non-tender, no palpable masses, peristalsis present, no guarding or rebound. Extremities: Symmetrical, no significant deformities, no peripheral edema , non-tender, peripheral pulses presents. Skin: No rashes, no lesions, warm to touch. Neuro: No focal neurological deficits. Psych: Cooperative, appropriate mood and effect. Objective Labs 01/28/25 05:10 01/28/25 12:08 Labs: Laboratory Results - last 24 hr 01/26/25 01/27/25 01/27/25 18:35 01:30 05:43 WBC 4.3 RBC 6.32 H Hgb 19.1 H Hct 59.4 H MCV 94 MCH 30.2 MCHC 32.2 RDW Std Deviation 45.9 Plt Count 134 L Neut % (Auto) 82 H Lymph % (Auto) 5 L Gladwin % (Auto) 12 Eos % (Auto) 1 Baso % (Auto) 0 Neut # (Auto) 3.5 Lymph # (Auto) 0.2 L Gladwin # (Auto) 0.5 Eos # (Auto) 0.0 Baso # (Auto) 0.0 Immature Gran # (Auto) 0.01 H Absolute Nucleated RBC 0.00 Immature Gran % 0 Nucleated RBC % 0 PT 12.2 INR 1.2 APTT 52.8 H D 53.2 H 44.8 H Quality Measures Quality Measures none Assessment & Plan Assessment Current Active Medications: Generic Name Dose Route Start Last Admin Trade Name Joel PRN Reason Stop Dose Admin Acetaminophen 650 mg 01/25/25 21:13 01/26/25 10:17 Acetaminophen 325 Mg Tablet PO 02/24/25 21:12 650 mg Q6H PRN Administration Fever >100.4 Acetaminophen 650 mg 01/25/25 21:29 01/27/25 10:16 Acetaminophen 325 Mg Tablet PO 02/24/25 21:28 650 mg Q6HR PRN Administration PAIN SCALE 1-3 (mild Aspirin 81 mg 01/28/25 09:00 Aspirin Ec 81 Mg Tabec PO 02/27/25 08:59 QDAY CRISTIANE Atorvastatin Calcium 80 mg 01/27/25 21:00 Atorvastatin Calcium 20 Mg Tablet PO 02/26/25 20:59 HS CRISTIANE Bupropion HCl 150 mg 01/26/25 13:00 01/26/25 15:01 Bupropion Hcl Xl 150 Mg Tabcr PO 02/25/25 12:59 150 mg DAILY CRISTIANE Administration Valganciclovir 450 0 ea 01/26/25 10:30 01/26/25 12:57 Mg Tablet PO 02/25/25 10:29 1 tablet QDAY CRISTIANE Administration Dapsone 100 Mg 0 ea 01/26/25 10:30 01/26/25 12:57 Tablet PO 02/25/25 10:29 1 tablet QDAY CRISTIANE Administration Dextrose 25 ml 01/25/25 21:28 Dextrose 50%-Water Inj 50 Ml Syringe IV 02/24/25 21:27 Q15MIN PRN BG 50-70 responsive npo pt Dextrose 50 ml 01/25/25 21:28 Dextrose 50%-Water Inj 50 Ml Syringe IV 02/24/25 21:27 Q15MIN PRN BG <50 OR BG <70 & pt unresponsive Duloxetine HCl 60 mg 01/26/25 13:00 01/26/25 13:12 Duloxetine Hcl 30 Mg Capsule PO 02/25/25 12:59 60 mg QDAY CRISTIANE Administration Fluconazole 100 mg 01/26/25 09:00 01/26/25 10:18 Fluconazole 100 Mg Tablet PO 02/02/25 08:59 100 mg QDAY CRISTIANE Administration Glucagon 1 mg 01/25/25 21:28 Glucagon Inj 1 Mg Vial IM Q15MIN PRN BG <70, and no IV access Lactated Ringer's 1,000 mls @ 75 mls/hr 10/19/25 13:24 01/27/25 05:50 Lactated Ringers IV 01/27/25 16:02 75 mls/hr .[id number] CRISTIANE Administration Mycophenolate Mofetil 750 mg 01/26/25 09:00 01/26/25 20:03 Mycophenolate 250 Mg Capsule PO 02/25/25 08:59 750 mg BID CRISTIANE Administration Ondansetron HCl 4 mg 01/25/25 21:13 Ondansetron Inj 2 Mg/Ml Inj 2 Ml IVP 02/24/25 21:12 Q6H PRN NAUSEA OR VOMITING Protocol Pantoprazole Sodium 40 mg 01/26/25 12:30 01/26/25 13:01 Pantoprazole Inj 40 Mg Vial IVP 02/25/25 12:29 40 mg QDAY CRISTIANE Administration Prednisone 5 mg 01/26/25 09:00 01/26/25 10:18 Prednisone 5 Mg Tablet PO 02/25/25 08:59 5 mg QAM CRISTIANE Administration Pregabalin 150 mg 01/26/25 21:00 01/26/25 20:42 Pregabalin 50 Mg Capsule PO 02/25/25 20:59 150 mg HS CRISTIANE Administration Sennosides 1 tab 01/25/25 21:29 Senna Tablet PO 02/24/25 21:28 QDAY PRN CONSTIPATION Protocol Tacrolimus 2 mg 01/26/25 09:00 01/26/25 20:04 Tacrolimus 1 Mg Capsule PO 02/25/25 08:59 2 mg BID CRISTIANE Administration Ticagrelor 90 mg 01/27/25 21:00 Ticagrelor 90 Mg Tablet PO 02/26/25 20:59 BID CRISTIANE Plan Patient is a 49-year-old female with past medical history of end-stage renal disease secondary to type 1 diabetes with renal transplant August 2024, hypertension, hyperlipidemia presenting to the ER on 01/25/2025 for dizziness; patient was admitted for workup of potential acute coronary syndrome and polycythemia. # Acute coronary syndrome (NSTEMI type I) Troponins elevated 0.137 on initial presentation. Trending of troponins 0.137--->0.162--->0.133. Patient has previous OK with LAD stent placement and renal transplant, which are both risk factors. No changes seen on EKG on 01/25/2025 Echo 01/26 shows EF 55-60% Cardiac cath performed 01/27/25, stent placed in LAD diagonal branch Plan: Brillinta, aspirin 81, consider repatha instead of statin secondary to patient history of fibromyalgia made worse by statin #Presyncopal event #Hypotensive episodes #Orthostatic hypotension #Hx of hypertesion More likely presyncopal vs dizziness due to feeling of about to pass out vs room spinning; patient had not been eating well over past few days. Orthostatic vitals positive. BP was 95/68 on admission. Plan: Hold home nifedipine and losartan secondary to soft BP # Polycythemia Patient hemoglobin on 01/25/2025 was 20.5; on 01/26/2025 it is 19.1; during cardiac cath, removed 400cc blood and gave 500cc IV fluids Plan: Continue to monitor hemoglobin #GILDA Creatinine 1.4 on admission, and 1.2 today; baseline post-transplant is 0.8-1.0. Plan: Trend # ESRD status post transplantation. # GILDA Taking mycophenolate, tacrolimus and prednisone at home Follows [facility] [place]. Plan: Continue on home medication Prednisone 5mg qday,Mycophenolate 750mg BID Continuing Prophylactic medications Dapsone 100mg,flucanazole 100mg,valganocyclovir 450mg Consulted .Net Architect Dr Samaniego # Diabetes type 1 Uses insulin pump at home; patient does not report any hypoglycemic episodes, and when she does have those episodes they do not feel like the dizziness or syncopal events that she was feeling on this admission Plan: Patient will manage insulin with home pump; has brought humalog from home for pump q6h glucose checks #Hx of depression and fibromyalgia Home meds include wellbutrin lyrica cymbalta. Plan: Restart home meds Disposition: Tele DVT prophylaxis: SCD GI prophylaxis: Pantoprazole Diet: carb consistent low Lines: PIV CODE STATUS: Full code This case was discussed with my attending physician, Dr. Ba, and senior resident, Dr. Sargent. Jefferson Gomes MD-PhD, PGY1 Attending Provider Attestation/Addendum I have seen and examined the patient. I was physically present for the maloney portions of the services provided including history, physical exam, diagnosis, treatment plans and orders. I agree with assessment and plan of care as documented by residents. Patient seen and examined at bedside this evening. No acute overnight events. States that she is feeling well. Underwent catheter catheterization today with cardiology, found to have 80% stenosis of diagonal branch of left anterior descending artery, underwent successful PCI stent placement. Patient also had 400 cc of blood removed and 500 cc of IV fluid bolus. We will closely monitor her overnight. If remains stable, we will plan for discharge in next 24 to 48 hours. Even though this this note was carefully revised there may still be minor errors in manager academic due to voice recognition software. Roberto Ba MD
--- NOTE | 2025-01-27 13:15 | PC.NURSE ---
1235 patient is awake, alert, breathing unlabored, s/p LHC by Dr. Garcia, arterial sheat present to right groin, report received from Zoë MYERS, will wait at least 30 minutes to check next ACT. Need ACT 170 to remove arterial sheath. 1257 norco PO given with jello and water, patient having lower back pain 1214 report given to Zoë MYERS
[2025-01-27 13:19] LABS: ACT (CATH LAB ONLY) > 400.0 Seconds (89-169)
[2025-01-27 13:19] LABS: ACT (CATH LAB ONLY) 245.0 Seconds (89-169)
[2025-01-27] MEDS: MORPHINE SULF INJ 4 MG/ML VIAL IVP (14:10)
[2025-01-27 14:50] LABS: Alanine Aminotransferase 12 U/L (10-49); Albumin, Serum 3.5 gm/dL (3.5-5.0); Albumin/Globulin Ratio 2.1 (1.2-2.2); Alkaline Phosphatase 75 U/L (46-116); Anion Gap 12 (7-16); Aspartate Amino Transferase 34 U/L (0-34); BUN/Creatinine Ratio 11 Ratio (12-20); Bilirubin,Total 1.1 mg/dL (0.3-1.2); Blood Urea Nitrogen 13 mg/dL (9-23); Calcium 9.2 mg/dL (8.3-10.6); Calcium (Corrected) 9.6 mg/dL (8.5-10.1); Carbon Dioxide 25.2 mMol/L (20.0-31.0); Chloride 103 mMol/L (98-107); Creatinine (Component) 1.2 mg/dL (0.6-1.3); Estimated Creatinine Clearance 70.1 mL/min (>60); Globulin 1.7 gm/dL (2.3-3.5); Glucose 119 mg/dL (74-106); Magnesium 1.5 mg/dL (1.6-2.6); Osmolality,Calculated 280 (275-295); Phosphorous 2.1 mg/dL (2.4-5.1); Potassium 4.5 mMol/L (3.4-5.1); Sodium 140 mMol/L (136-145); Total Protein 5.2 gm/dL (5.7-8.2); eGFR 55 See Note
[2025-01-27] MEDS: hydrALAZINE INJ 20 MG/ML VIAL 10 MG IVP (14:51)
[2025-01-27 15:33] LABS: Basophils # (Auto) 0.0 Thou/mm3 (0.0-0.2); Basophils % (Auto) 1 % (0-2.5); Eosinophils # (Auto) 0.0 Thou/mm3 (0.0-0.5); Eosinophils % (Auto) 1 % (0-10); Hematocrit 58.0 % (36.0-46.0); Hemoglobin 18.5 g/dL (12.0-16.0); Immature Granulocytes Auto 0.02 Thou/mm3 (0.00-0.00); Lymphocytes # (Auto) 0.3 Thou/mm3 (1.0-4.8); Lymphocytes % (Auto) 6 % (10-50); Mean Corpuscular HGB Conc 31.9 g/dl (31.0-37.0); Mean Corpuscular Hemoglobin 30.1 pg (25.0-35.0); Mean Corpuscular Volume 94 fL (80-100); Monocytes # (Auto) 0.6 Thou/mm3 (0.0-0.8); Monocytes % (Auto) 13 % (0-12); Neutrophils # (Auto) 3.6 Thou/mm3 (1.8-7.7); Neutrophils % (Auto) 80 % (37-80); Nucleated Red Blood Cell # 0.00 Thou/mm3 (0.00-0.00); Nucleated Red Blood Cell % 0 /100 WBC (0); Platelet Count 120 Thou/mm3 (140-440); RDW Standard Deviation 47.5 fL (36.4-46.3); Red Blood Count 6.15 Miln/mm3 (4.00-5.20); White Blood Count 4.5 Thou/mm3 (3.6-11.0)
--- NOTE | 2025-01-27 15:39 | PC.SS ---
Rounding Note: Plan is for cardiac cath today. D/C possibly tomorrow.
--- NOTE | 2025-01-27 16:40 | PC.NURSE ---
@1600- Report via phone from Lead Simulation Modeling Engineer- Zoë Stent placement of LAD branch through RT groin, dressed with tegaderm/gauze Pt was given 2mg Versed, 50mcg of Fentanyl, 7000 un Heparin, 180mg Brilinta, 81mg Asprin Heparin gtt. DCd Brilinta to be given tonight and Aspirin daily Phlebotomy performed with 250cc out and replaced with 250cc IVF. Vitals: BP 123/75, 91 bpm, NSR, 95% on RA. Pt to remain bedrest for additional 4 hours (till 2100) no more then 30 degrees elevated. Pt arrived to Tele unit @1640. Rt groin assessed and site is clean, dry, intact, no signs of hematoma. BP 114/72, 87 bpm
--- NOTE | 2025-01-27 16:50 | PC.NURSE ---
patient transferred back to room via gurney. hand off report given to ann dominguez. ann dominguez and I assessed right groin site. site is soft, flat, slighly tender, and no signs of hematoma. dressing is clean dry and intact. patient alert and oriented. GCS of 15
[2025-01-27] MEDS: VALGANCICLOVIR 450 MG TABLET PO (17:06)
[2025-01-27] MEDS: DAPSONE 100 MG TABLET PO (17:06)
[2025-01-27] MEDS: TACROLIMUS 1 MG CAPSULE 2 MG PO ×2 (17:08→23:00)
[2025-01-27] MEDS: BuPROPion HCL XL 150 MG TABCR PO (17:08)
[2025-01-27] MEDS: DULoxetine HCL 30 MG CAPSULE 60 MG PO (17:09)
[2025-01-27] MEDS: MYCOPHENOLATE 250 MG CAPSULE 750 MG PO ×2 (17:09→23:01)
[2025-01-27] MEDS: FLUCONAZOLE 100 MG TABLET PO (17:10)
[2025-01-27] MEDS: LIDOCAINE 5% 1 PATCH TOP (18:00)
[2025-01-27] MEDS: ATORVASTATIN CALCIUM 20 MG TABLET 80 MG PO (23:00)
[2025-01-27] MEDS: PREGABALIN 50 MG CAPSULE 150 MG PO (23:00)
[2025-01-27] MEDS: TICAGRELOR 90 MG TABLET PO (23:01)
[2025-01-28] VITALS (7 sets, daily range): BP systolic 135–145; BP diastolic 83–97; PULSE 72–101; RESP 14–19; TEMP 36–36.2; O2SAT 91–97; BMI 30.7
[2025-01-28 05:49] LABS: Basophils # (Auto) 0.0 Thou/mm3 (0.0-0.2); Basophils % (Auto) 0 % (0-2.5); Eosinophils # (Auto) 0.0 Thou/mm3 (0.0-0.5); Eosinophils % (Auto) 1 % (0-10); Hematocrit 54.4 % (36.0-46.0); Hemoglobin 17.4 g/dL (12.0-16.0); Immature Granulocytes Auto 0.01 Thou/mm3 (0.00-0.00); Lymphocytes # (Auto) 0.2 Thou/mm3 (1.0-4.8); Lymphocytes % (Auto) 4 % (10-50); Mean Corpuscular HGB Conc 32.0 g/dl (31.0-37.0); Mean Corpuscular Hemoglobin 30.1 pg (25.0-35.0); Mean Corpuscular Volume 94 fL (80-100); Monocytes # (Auto) 0.5 Thou/mm3 (0.0-0.8); Monocytes % (Auto) 11 % (0-12); Neutrophils # (Auto) 3.9 Thou/mm3 (1.8-7.7); Neutrophils % (Auto) 84 % (37-80); Nucleated Red Blood Cell # 0.00 Thou/mm3 (0.00-0.00); Nucleated Red Blood Cell % 0 /100 WBC (0); Platelet Count 126 Thou/mm3 (140-440); RDW Standard Deviation 46.7 fL (36.4-46.3); Red Blood Count 5.79 Miln/mm3 (4.00-5.20); White Blood Count 4.7 Thou/mm3 (3.6-11.0)
[2025-01-28 06:02] LABS: INR 1.1 (0.9-1.3); Prothrombin Time 11.5 Seconds (9.0-12.2)
[2025-01-28 06:15] LABS: Alanine Aminotransferase 16 U/L (10-49); Albumin, Serum 3.4 gm/dL (3.5-5.0); Albumin/Globulin Ratio 1.7 (1.2-2.2); Alkaline Phosphatase 71 U/L (46-116); Anion Gap 9 (7-16); Aspartate Amino Transferase 25 U/L (0-34); BUN/Creatinine Ratio 5 Ratio (12-20); Bilirubin,Total 0.9 mg/dL (0.3-1.2); Blood Urea Nitrogen 7 mg/dL (9-23); Calcium 9.3 mg/dL (8.3-10.6); Calcium (Corrected) 9.8 mg/dL (8.5-10.1); Carbon Dioxide 24.7 mMol/L (20.0-31.0); Chloride 104 mMol/L (98-107); Creatinine (Component) 1.3 mg/dL (0.6-1.3); Estimated Creatinine Clearance 64.6 mL/min (>60); Globulin 2.0 gm/dL (2.3-3.5); Glucose 121 mg/dL (74-106); Magnesium 1.6 mg/dL (1.6-2.6); Osmolality,Calculated 274 (275-295); Phosphorous 2.2 mg/dL (2.4-5.1); Potassium 4.5 mMol/L (3.4-5.1); Sodium 138 mMol/L (136-145); Total Protein 5.4 gm/dL (5.7-8.2); eGFR 50 See Note
[2025-01-28] MEDS: NAPH,KPH MBDB 1 PACKET (1.5 GM) PO (07:47)
[2025-01-28] MEDS: Magnesium Sulfate 2 GM Ivpb 2 GM/50 ML BAG IV (07:47)
[2025-01-28] MEDS: RINGERS LACTATED 500 ML 500 ML 125 ML IV (08:04)
[2025-01-28] MEDS: FLUCONAZOLE 100 MG TABLET PO (08:11)
[2025-01-28] MEDS: ASPIRIN EC 81 MG TABEC PO (08:11)
[2025-01-28] MEDS: MYCOPHENOLATE 250 MG CAPSULE 750 MG PO (08:11)
[2025-01-28] MEDS: TICAGRELOR 90 MG TABLET PO (08:11)
[2025-01-28] MEDS: DULoxetine HCL 30 MG CAPSULE 60 MG PO (08:11)
[2025-01-28] MEDS: BuPROPion HCL XL 150 MG TABCR PO (08:12)
[2025-01-28] MEDS: DAPSONE 100 MG TABLET PO (08:16)
[2025-01-28] MEDS: VALGANCICLOVIR 450 MG TABLET PO (08:16)
[2025-01-28] MEDS: TACROLIMUS 1 MG CAPSULE 2 MG PO (08:17)
--- NOTE | 2025-01-28 08:49 | ESOP_ITS ---
RE: LUCRETIA PINA : 1975 DATE OF OPERATION: 01/27/2025 PROCEDURES PERFORMED: 1. Emergency diagnostic left heart catheterization, selective coronary angiogram, left ventricular angiogram, CPT 44458. 2. Ultrasound-guided access right femoral artery. 3. Iliac femoral angiogram. 4. PCI PTCA and stent placement of the diagonal branch of the anterior descending artery. Pre-procedure stenosis 80%, post procedure stenosis 0%. Pre-procedure GENE flow 3, post procedure GENE flow 3. CPT 38215. 5. Conscious sedation for 30 minute duration. DIAGNOSES: 1. Acute [id number] elevation myocardial infarction. 2. Shortness of breath. 3. Known coronary artery disease status post stent placement. HISTORY AND INDICATIONS: Patient is a 49-year-old lady with a history of chronic kidney disease status post renal transplant surgery in 2024, polycythemia following kidney transplant procedure, history of known CAD stent placement left anterior descending artery in 2021, diabetes mellitus on insulin requiring type 1 diabetes mellitus, hypertension, admitted to the hospital with severe shortness of breath, chest discomfort, tightness, on minimal activity and at rest, acute coronary syndrome, unstable angina pectoris was found to have elevated troponin level 0.1, acute [id number] elevation myocardial infarction, ACS acute coronary syndrome symptoms and troponin level was positive for myocardial infarction hence coronary angiogram and cardiac catheterization recommended on urgent basis for evaluation of coronary artery disease, underlying CAD, possible stenosis and intervention. PROCEDURE DETAILS: Patient was brought to the cardiac catheterization laboratory where she was given 2 mg of Versed, 50 mcg of fentanyl for conscious sedation. Right femoral approach was taken. Right femoral artery cannulated by micropuncture technique. A 6-Russian sheath was introduced. Selective right and left coronary angiogram performed by Billy catheter, 5- Russian FR4 FL4 diagnostic catheter. The left heart catheterization and left ventricular angiogram performed by 5-Russian FR4 diagnostic catheter. Diagnostic procedure showed following findings: Right coronary artery is large and dominant showed evidence of PDA, large PL branches. Proximal RCA showed a 30% plaque. Left coronary system, left main coronary artery is normal. Left anterior descending artery showed a stent in the proximal mid segments which is widely patent. Distal to the stent is moderate 30-40% disease of the LAD, not significant. Left anterior descending artery gives a very large diagonal branch 2.5 millimeter vessel showed a discrete 80% stenosis, appears to be the culprit lesion causing myocardial infarction. Circumflex artery is non-dominant and appeared normal. Left ventricular pressure recorded to be 126/10, EDP 10. Aortic pressure 126/80. No gradient across the aortic valve. Left ventricular angiogram showed evidence of normal LV wall motion, ejection fraction 60%. Following diagnostic procedure, PCI was undertaken. Percutaneous coronary intervention undertaken. Class 1 indication because of acute coronary syndrome and severe stenosis of diagonal branch of the LAD, major diagonal branch. Patient was given IV heparin, a total of 7000 units. ACT was over 300. Proceed with PCI. Aspirin, Plavix, Brilinta loading dose was given yesterday. Additional dose is given today. A 6-Russian JL4 guiding catheter was used to cannulate the left main coronary artery. A 0.014 runthrough guidewire was used to cross the lesion successfully. Direct stent placement was performed by 2.5 mm x 8 mm Medtronic Fredy drug- eluting stent was deployed successfully to 12 atmospheric pressure. Final angiogram showed widely patent diagonal branch with no residual stenosis. FINAL SUMMARY: Findings consistent with: 1. No evidence of restenosis at the site of previous stent placement . 2. Moderate stenosis of mid and distal left anterior descending artery distal to the stent. 3. Severe 80% stenosis of the diagonal branch of the left anterior descending artery underwent successful PCI stent placement drug-eluting stent 2.5 x 8 mm stent. 4. Pre-procedure stenosis of 80%, post procedure 0% and GENE flow pre and post is 3. 5. Normal left ventricular function. RECOMMENDATIONS: Patient will continue on aspirin and Brilinta combination for the next 12 months. Patient's LDL cholesterol is 125. Patient is on Zetia, but she should be treated with statin. If she cannot tolerate statins, we will recommend PCSK9 inhibitor, Repatha with LDL cholesterol goal of 50 since she is having aggressive atherosclerosis and right coronary artery in the rest of the vessels. CC: DT: 12:51:33 TT: 13:11:00 Ref: [id number] - TID: [id number] MTDD
[2025-01-28 09:55] LABS: ACT (CATH LAB ONLY) 198.0 Seconds (89-169)
[2025-01-28 09:56] LABS: ACT (CATH LAB ONLY) 173.0 Seconds (89-169)
[2025-01-28 12:38] LABS: Albumin, Serum 3.5 gm/dL (3.5-5.0); Anion Gap 11 (7-16); BUN/Creatinine Ratio 7 Ratio (12-20); Blood Urea Nitrogen 8 mg/dL (9-23); Calcium 9.0 mg/dL (8.3-10.6); Calcium (Corrected) 9.4 mg/dL (8.5-10.1); Carbon Dioxide 22.7 mMol/L (20.0-31.0); Chloride 102 mMol/L (98-107); Creatinine (Component) 1.2 mg/dL (0.6-1.3); Estimated Creatinine Clearance 70.0 mL/min (>60); Glucose 240 mg/dL (74-106); Osmolality,Calculated 278 (275-295); Phosphorous 2.2 mg/dL (2.4-5.1); Potassium 4.6 mMol/L (3.4-5.1); Sodium 136 mMol/L (136-145); eGFR 55 See Note
--- NOTE | 2025-01-28 13:45 | ESDS_ITS ---
Planned Discharge Date 01/28/25 DS: Providers Provider Date of admission: 01/25/25 21:28 Primary care physician: Sofi Granados MD Admitting Provider: Arnie Kenney MD Attending Provider on Admission: Roberto Ba MD Consults: 01/25/25 21:30 Consult to Cardiology Routine Comment: Consulting Provider: Altagracia Gonzales 01/25/25 21:31 Consult to Nephrology Routine Comment: Consulting Provider: Katelyn Samaniego Attending Provider on DC: Roberto Ba MD Discharging Provider: Roberto aB MD Diagnosis Problem List Completed Was Problem List Reviewed/Reconciled?: Yes Hospital Course - Hospitalist Hospital Course Hospital course: Patient is a 49-year-old female with past medical history of hypertension, hyperlipidemia, ESRD s/p renal transplant ( 09/01), DM type I, polycythemia, LAD stent presented to the ED with complaints of dizziness, weakness. She has been experiencing weakness, dizziness, headache since 4 days before presentation. She also had episodes of lightheadedness and near fall. In the ED, patient had her blood pressure on the softer side. Noted to have elevated troponin at 0.162. Hemoglobin was 20.5, creatinine was 1.4, total bilirubin 1.3. With patient's history of CAD status post stent, patient was admitted for management of possible acute coronary syndrome, presyncope. She was started on heparin drip, antiplatelets. During hospitalization, she was found to have positive orthostatic vitals with laying blood pressure of 152/80 versus standing blood pressure of 103/75. Antihypertensives were hold during the hospitalization. Patient underwent cardiac catheterization on 04/29/2021. Was found to have 80% stenosis of diagonal branch of LAD, received successful PCI stent. Patient also had mild GILDA likely secondary to decreased oral intake, had a creatinine of 1.4, GFR 46. Improved slightly with oral/IV hydration. At bedside this morning, patient states she is feeling well and denies any new complaints. Did not have any overnight events. Vital signs are stable except for mild hypertension. Lab results are mostly stable, noted to have creatinine of 1.3, which was slight increase compared to yesterday. Added 500 cc of Ringer's lactate at 125 cc/h, following which creatinine down trended. Patient denies any chest pain, palpitations or shortness of breath. She continues to complain of mild weakness but feels much better compared to admission. Discussed with cardiology, agreed on discharging patient on Aspirin, ticagrelor and her home medications. Recommended to follow-up with PCP, cardiology within 1 to 2 weeks of discharge. Patient will also continue to follow-up with her supervisor housecleaner and transplant surgeon as scheduled. We will discontinue her nifedipine due to concern for orthostatic hypotension. We will continue her losartan 50. Patient was not able to tolerate statin, she is planned to restart Repatha with cardiology outpatient. # Acute coronary syndrome (NSTEMI type I) #Presyncopal event #Orthostatic hypotension #Hypertesion #Polycythemia #GILDA, improving #ESRD status post transplantation. #Diabetes type 1 #Depression and fibromyalgia Time Spent with Patient Time attestation: Total time spent providing and/or coordinating discharge services: 40 min Time spent: Greater than 30 minutes Discharge Results Labs Diagrams: 01/28/25 05:10 01/28/25 12:08 Labs: Short CBC 01/27/25 01/28/25 Range/Units 13:55 05:10 WBC 4.5 4.7 (3.6-11.0) Thou/mm3 Hgb 18.5 H 17.4 H (12.0-16.0) g/dL Hct 58.0 H 54.4 H (36.0-46.0) % Plt Count 120 L 126 L (140-440) Thou/mm3 BMP 01/27/25 01/28/25 01/28/25 13:55 05:10 12:08 Sodium 140 138 136 Potassium 4.5 4.5 4.6 Chloride 103 104 102 Carbon Dioxide 25.2 24.7 22.7 BUN 13 7 L 8 L Creatinine 1.2 1.3 1.2 Glucose 119 H 121 H 240 H D Calcium 9.2 9.3 9.0 Liver Function 01/27/25 01/28/25 01/28/25 Range/Units 13:55 05:10 12:08 Total Bilirubin 1.1 0.9 (0.3-1.2) mg/dL AST 34 25 (0-34) U/L ALT 12 16 (10-49) U/L Alkaline Phosphatase 75 71 (46-116) U/L Albumin 3.5 3.4 L 3.5 (3.5-5.0) gm/dL Exam Vital Signs Temp Pulse Resp BP Pulse Ox O2 Del Method 97.2 F 87 16 141/93 H 94 L Room Air 01/28/25 11:29 01/28/25 11:29 01/28/25 11:29 01/28/25 11:29 01/28/25 11:29 01/28/25 11:29 Narrative GENERAL: Well built male/female, in no acute distress, laying comfortably on bed HEENT: Normocephalic, atraumatic, extraocular movements intact, pupils equal and reactive to light NECK: Supple, no JVD or bruits. CARDIOVASULAR: RRR, S1 and S2 heard, without murmur, rubs or gallops. LUNGS/CHEST: Clear to auscultation bilaterally. No rails, rhonchi, or wheezing. ABDOMEN: Soft, nontender, with normal bowel sounds. No rebound, rigidity, or guarding. EXTREMITIES: No edema, clubbing or cyanosis. No joint deformity. Able to move all limbs. SKIN: Warm and dry without rashes. NEURO: Alert, awake and oriented x4. Cranial nerves: II through XII grossly intact. normal speech, able to answer questions and follow commands appropriately, strength and sensation normal and equal bilaterally, no focal neurological deficits PSYCHIATRIC: Normal mood and affect Discharge Plan Plan Patient Disposition: HOME (Self Care) Patient condition on transfer: Stable Care Plan Goals: You have been started on ticagrelor 90 mg twice daily Please follow-up with your PCP in 1 to 2 weeks of discharge. Please follow-up with cardiology in 1 to 2 weeks after discharge. Discussed about starting Repatha with your PCP or cabinetmaker apprentice Continue follow-up with your supervisor housecleaner and transplant surgeon as scheduled Nifedipine has been discontinued, continue with losartan 50 daily Prescriptions/Referrals Prescriptions/Med Rec: New ticagrelor [Brilinta] 90 mg Tablet 90 mg PO BID 30 Days Qty: 60 0RF Continued clonazepam 0.5 mg tablet 0.5 mg PO HS pregabalin [Lyrica] 150 mg Capsule 150 mg PO HS Gvoke HypoPen 2-Pack 1 mg/0.2 mL auto-injector 1 mg SUBCUT PRN PRN (Reason: Hypoglycemia) Patient Comments: INJECT 1MG SUBCUTANEOUS NEEDED FOR LOW BS 30 DAYS bupropion HCl 150 mg tablet extended release 24 hr 150 mg PO DAILY Patient Comments: TAKE 1 TABLET BY MOUTH EVERY DAY IN THE MORNING FOR 30 DAYS duloxetine 60 mg capsule,delayed release(DR/EC) 60 mg PO QDAY ondansetron HCl 4 mg tablet 4 mg PO TID PRN (Reason: nausea and vomiting) aspirin [Adult Low Dose Aspirin] 81 mg tablet,delayed release (DR/EC) 81 mg PO QDAY 30 Days Qty: 30 2RF tacrolimus 1 mg capsule 2 mg PO Q12H fluconazole 100 mg tablet 100 mg PO Q24H Patient Comments: TAKE 1 TABLET BY MOUTH EVERY DAY valganciclovir 450 mg tablet 450 mg PO DAILY Patient Comments: TAKE 1 TABLET BY MOUTH EVERY DAY mycophenolate mofetil 250 mg capsule 750 mg PO BID Patient Comments: TAKE 3 CAPSULES BY MOUTH TWICE A DAY dapsone 100 mg tablet 100 mg PO DAILY Patient Comments: TAKE 1 TABLET BY MOUTH EVERY DAY pantoprazole 40 mg tablet,delayed release (DR/EC) 40 mg PO DAILY prednisone 5 mg tablet 5 mg PO DAILY Patient Comments: TAKE 1 TABLET BY MOUTH DAILY WITH FOOD losartan 50 mg tablet 50 mg PO DAILY Patient Comments: TAKE 1 TABLET BY MOUTH EVERY DAY Discontinued duloxetine 60 mg capsule,delayed release(DR/EC) 60 mg PO .AM Patient Comments: TAKE 1 CAPSULE BY MOUTH AT BEDTIME nifedipine 90 mg tablet extended release 24hr 90 mg PO PRN Patient Comments: TAKE 1 TABLET BY MOUTH TWICE A DAY ezetimibe 10 mg tablet 10 mg PO HS tacrolimus [Prograf] 0.5 mg capsule 1 mg PO HS Patient Comments: take 1 mg po every night [id number] 250 mg tablet 2 tab PO QDAY Referrals: Sofi Granados MD [Primary Care Provider, Family Practice] Patient/Caregiver Discharge Instructions Education Materials: Recognizing a Heart Attack or Angina, Exercising After a Heart Attack, Heart Attack: Back at Home, [facility] Percutaneous Coronary Intervention Discharge Instructions Print Language: Wolof Activity Restrictions/Additional Instructions: Follow up with dr. gonzales within 1 week Stand Alone Forms: Cynthia Award Info., Patient Portal Info Letter Discharge Order Discharge Orders: Discharge (Routine); Ordered 01/28/25 Ordered By: Roberto Ba Quality Discharge Quality Measures VTE prophylaxis
--- NOTE | 2025-01-28 14:45 | ESPR_ITS ---
<Statement entered by Altagracia Barajas MD - 01/31/25 13:52> The patient is clinically doing well postprocedure day 1 following PCI stent placement apparently has problems taking statins and was on Repatha before recommend continuing Repatha as an outpatient okay to discharge the patient evaluated patient postcardiac catheterization no complications no bleeding from the site of puncture groin puncture site is excellent patient can be discharged home later today evaluated patient with resident physician PGY 2 Dr. Juan LAY agree with the treatment plan recommendation. Documentation for date of: 01/28/25 Subjective Subjective Interval history: No acute overnight events. Seen and examined at bedside and patient resting comfortably in bed. As mentioned previously, will have patient follow-up in clinic and we will start her on Repatha then. Otherwise, can be discharged from cardiology perspective Brilin. Exam Vital Signs Temp Pulse Resp BP Pulse Ox O2 Del Method 97.2 F 87 16 141/93 H 94 L Room Air 01/28/25 11:29 01/28/25 12:00 01/28/25 11:29 01/28/25 11:29 01/28/25 11:29 01/28/25 11:29 Narrative Exam General: AOx3, no acute distress, able to speak full sentences HEENT: NC/AT, mucous membranes moist, bilateral sclera anicteric Cardiovascular: regular rate and rhythm, S1/S2 present, no murmurs appreciated Pulmonary: clear to auscultation bilaterally, no rales/rhonchi/wheezes Abdominal: soft, non-tender, non-distended, no rebound/guarding, normal bowel sounds present Musculoskeletal: normal ROM, no peripheral edema Skin: warm and dry, intact, no rashes Neuro: CN II-XII intact, no focal deficits Objective Labs 01/28/25 05:10 01/28/25 12:08 Labs: Laboratory Results - last 24 hr 01/27/25 01/27/25 01/27/25 12:15 13:15 13:55 WBC 4.5 RBC 6.15 H Hgb 18.5 H Hct 58.0 H MCV 94 MCH 30.1 MCHC 31.9 RDW Std Deviation 47.5 H Plt Count 120 L Neut % (Auto) 80 Lymph % (Auto) 6 L [place] % (Auto) 13 H Eos % (Auto) 1 Baso % (Auto) 1 Neut # (Auto) 3.6 Lymph # (Auto) 0.3 L [place] # (Auto) 0.6 Eos # (Auto) 0.0 Baso # (Auto) 0.0 Immature Gran # (Auto) 0.02 H Absolute Nucleated RBC 0.00 Immature Gran % 0 Nucleated RBC % 0 PT INR Activated Clotting Time 198.0 H 173.0 H Sodium 140 Potassium 4.5 Chloride 103 Carbon Dioxide 25.2 Anion Gap 12 BUN 13 Creatinine 1.2 Estim Creat Clear Calc 70.1 eGFR 55 L BUN/Creatinine Ratio 11 L Glucose 119 H Calculated Osmolality 280 Calcium 9.2 Corrected Calcium 9.6 Phosphorus 2.1 L Magnesium 1.5 L Total Bilirubin 1.1 AST 34 ALT 12 Alkaline Phosphatase 75 Total Protein 5.2 L Albumin 3.5 Globulin 1.7 L Albumin/Globulin Ratio 2.1 01/28/25 01/28/25 05:10 12:08 WBC 4.7 RBC 5.79 H Hgb 17.4 H Hct 54.4 H MCV 94 MCH 30.1 MCHC 32.0 RDW Std Deviation 46.7 H Plt Count 126 L Neut % (Auto) 84 H Lymph % (Auto) 4 L [place] % (Auto) 11 Eos % (Auto) 1 Baso % (Auto) 0 Neut # (Auto) 3.9 Lymph # (Auto) 0.2 L [place] # (Auto) 0.5 Eos # (Auto) 0.0 Baso # (Auto) 0.0 Immature Gran # (Auto) 0.01 H Absolute Nucleated RBC 0.00 Immature Gran % 0 Nucleated RBC % 0 PT 11.5 INR 1.1 Activated Clotting Time Sodium 138 136 Potassium 4.5 4.6 Chloride 104 102 Carbon Dioxide 24.7 22.7 Anion Gap 9 11 BUN 7 L 8 L Creatinine 1.3 1.2 Estim Creat Clear Calc 64.6 70.0 eGFR 50 L 55 L BUN/Creatinine Ratio 5 L 7 L Glucose 121 H 240 H D Calculated Osmolality 274 L 278 Calcium 9.3 9.0 Corrected Calcium 9.8 9.4 Phosphorus 2.2 L 2.2 L Magnesium 1.6 Total Bilirubin 0.9 AST 25 ALT 16 Alkaline Phosphatase 71 Total Protein 5.4 L Albumin 3.4 L 3.5 Globulin 2.0 L Albumin/Globulin Ratio 1.7 Quality Measures Quality Measures none Assessment & Plan Assessment Current Active Medications: Generic Name Dose Route Start Last Admin Trade Name Joel PRN Reason Stop Dose Admin Acetaminophen 650 mg 01/25/25 21:13 01/26/25 10:17 Acetaminophen 325 Mg Tablet PO 02/24/25 21:12 650 mg Q6H PRN Administration Fever >100.4 Acetaminophen 650 mg 01/25/25 21:29 01/27/25 10:16 Acetaminophen 325 Mg Tablet PO 02/24/25 21:28 650 mg Q6HR PRN Administration PAIN SCALE 1-3 (mild Aspirin 81 mg 01/28/25 09:00 01/28/25 08:11 Aspirin Ec 81 Mg Tabec PO 02/27/25 08:59 81 mg QDAY CRISTIANE Administration Atorvastatin Calcium 80 mg 01/27/25 21:00 01/27/25 23:00 Atorvastatin Calcium 20 Mg Tablet PO 02/26/25 20:59 80 mg HS CRISTIANE Administration Bupropion HCl 150 mg 01/26/25 13:00 01/28/25 08:12 Bupropion Hcl Xl 150 Mg Tabcr PO 02/25/25 12:59 150 mg DAILY CRISTIANE Administration Valganciclovir 450 0 ea 01/26/25 10:30 01/28/25 08:16 Mg Tablet PO 02/25/25 10:29 1 tablet QDAY CRISTIANE Administration Dapsone 100 Mg 0 ea 01/26/25 10:30 01/28/25 08:16 Tablet PO 02/25/25 10:29 1 tablet QDAY CRISTIANE Administration Dextrose 25 ml 01/25/25 21:28 Dextrose 50%-Water Inj 50 Ml Syringe IV 02/24/25 21:27 Q15MIN PRN BG 50-70 responsive npo pt Dextrose 50 ml 01/25/25 21:28 Dextrose 50%-Water Inj 50 Ml Syringe IV 02/24/25 21:27 Q15MIN PRN BG <50 OR BG <70 & pt unresponsive Duloxetine HCl 60 mg 01/26/25 13:00 01/28/25 08:11 Duloxetine Hcl 30 Mg Capsule PO 02/25/25 12:59 60 mg QDAY CRISTIANE Administration Fluconazole 100 mg 01/26/25 09:00 01/28/25 08:11 Fluconazole 100 Mg Tablet PO 02/02/25 08:59 100 mg QDAY CRISTIANE Administration Glucagon 1 mg 01/25/25 21:28 Glucagon Inj 1 Mg Vial IM Q15MIN PRN BG <70, and no IV access Mycophenolate Mofetil 750 mg 01/26/25 09:00 01/28/25 08:11 Mycophenolate 250 Mg Capsule PO 02/25/25 08:59 750 mg BID CRISTIANE Administration Ondansetron HCl 4 mg 01/25/25 21:13 Ondansetron Inj 2 Mg/Ml Inj 2 Ml IVP 02/24/25 21:12 Q6H PRN NAUSEA OR VOMITING Protocol Pantoprazole Sodium 40 mg 01/29/25 09:00 Pantoprazole 40 Mg Tablet PO 02/28/25 08:59 QDAY CRISTIANE Protocol Prednisone 5 mg 01/26/25 09:00 01/28/25 08:11 Prednisone 5 Mg Tablet PO 02/25/25 08:59 5 mg QAM CRISTIANE Administration Pregabalin 150 mg 01/26/25 21:00 01/27/25 23:00 Pregabalin 50 Mg Capsule PO 02/25/25 20:59 150 mg HS CRISTIANE Administration Sennosides 1 tab 01/25/25 21:29 Senna Tablet PO 02/24/25 21:28 QDAY PRN CONSTIPATION Protocol Tacrolimus 2 mg 01/26/25 09:00 01/28/25 08:17 Tacrolimus 1 Mg Capsule PO 02/25/25 08:59 2 mg BID CRISTIANE Administration Ticagrelor 90 mg 01/27/25 21:00 01/28/25 08:11 Ticagrelor 90 Mg Tablet PO 02/26/25 20:59 90 mg BID CRISTIANE Administration Plan 49-year-old female with a history of CAD status post stents in LAD, ESRD s/p renal transplant (08/2024), polycythemia, hypertension, hyperlipidemia, type 1 diabetes mellitus who is admitted for acute coronary syndrome. #Acute coronary syndrome #NSTEMI #History of CAD status post stents in LAD (2020) Presents with some weakness with associated shortness of breath and nausea for the last 4 days but no chest discomfort. History of stent placement in LAD in 2020 but no other stents placed since then. Follows carburetor expert in [place] and had recent echo done this year and angiogram done last year - echo unremarkable and angiogram showed some disease but no stents were placed. Initial troponin 0.137 and increased to 0.162 but then down trended 0.133. Initial EKG with nonspecific T-ST changes and second EKG unremarkable. Echo: EF 55 to 60%, normal LV size and function, normal RV size and function, trace MR and TR. Cardiac cath: 80% stenosis in diagonal branch of LAD that was successfully stented. Moderate disease also seen in LAD and RCA but no stents needed. Given polycythemia, also plan to remove 400 cc of blood in total and give 500 cc of IVF. ? DAPT with aspirin 81 mg daily and ticagrelor 90 mg twice daily ? Statin intolerance secondary to muscles aches ? Will start patient on repatha vs leqvio outpatient with LDL goal < 50 ? Can be discharged from cardiology standpoint ? Follow-up in clinic within 1-2 weeks of discharge #Polycythemia #ESRD s/p renal transplant #Diabetes mellitus #Hypertension #Hyperlipidemia ? Continue management per primary team ----- Plan discussed with attending physician Dr. Karl Lay MD PGY-2 Internal Medicine
--- NOTE | 2025-01-28 15:26 | PC.SS ---
Rounding Note: Plan is to d/c patient home today.
== END 2025-01-28 17:15 | disposition home or self-care (01) | DRG 321 ==
LOC: SERX 20:07 → SERHOLD 21:30 → S2NX 01-26 02:22
PROVIDERS: Internal Medicine Cardiovascular Disease; Nurse Practitioner Family; Admitting Provider Internal Medicine; Emergency Provider Emergency Medicine; PCP Family Medicine; Visit Provider Student in an Organized Health Care Education/Training Program
DX: I21.4 Non-ST elevation (NSTEMI) myocardial infarction (principal); N18.6 End stage renal disease; I12.0 Hypertensive chronic kidney disease with stage 5 chronic kidney disease or end stage renal disease; N17.9 Acute kidney failure, unspecified; Z94.0 Kidney transplant status; T86.19 Other complication of kidney transplant; D75.1 Secondary polycythemia; Z96.41 Presence of insulin pump (external) (internal); I25.10 Atherosclerotic heart disease of native coronary artery without angina pectoris; K21.9 Gastro-esophageal reflux disease without esophagitis; E78.5 Hyperlipidemia, unspecified; E10.9 Type 1 diabetes mellitus without complications; I95.1 Orthostatic hypotension; F32.A Depression, unspecified; Z95.5 Presence of coronary angioplasty implant and graft; E10.22 Type 1 diabetes mellitus with diabetic chronic kidney disease; M79.7 Fibromyalgia; I25.2 Old myocardial infarction; I49.3 Ventricular premature depolarization; E86.0 Dehydration; Y83.0 Surgical operation with transplant of whole organ as the cause of abnormal reaction of the patient, or of later complication, without mention of misadventure at the time of the procedure; Z79.624 Long term (current) use of inhibitors of nucleotide synthesis; Z79.82 Long term (current) use of aspirin; Z79.4 Long term (current) use of insulin
CPT/HCPCS: 36415; 70450; 71045; 80053; 80061; 80069; 81001; 83036; 83605; 83735; 83880; 84100; 84145; 84484; 85025; 85347; 85610; 85730; 87040; 87400; 87811; 93005; 93306; 96361; 96365; 96366; 96375; 99152; 99153; 99284; A4649; C1769; C1874; C1887; C1894; J0168; J0360; J0461; J1200; J1643; J1644; J1885; J2250; J2270; J2312; J2371; J2405; J2470; J3010; J3475; J3490; J7120; J7507; J7512; J7517; Q9967; A9270; J2305

== ENCOUNTER → 2025-02-20 | Outpatient (CLI) | payer OTHER, SELFPAY ==
[2025-02-20 14:08] LABS: Collection Type, Urine Clean Catch
[2025-02-20 16:17] LABS: Bacteria,Urine Rare; Bilirubin,Urine Negative (Negative); Blood,Urine 2+ (Negative); Color,Urine Yellow (Lt Yel-Yel); Glucose, Urine Negative (Negative); Ketones,Urine Negative (Negative); Leukocyte Esterase,Urine Positive (Negative); Nitrite,Urine Negative (Negative); PH,Urine 6.5 (5.0-7.0); Protein,Urine 1+ (Neg - Trace); RBC,Urine 39 /hpf (0-3); Specific Gravity,Urine 1.014 (1.001-1.035); Squamous Epithelial Cell,Urine 2 /hpf (0-5); Urobilinogen,Urine Negative mg/dL (0.0-1.0); WBC,Urine 1501 /hpf (0-5)
[2025-02-20 16:22] LABS: Clarity,Urine Cloudy (Clear/Hazy)
== END | disposition home or self-care (01) ==
LOC: SLDO 14:02
PROVIDERS: Referring Provider Family Medicine; Visit Provider Family Medicine
DX: N39.0 Urinary tract infection, site not specified (principal)
CPT/HCPCS: 81001; 87077; 87086; 87186

== ENCOUNTER 2025-03-30 11:15 | Emergency (ER) | payer MEDICARE, OTHER, SELFPAY ==
[2025-03-30 12:15] VITALS: BP 127/89; PULSE 91; RESP 16; TEMP 36.6; O2SAT 97; BMI 30.8
--- NOTE | 2025-03-30 12:26 | PD.EDRME ---
Rapid Medical Screening Exam RME Arrival date/time: 03/30/25 11:15 This is a 49-year-old female that comes into the emergency room with patient has a history of a kidney transplant multiple complaints. Patient has a history of a kidney transplant and is on immunosuppressive therapy. Patient states that she suffers from polycythemia because of the fact that she still has a 3 kidneys. Patient states that her hemoglobin is typically in the 17th. This morning patient states that she had bad dreams and she woke up with a headache and also having some dizziness. Patient also states that she is feeling very anxious. She is having chest pressure and chest tightness. Patient does have a history of CAD and has had stents in the past. Patient also complains of left flank pain/back pain. Patient also has a history of depression and anxiety, high blood pressure and diabetes I have greeted and performed a focused initial assessment of this patient. Initial appropriate labs ordered at this time. A comprehensive ED assessment and evaluation of the patient and analysis of all test and completion of medical decision making process will be conducted by additional ED provider. Chief Complaint: General Adult/Misc Complain Time Seen by Provider: 03/30/25 12:02 Vital signs: Vital Signs Temperature 97.9 F 03/30/25 12:15 Pulse Rate 91 03/30/25 12:15 Respiratory Rate 16 03/30/25 12:15 Blood Pressure 127/89 H 03/30/25 12:15 Pulse Oximetry (%) 97 03/30/25 12:15 Oxygen Delivery Method Room Air 03/30/25 12:15 Exam: Alert and oriented. Breathing even and unlabored, skin warm and dry. Clinical Impression: chest pain
--- NOTE | 2025-03-30 12:29 | EKG_ITS ---
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
--- NOTE | 2025-03-30 12:29 | XR_ITS ---
Examination: CT brain head without contrast. 2-D sagittal coronal reconstructions Date and time of exam: March 30, 2025, 12:40 p.m. INDICATIONS: High blood pressure and dizziness today COMPARISON: January 25, 2025 CTDI: vol (mGy): 49.2 DLP: (mGycm): 971 Technique: Multiple CT axial sections of the brain have been obtained, 5 mm slice thickness. Contrast has not been administered. 2-D sagittal, coronal reconstructions have been obtained Low dose protocols were performed. One or more of the following dose reduction techniques were used; automated exposure control, adjustment of the mA and/or KV according to patient size, use of iterative reconstruction technique. Findings: No significant ventricular enlargement. Intra-axial or extra-axial hemorrhage density is not seen. No mass effect or midline shift Basal cisterns are not remarkable. Fourth ventricle is midline. Cranial vault intact. Impression: Negative for acute hemorrhage, mass effect or midline shift
--- NOTE | 2025-03-30 12:30 | XR_ITS ---
EXAMINATION: PA chest single view TECHNIQUE: Upright PA chest single view Date and time: March 30, 2025, 1340 hours, comparison January 25, 2025 INDICATIONS: Onset chest pain today. FINDINGS: Mild prominence left ventricle No lobar pneumonia or pulmonary edema Intact osseous structures IMPRESSION: No lobar pneumonia or pulmonary edema
[2025-03-30 13:01] LABS: Collection Type, Urine Voided
[2025-03-30 13:04] LABS: Basophils # (Auto) 0.1 Thou/mm3 (0.0-0.2); Basophils % (Auto) 1 % (0-2.5); Eosinophils # (Auto) 0.1 Thou/mm3 (0.0-0.5); Eosinophils % (Auto) 1 % (0-10); Hematocrit 61.2 % (36.0-46.0); Hemoglobin 19.4 g/dL (12.0-16.0); Immature Granulocytes Auto 0.06 Thou/mm3 (0.00-0.00); Lymphocytes # (Auto) 0.3 Thou/mm3 (1.0-4.8); Lymphocytes % (Auto) 2 % (10-50); Mean Corpuscular HGB Conc 31.7 g/dl (31.0-37.0); Mean Corpuscular Hemoglobin 30.0 pg (25.0-35.0); Mean Corpuscular Volume 95 fL (80-100); Monocytes # (Auto) 1.2 Thou/mm3 (0.0-0.8); Monocytes % (Auto) 10 % (0-12); Neutrophils # (Auto) 11.0 Thou/mm3 (1.8-7.7); Neutrophils % (Auto) 86 % (37-80); Nucleated Red Blood Cell # 0.00 Thou/mm3 (0.00-0.00); Nucleated Red Blood Cell % 0 /100 WBC (0); Platelet Count 191 Thou/mm3 (140-440); RDW Standard Deviation 51.5 fL (36.4-46.3); Red Blood Count 6.47 Miln/mm3 (4.00-5.20); White Blood Count 12.8 Thou/mm3 (3.6-11.0)
[2025-03-30 13:26] LABS: B-Type Natriuretic Peptide < 20 pg/mL (0-100)
[2025-03-30 13:27] LABS: Alanine Aminotransferase 15 U/L (10-49); Albumin, Serum 5.0 gm/dL (3.5-5.0); Albumin/Globulin Ratio 1.9 (1.2-2.2); Alkaline Phosphatase 113 U/L (46-116); Anion Gap 9 (7-16); Aspartate Amino Transferase 18 U/L (0-34); BUN/Creatinine Ratio 15 Ratio (12-20); Bilirubin,Total 0.7 mg/dL (0.3-1.2); Blood Urea Nitrogen 22 mg/dL (9-23); Calcium 9.7 mg/dL (8.3-10.6); Calcium (Corrected) 9.7 mg/dL (8.5-10.1); Carbon Dioxide 25.3 mMol/L (20.0-31.0); Chloride 102 mMol/L (98-107); Creatinine (Component) 1.5 mg/dL (0.6-1.3); Estimated Creatinine Clearance 56.1 mL/min (>60); Globulin 2.7 gm/dL (2.3-3.5); Glucose 116 mg/dL (74-106); Osmolality,Calculated 276 (275-295); Potassium 5.0 mMol/L (3.4-5.1); Sodium 136 mMol/L (136-145); Total Protein 7.7 gm/dL (5.7-8.2); Troponin I < 0.020 ng/mL (0.0-0.045); eGFR 42 See Note
[2025-03-30 13:29] LABS: Bacteria,Urine 1+; Bilirubin,Urine Negative (Negative); Blood,Urine Negative (Negative); Color,Urine Lt-Yellow (Lt Yel-Yel); Glucose, Urine Negative (Negative); Ketones,Urine Negative (Negative); Leukocyte Esterase,Urine Negative (Negative); Nitrite,Urine Negative (Negative); PH,Urine 6.0 (5.0-7.0); Protein,Urine Negative (Neg - Trace); RBC,Urine 1 /hpf (0-3); Specific Gravity,Urine 1.014 (1.001-1.035); Squamous Epithelial Cell,Urine 6 /hpf (0-5); Urobilinogen,Urine Negative mg/dL (0.0-1.0); WBC,Urine 1 /hpf (0-5)
[2025-03-30 13:30] LABS: Clarity,Urine Hazy (Clear/Hazy); Culture Indicated,Urine Yes
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
[2025-03-30] MEDS: ACETAMINOPHEN IVPB 1,000 MG/100 ML VIAL 250 MG IV (15:55)
[2025-03-30 16:09] VITALS: BP 135/85; PULSE 77; RESP 17; TEMP 36.6; O2SAT 99
[2025-03-30] MEDS: ONDANSETRON INJ 2 MG/ML INJ 2 ML 4 MG IVP (16:24)
[2025-03-30 17:22] VITALS: BP 136/80; PULSE 79; RESP 17; TEMP 36.5; O2SAT 100
== END 2025-03-30 17:31 | disposition home or self-care (01) ==
PROVIDERS: Nurse Practitioner Family; Emergency Provider Emergency Medicine; PCP Family Medicine
DX: R51.9 Headache, unspecified (principal); R07.9 Chest pain, unspecified; R42 Dizziness and giddiness; R94.31 Abnormal electrocardiogram [ECG] [EKG]; I10 Essential (primary) hypertension; I25.10 Atherosclerotic heart disease of native coronary artery without angina pectoris; Z95.5 Presence of coronary angioplasty implant and graft
CPT/HCPCS: 36415; 70450; 71045; 80053; 81001; 83880; 84484; 85025; 87086; 87502; 87635; 93005; 96365; 96375; 99284; J0131; J2405